=== PATIENT | male | born 1955 | race Caucasian/White ===

== ENCOUNTER 2019-05-23 12:37 | Outpatient (CLI) | payer OTHER, SELFPAY ==
[2019-05-23 13:00] LABS: Basophils Absolute Auto 0.06 K/mm3 (0.00-0.10); Basophils Percent Auto 0.8 % (0.0-1.0); Eosinophils Absolute Auto 0.33 K/mm3 (0.02-0.50); Eosinophils Percent Auto 4.4 % (1.0-6.0); Hematocrit 43.6 % (40.0-54.0); Hemoglobin 14.2 g/dL (14.0-18.0); Immature Granulocyte Absolute 0.03 K/mm3 (0.00-0.00); Immature Granulocyte Percent A 0.4 % (0.0-0.0); Lymphocytes Absolute Auto 2.35 K/mm3 (1.10-4.50); Lymphocytes Percent Auto 31.5 % (18.0-42.0); Mean Corpuscular HGB Conc 32.6 g/dL (32.0-36.0); Mean Corpuscular Hemoglobin 27.4 pg (27.0-31.0); Mean Platelet Volume 10.2 fl (8.7-11.0); Monocytes Absolute Auto 0.69 K/mm3 (0.10-0.90); Monocytes Percent Auto 9.2 % (2.0-11.0); Neutrophils Percent Auto 53.7 % (50.0-70.0); Platelet Count Result 186 K/mm3 (150-420); Red Blood Count 5.19 M/mm3 (4.70-6.10); Red Cell Distribution Width 13.5 % (11.6-14.4); White Blood Count 7.5 K/mm3 (4.8-10.8)
[2019-05-23 13:04] LABS: Add Urine Microscopic? YES; Appearance Urine Clear (Clear); Bilirubin Urine Negative (Negative); Blood Urine Negative (Negative); Color Urine Yellow (Yellow); Glucose Urine UA Negative (Negative); Ketones Urine Negative (Negative); Leukocyte Esterase Ur Negative LEU/UL (Negative); Nitrate Urine Negative (Negative); Protein Urine 1+ (Negative); Specific Grav Ur 1.025 (1.010-1.020); Urobilinogen Urine 0.2 mg/dL (0.2-1.0)
[2019-05-23 13:16] LABS: Hemoglobin A1C 7.4 % (<5.7)
[2019-05-23 13:19] LABS: Creatinine Urine 58.17 mg/dL (40-278)
[2019-05-23 13:30] LABS: Bacteria Urine None seen /hpf; RBC Urine None seen /hpf (0-2); Squamous Epithelial Cell Urine Rare /hpf (Few); WBC Urine None seen /hpf (0-3)
[2019-05-23 13:57] LABS: Microalbumin Urine Random 340.3 mg/L
[2019-05-23 14:29] LABS: Alanine Aminotransferase 32 U/L (16-63); Albumin Level 3.8 g/dL (3.4-5.0); Alkaline Phosphatase 96 U/L (46-116); Anion Gap 16.7 mmol/L (7-16); Aspartate Amino Transferase 19 U/L (15-37); Bilirubin,Total 0.4 mg/dL (0.00-1.00); Blood Urea Nitrogen 38 mg/dL (7-18); Calcium 9.3 mg/dL (8.5-10.1); Carbon Dioxide 22 mmol/L (21-32); Chloride 106 mmol/L (98-108); Cholesterol 191 mg/dL (0-200); Estimated Glomerular Filt Rate 41; Glucose 167 mg/dL (70-99); HDL Direct 47 mg/dL (40-60); LDL Cholesterol Calculated 100 mg/dL (<130); Osmolality Calculated 303 mOsm/kg (285-295); Potassium 4.7 mmol/L (3.5-5.1); Sodium 140 mmol/L (136-145); Thyroid Stimulating Hormone 3.08 uIU/mL (0.36-3.74); Total Protein 7.4 g/dL (6.4-8.2); Triglycerides 222 mg/dL (0-150)
[2019-05-23 21:22] LABS: Prostate Specific Antigen 0.7 ng/mL (< OR = 4.0)
== END 2019-05-23 12:38 | disposition home or self-care (01) ==
LOC: CHSLAB 12:42
PROVIDERS: PCP Internal Medicine; Visit Provider Internal Medicine
DX: Z00.00 Encounter for general adult medical examination without abnormal findings (principal); Z12.5 Encounter for screening for malignant neoplasm of prostate; E11.9 Type 2 diabetes mellitus without complications; I10 Essential (primary) hypertension; E78.5 Hyperlipidemia, unspecified
CPT/HCPCS: 36415; 80053; 80061; 81001; 82043; 83036; 84153; 84443; 85025; G0103

== ENCOUNTER 2022-07-11 09:36 | Outpatient (CLI) | payer MEDICARE, SELFPAY ==
--- NOTE | ~2022-07-11 | US_ITS ---
EXAMINATION: US venous doppler UE RT DATE: 07/11/2022 10:20 INDICATION: Right forearm swelling. TECHNIQUE: Grayscale ultrasound images without and with compression and Doppler ultrasound images of the right upper extremity veins were obtained. COMPARISON: None. FINDINGS: The visualized portions of the right internal jugular vein, subclavian vein, axillary vein, brachial veins, basilic vein, cephalic vein, radial vein, and ulnar vein are patent. IMPRESSION: 1. No deep venous thrombosis. Reviewed, dictated and finalized at location A.
== END 2022-07-11 09:37 | disposition home or self-care (01) ==
PROVIDERS: PCP Internal Medicine; Visit Provider Internal Medicine
DX: M79.89 Other specified soft tissue disorders (principal)
CPT/HCPCS: 93971

== ENCOUNTER 2023-07-16 10:05 | Outpatient (CLI) | payer MEDICARE, SELFPAY ==
--- NOTE | ~2023-07-16 | XR_ITS ---
XR finger 5th LT min 2V DATE: 07/16/2023 10:28 INDICATION: Swelling and redness, possible wooden foreign body fifth fingertip TECHNIQUE: 5 views COMPARISON: None FINDINGS: There is soft tissue swelling of the distal third of the fifth digit. No radiopaque soft ti ssue foreign body or subcutaneous emphysema is detected. No fracture, dislocation, periosteal reactio n or bone destruction. There is osteoarthritic change at the proximal and distal interphalangeal joints of the fifth digit. IMPRESSION: Distal soft tissue swelling; no radiopaque foreign body Osteoarthritis Reviewed, dictated and finalized at location B.
== END 2023-07-16 10:06 | disposition home or self-care (01) ==
LOC: CHSIMG 10:10
PROVIDERS: PCP Internal Medicine; Visit Provider Internal Medicine
DX: L08.89 Other specified local infections of the skin and subcutaneous tissue (principal); M79.89 Other specified soft tissue disorders; M19.042 Primary osteoarthritis, left hand
CPT/HCPCS: 73140

== ENCOUNTER 2023-08-15 10:29 | Outpatient (CLI) | payer MEDICARE, SELFPAY ==
--- NOTE | ~2023-08-15 | MR_ITS ---
EXAMINATION: MR hand LT wo con DATE: 08/15/2023 11:34 INDICATION: Nontraumatic pain and swelling in the fifth digit of the left hand with fluid collection lanced and drained one week prior TECHNIQUE: Magnetic resonance imaging (MRI) of the left hand was performed without intravenous contra st to include the metacarpals and digits. Sequences included sagittal, coronal, and axial proton-dens ity weighted fast spin echo without and with fat saturation. COMPARISON: Radiographs dated 07/16/2023 FINDINGS: Bone alignment is normal. T2 hyperintense lesions which could represent intraosseous cystic change ve rsus erosions most prominent at the radial aspect of the heads of the second and third metacarpals wi th tiny lesion at the medial head of the fourth metacarpal and additional small lesion at the radial aspect of the head of the third proximal phalanx. Bone marrow signal is otherwise normal throughout. No fracture or pathologic marrow replacing process. Polyarticular osteoarthritis which appears genera lly mild with typical distribution at the radial aspect of the carpus and at the metacarpophalangeal and interphalangeal joints. Physiologic amount fluid in the joint spaces. Visualized portions of the flexor and extensor tendons appear normal. There is however moderate amount of fluid consistent with tenosynovitis surrounding the flexor tendons to the fifth digit. The collateral ligament complex at t he metatarsophalangeal and interphalangeal joints appear normal. Intrinsic musculature of the visuali zed left hand is unremarkable. IMPRESSION: 1. Moderate amount of fluid extending along the normal appearing flexor tendons to the fifth digit co nsistent with nonspecific tenosynovitis could be either septic, a septic inflammatory process in the setting of gout or mechanical in etiology. 2. T2 hyperintense lesions at a few of the heads of the metacarpals and at the head of the third prox imal phalanx which could represent degenerative cystic change, intraosseous ganglion cysts or erosion s such as in the setting of gout. Consider correlation with plain radiographs. Reviewed, dictated and finalized at location A. IMPRESSION: 1. Moderate amount of fluid extending along the normal appearing flexor tendons to the fifth digit consistent with nonspecific tenosynovitis could be either s eptic, a septic inflammatory process in the setting of gout or mechanical in et iology. 2. T2 hyperintense lesions at a few of the heads of the metacarpals and at the head of the third proximal phalanx which could represent degenerative cystic ch izzy, intraosseous ganglion cysts or erosions such as in the setting of gout. C onsider correlation with plain radiographs.
== END 2023-08-15 10:30 | disposition home or self-care (01) ==
LOC: CHSIMG 10:31
PROVIDERS: PCP Internal Medicine; Visit Provider Internal Medicine
DX: R22.32 Localized swelling, mass and lump, left upper limb (principal)
CPT/HCPCS: 73218

== ENCOUNTER 2023-12-22 16:29 | Outpatient (CLI) | payer MEDICARE, SELFPAY ==
--- NOTE | ~2023-12-22 | XR_ITS ---
EXAM: XR shoulder RT min 2V DATE: 12/22/2023 17:29 HISTORY: RT SHOULDER PAIN,CHRONIC,LROM . COMPARISON: None available. FINDINGS: Normal mineralization. No fracture or dislocation. No lytic or blastic lesion. Moderate AC joint and severe glenohumeral joint degenerative change. No erosion or periosteal change. Soft tissu es within normal limits. IMPRESSION: Moderate AC joint and severe glenohumeral joint osteoarthritis. Reviewed, dictated and finalized at location K.
== END 2023-12-22 16:30 | disposition home or self-care (01) ==
LOC: CHSIMG 16:32
PROVIDERS: PCP Internal Medicine; Visit Provider Internal Medicine
DX: M25.511 Pain in right shoulder (principal); M19.011 Primary osteoarthritis, right shoulder
CPT/HCPCS: 73030

== ENCOUNTER 2025-03-18 22:42 | Observation (INO) | payer MEDICARE, SELFPAY ==
[2025-03-18] VITALS (8 sets, daily range): BP systolic 139–149; BP diastolic 80–86; PULSE 68–82; RESP 12–24; TEMP 36.8; O2SAT 97–98
--- NOTE | ~2025-03-18 | CT_ITS ---
EXAMINATION: CT abdomen pelvis wo con DATE: 03/19/2025 00:13 INDICATION: Abdominal pain. Abdominal swelling. TECHNIQUE: Computed tomography (CT) of the abdomen and pelvis was performed without intravenous contrast. Automated exposure control and iterative reconstruction technique were employed. The dose-length product was 1126.19 mGy-cm. COMPARISON: CT abdomen and pelvis 10/27/2005 FINDINGS: The visualized portions of the lung bases demonstrate mild atelectasis. There is peripheral septal thickening in right middle lobe and right lower lobe, consistent with mild pulmonary edema versus chronic interstitial lung disease. There is a 15 mm nodule in right lower lobe. There is a small right pleural effusion. The heart size is normal. There are coronary artery calcifications. No pericardial effusion. The liver, gallbladder, spleen, pancreas, adrenal glands, and kidneys are normal. There is no urolithiasis. There is a gastrostomy tube in expected position. There is a large volume of stool in the colon with distention of the rectum and fat stranding around the rectum, consistent with stercoral colitis. There is diverticulosis of the colon without evidence of diverticulitis. There are no pathologically enlarged lymph nodes. There is no free intraperitoneal fluid. There is a left inguinal hernia containing fat. There is mild thoracic spondylosis and moderate lumbar spondylosis. IMPRESSION: 1. Stercoral colitis. 2. 15 mm right lower lobe pulmonary nodule, which may be infection or primary bronchogenic carcinoma. Noncontrast chest CT is recommended in 1-3 months. 3. Interstitial opacities in right middle lobe and right lower lobe, consistent with mild pulmonary edema versus chronic interstitial lung disease. 4. Small right pleural effusion. Reviewed, dictated and finalized at location E. [place] EVENT ASSISTANT IMPRESSION: 1. Stercoral colitis. 2. 15 mm right lower lobe pulmonary nodule, which may be infection or primary b ronchogenic carcinoma. Noncontrast chest CT is recommended in 1-3 months. 3. Interstitial opacities in right middle lobe and right lower lobe, consistent with mild pulmonary edema versus chronic interstitial lung disease. 4. Small right pleural effusion.
--- NOTE | 2025-03-18 22:52 | ECG_ITS ---
Test Date: 2025-03-18 23:29:23 Measurements Intervals [place] Rate: 66 P: 0 IA: 0 QRS: 39 QRSD: 84 T: 139 QT: 401 QTc: 421 Interpretive Statements ATRIAL FIBRILLATION BORDERLINE ST ABNORMALITY- ANTEROLAT/INF LEADS BASELINE ARTIFACT- I, II, III, AVR, AVL, AVF, V1-V6 ABNORMAL ECG No previous ECG available for comparison Electronically Signed On 03-19-2025 09:09:12 NURSING SCHEDULER by Jalen Stack D.O.
[2025-03-18] MEDS: SODIUM CHLORIDE 0.9% IV 1,000 ML 999 ML IV CONT (23:05)
[2025-03-18] MEDS: HYDROmorphone HCL INJ (*CRX) 1 MG/ML SYR 0.5 MG IV PUSH (23:08)
[2025-03-18 23:09] LABS: Hematocrit 32.1 % (42.0-52.0); Hemoglobin 9.8 g/dL (14.0-18.0); Immature Granulocyte Percent A 2.4 % (0-0.5); Lymphocytes Absolute Auto 2.58 K/mm3 (0.9-3.2); Mean Corpuscular HGB Conc 30.5 g/dl (32-36); Mean Corpuscular Hemoglobin 27.2 pg (26-34); Mean Corpuscular Volume 89.2 fl (80-100); Nucleated Red Blood Cells Absolute Auto 0.000 K/mm3 (0.0-0.012); Nucleated Red Blood Cells Perc 0.0 % (0.0-0.2); Platelet Count Result 249 k/mm3 (150-375); Red Blood Count 3.60 M/mm3 (4.6-6.20); White Blood Count 8.8 K/mm3 (4.5-10.0)
[2025-03-18 23:20] LABS: INR 1.1; Prothrombin Time 13.9 Seconds (11.1-14.7)
[2025-03-18 23:21] LABS: Alanine Aminotransferase 30 U/L (6-50); Albumin Level 3.8 g/dL (3.5-5.1); Alkaline Phosphatase 159 U/L (38-126); Anion Gap 11 mmol/L (4-12); Aspartate Amino Transferase 32 U/L (17-59); Bilirubin,Total 0.4 mg/dL (0.2-1.3); Blood Urea Nitrogen 47 mg/dL (9-20); Calcium 9.3 mg/dL (8.4-10.2); Carbon Dioxide 22 mmol/L (22-30); Chloride 104 mmol/L (98-107); Estimated CRCL calculation 36 ml/min; Estimated Glomerular Filt Rate 29; Glucose 173 mg/dL (65-110); Lipase 95 U/L (23-300); Partial Thromboplastin Time 37.7 Seconds (22.3-36.8); Potassium 4.3 mmol/L (3.4-5.0); Sodium 137 mmol/L (137-145); Total Protein 7.5 g/dL (6.3-8.2)
--- NOTE | 2025-03-18 23:21 | PC.NURSE ---
Report to Cat RN
--- NOTE | 2025-03-18 23:25 | PC.NURSE ---
Report received from KELLI Tomlinson. Assumed care of patient at this time.
--- NOTE | 2025-03-18 23:28 | ED.ABDPAIN ---
HPI - Abdominal Pain General Chief Complaint: Abdominal Pain <Fern Romano APRN - Last Filed: 03/19/25 02:47> Stated Complaint: abd pain <Fern Romano APRN - Last Filed: 03/19/25 02:47> Time Seen by Provider: 03/18/25 22:52 <Fern Romano APRN - Last Filed: 03/19/25 02:47> History of Present Illness HPI narrative: Patient is a 70-year-old male who presents to the ER with bilateral lower abdominal pain and bruising. He [place] via EMS from a local [place], where he has resided since having a stroke several months ago. Patient is aphasic from his previous stroke and is a poor historian at time of examination. Per patient's medical record he has a history of diabetes, anemia, CVA, and constipation. <Fern Romano APRN - Last Filed: 03/19/25 02:47> Related Data Home Medications: Home Medications ?Medication ?Instructions ?Recorded ?Confirmed ?Last Taken ?Type acetaminophen 325 mg tablet 650 mg feeding tube Q4H PRN pain 02/23/25 02/23/25 Unknown History lactobacillus combination no.4 3 3,000 mmu cells PO HS 02/23/25 02/23/25 02/22/25 History billion cell capsule (Probiotic) lidocaine HCl 4 % topical liquid ea topical DAILY PRN pain 02/23/25 02/23/25 History roll-on (Theraworx Pain Relief) melatonin 3 mg tablet 3 mg PO HS PRN sleep 02/23/25 02/23/25 Unknown History polyethylene glycol 3350 17 17 g feeding tube DAILY 02/23/25 02/23/25 02/23/25 History gram/dose oral powder (Miralax) sennosides 8.6 mg tablet (senna) 8.6 mg feeding tube BID PRN 02/23/25 02/23/25 Unknown History constipation <Fern Romano APRN - Last Filed: 03/19/25 02:47> Allergies/Adverse Reactions: Allergies Allergy/AdvReac Type Severity Reaction Status Date / Time No Known Allergies Allergy Unverified 12/13/24 09:54 <Fern Romano APRN - Last Filed: 03/19/25 02:47> Review of Systems Review of Systems: All systems reviewed & are unremarkable except as noted in HPI and below <Fern Romano APRN - Last Filed: 03/19/25 02:47> PMFSH Past Medical History Medical History: Medical History CKD (chronic kidney disease) Hyperlipidemia Kidney disorder Diabetes Hypertension <Fern Romano APRN - Last Filed: 03/19/25 02:47> Family History Family History: Family History Father Hypertension Alcoholism <Fern Romano APRN - Last Filed: 03/19/25 02:47> Social History Social History: Social History Social History: Caffeine- coffee daily Smoking status: Light tobacco smoker Tobacco type: cigars Alcohol intake: never Alcohol use details: Beer Substance use: never Lack of Transportation: No Lack of Food: Never True Current Housing: I Have Housing Concerned About Future Housing: No Difficulty Paying Gas/Electric Bills: No Difficulty Paying for Meds: No Currently Unemployed: No Education: Associate Degree Difficulty w/ Childcare or Family Care: No Living arrangements: alone Occupation/Education: retired 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 HEAD: Normocephalic, atraumatic. NECK: Supple. No adenopathy, no masses. RESPIRATORY: Airway patent, respirations nonlabored. Clear to auscultation bilaterally, no rales, rhonchi, wheezing. CARDIOVASCULAR: Regular rate and rhythm without murmurs, rubs, or gallops. Peripheral pulses 2+ and equal bilaterally. ABDOMINAL: Soft, lower quadrant tenderness, + distended. Normoactive BS. MUSCULOSKELETAL: Moves all extremities. Strength/ROM intact without gross deformities. SKIN: Warm, dry, normal color. No rashes. NEURO: aphasia at baseline, L sided extremity weakness (baseline) PSYCHIATRIC: Crying out in pain <Fern Romano, TELEPHONE COLLECTOR - Last Filed: 03/19/25 02:47> Course PRESS WORKER HELPER/PA Physician Supervision This visit was performed by both a physician and an APC. I performed all aspects of the MDM as documented. <Frantz Coughlin, - Last Filed: 03/19/25 06:18> Vital Signs Vital signs: Vital Signs Temperature 98.2 F 03/18/25 22:45 Pulse Rate 82 03/18/25 22:45 Respiratory Rate 20 03/18/25 22:45 Blood Pressure 149/86 H 03/18/25 22:45 Pulse Oximetry 97 03/18/25 22:45 Oxygen Delivery Room Air 03/18/25 22:45 Temperature 98.2 F 03/18/25 22:45 Pulse Rate 62 03/19/25 06:15 Respiratory Rate 19 03/19/25 06:15 Blood Pressure 149/84 H 03/19/25 06:15 Pulse Oximetry 98 03/19/25 06:15 Oxygen Delivery Room Air 03/18/25 22:45 <Fern Romano, TELEPHONE COLLECTOR - Last Filed: 03/19/25 02:47> Vital Signs Temperature 98.2 F 03/18/25 22:45 Pulse Rate 82 03/18/25 22:45 Respiratory Rate 20 03/18/25 22:45 Blood Pressure 149/86 H 03/18/25 22:45 Pulse Oximetry 97 03/18/25 22:45 Oxygen Delivery Room Air 03/18/25 22:45 Temperature 98.2 F 03/18/25 22:45 Pulse Rate 62 03/19/25 06:15 Respiratory Rate 19 03/19/25 06:15 Blood Pressure 149/84 H 03/19/25 06:15 Pulse Oximetry 98 03/19/25 06:15 Oxygen Delivery Room Air 03/18/25 22:45 <Frantz Coughlin, - Last Filed: 03/19/25 06:18> MDM MDM Narrative Medical decision making narrative: Patient is a 70-year-old male who presents to the ER with bilateral lower abdominal pain and bruising. He presents via EMS from a local retirement, where he has resided since having a stroke several months ago. Patient is aphasic from his previous stroke and is a poor historian at time of examination. Per patient's medical record he has a history of diabetes, anemia, CVA, and constipation. Labs Ordered: CBC, CMP, CRP, lactic acid, lipase, PTT, INR Imaging Ordered: CT abdomen pelvis Medications Ordered: 2 L normal saline IV bolus, soapsuds enema, Dilaudid 0.5 mg IV Results: patient's CT scan indicates indwelling gastrostomy tube in appropriate position. Rectal fecal impaction with surrounding rectal edema suggesting stercoral colitis. No bowel obstruction. Urinary bladder wall thickening, nonspecific. Correlate with urinalysis. No hydronephrosis or nephrolithiasis. trace right pleural effusion. Bibasilar atelectasis and/or infiltrate. Diagnosis: Stercoral colitis, rectal fecal impaction Patient Education/Shared MDM: Results of lab work and imaging shared with patient and his family. RNs gave patient a soapsuds enema with no results. PRESS WORKER HELPER performed a rectal exam afterwards, which produced soft, brown stool. His hemoccult was negative. [id number] Care signed out to Dr. Coughlin pending stool results. <Fern Romano, TELEPHONE COLLECTOR - Last Filed: 03/19/25 02:47> Patient is a 70-year-old male who presents to the ER with bilateral lower abdominal pain and bruising. He presents via EMS from a local retirement, where he has resided since having a stroke several months ago. Patient is aphasic from his previous stroke and is a poor historian at time of examination. Per patient's medical record he has a history of diabetes, anemia, CVA, and constipation. Labs Ordered: CBC, CMP, CRP, lactic acid, lipase, PTT, INR Imaging Ordered: CT abdomen pelvis Medications Ordered: 2 L normal saline IV bolus, soapsuds enema, Dilaudid 0.5 mg IV Results: patient's CT scan indicates indwelling gastrostomy tube in appropriate position. Rectal fecal impaction with surrounding rectal edema suggesting stercoral colitis. No bowel obstruction. Urinary bladder wall thickening, nonspecific. Correlate with urinalysis. No hydronephrosis or nephrolithiasis. trace right pleural effusion. Bibasilar atelectasis and/or infiltrate. Diagnosis: Stercoral colitis, rectal fecal impaction Patient Education/Shared MDM: Results of lab work and imaging shared with patient and his family. RNs gave patient a soapsuds enema with no results. PRESS WORKER HELPER performed a rectal exam afterwards, which produced soft, brown stool. His hemoccult was negative. [facility] signed out to Dr. Coughlin pending stool results. Patient not having any significant stool output. Will plan for admission. I spoke with the hospitalist on-call has accepted the patient for admission. I spoke with Gastroenterology on-call who will see the patient on consultation. <Frantz Coughlin, DO - Last Filed: 03/19/25 06:18> Differential Diagnosis Differential Diagnosis: Constipation, small-bowel obstruction, incarcerated hernia <Fern Romano APRN - Last Filed: 03/19/25 02:47> Lab Data [facility] Lab Attestation statement: I personally reviewed the patient's lab results. <Fern Romano APRN - Last Filed: 03/19/25 02:47> Result diagrams: 03/18/25 23:01 03/18/25 23:01 <Fern Romano APRN - Last Filed: 03/19/25 02:47> Labs: Lab Results 03/18/25 03/18/25 03/19/25 Range/Units 00:47 23:01 01:50 WBC 8.8 (4.5-10.0) K/mm3 RBC 3.60 L (4.6-6.20) M/mm3 Hgb 9.8 L (14.0-18.0) g/dL Hct 32.1 L (42.0-52.0) % MCV 89.2 (80-100) fl MCH 27.2 (26-34) pg MCHC 30.5 L (32-36) g/dl RDW 15.4 H (11.5-14.5) % Plt Count 249 (150-375) k/mm3 MPV 9.9 (7.4-10.4) fl Immature Gran % (Auto) 2.4 H (0-0.5) % Neut % (Auto) 53.4 (45.5-73.1) % Lymph % (Auto) 29.5 (18.3-44.2) % [place] % (Auto) 11.4 H (2.6-8.5) % Eos % (Auto) 2.6 (0-4.4) % Baso % (Auto) 0.7 (0.2-1.2) % Lymph # (Auto) 2.58 (0.9-3.2) K/mm3 [place] # (Auto) 1.0 H (0.1-0.6) K/mm3 Eos # (Auto) 0.2 (0-0.3) K/mm3 Baso # (Auto) 0.1 (0.0-0.1) K/mm3 Abs Immat Gran (auto) 0.21 H (0.00-0.031) K/mm3 Absolute Neuts (auto) 4.7 (1.3-6.7) K/mm3 Absolute Nucleated RBC 0.000 (0.0-0.012) K/mm3 Nucleated RBC % 0.0 (0.0-0.2) % PT 13.9 (11.1-14.7) Seconds INR 1.1 APTT 37.7 H (22.3-36.8) Seconds Sodium 137 (137-145) mmol/L Potassium 4.3 (3.4-5.0) mmol/L Chloride 104 (98-107) mmol/L Carbon Dioxide 22 (22-30) mmol/L Anion Gap 11 (4-12) mmol/L BUN 47 H (9-20) mg/dL Creatinine 2.27 H (0.7-1.3) mg/dL Estim Creat Clear Calc 36 ml/min Estimated GFR 29 L (59 - ) Glucose 173 H (65-110) mg/dL Lactic Acid 3.7 H 1.0 (0.7-2.0) mmol/L Calcium 9.3 (8.4-10.2) mg/dL Total Bilirubin 0.4 (0.2-1.3) mg/dL AST 32 (17-59) U/L ALT 30 (6-50) U/L Alkaline Phosphatase 159 H (38-126) U/L C-Reactive Protein 2.7 H (<1.0) mg/dL Total Protein 7.5 (6.3-8.2) g/dL Albumin 3.8 (3.5-5.1) g/dL Lipase 95 (23-300) U/L <Fern Romano, TELEPHONE COLLECTOR - Last Filed: 03/19/25 02:47> Lab Results 03/18/25 03/18/25 03/19/25 Range/Units 00:47 23:01 01:50 WBC 8.8 (4.5-10.0) K/mm3 RBC 3.60 L (4.6-6.20) M/mm3 Hgb 9.8 L (14.0-18.0) g/dL Hct 32.1 L (42.0-52.0) % MCV 89.2 (80-100) fl MCH 27.2 (26-34) pg MCHC 30.5 L (32-36) g/dl RDW 15.4 H (11.5-14.5) % Plt Count 249 (150-375) k/mm3 MPV 9.9 (7.4-10.4) fl Immature Gran % (Auto) 2.4 H (0-0.5) % Neut % (Auto) 53.4 (45.5-73.1) % Lymph % (Auto) 29.5 (18.3-44.2) % [place] % (Auto) 11.4 H (2.6-8.5) % Eos % (Auto) 2.6 (0-4.4) % Baso % (Auto) 0.7 (0.2-1.2) % Lymph # (Auto) 2.58 (0.9-3.2) K/mm3 [place] # (Auto) 1.0 H (0.1-0.6) K/mm3 Eos # (Auto) 0.2 (0-0.3) K/mm3 Baso # (Auto) 0.1 (0.0-0.1) K/mm3 Abs Immat Gran (auto) 0.21 H (0.00-0.031) K/mm3 Absolute Neuts (auto) 4.7 (1.3-6.7) K/mm3 Absolute Nucleated RBC 0.000 (0.0-0.012) K/mm3 Nucleated RBC % 0.0 (0.0-0.2) % PT 13.9 (11.1-14.7) Seconds INR 1.1 APTT 37.7 H (22.3-36.8) Seconds Sodium 137 (137-145) mmol/L Potassium 4.3 (3.4-5.0) mmol/L Chloride 104 (98-107) mmol/L Carbon Dioxide 22 (22-30) mmol/L Anion Gap 11 (4-12) mmol/L BUN 47 H (9-20) mg/dL Creatinine 2.27 H (0.7-1.3) mg/dL Estim Creat Clear Calc 36 ml/min Estimated GFR 29 L (59 - ) Glucose 173 H (65-110) mg/dL Lactic Acid 3.7 H 1.0 (0.7-2.0) mmol/L Calcium 9.3 (8.4-10.2) mg/dL Total Bilirubin 0.4 (0.2-1.3) mg/dL AST 32 (17-59) U/L ALT 30 (6-50) U/L Alkaline Phosphatase 159 H (38-126) U/L C-Reactive Protein 2.7 H (<1.0) mg/dL Total Protein 7.5 (6.3-8.2) g/dL Albumin 3.8 (3.5-5.1) g/dL Lipase 95 (23-300) U/L <Frantz Coughlin DO - Last Filed: 03/19/25 06:18> Discharge Plan Discharge Clinical Impression: Fecal impaction, Stercoral colitis <Fern Romano APRN - Last Filed: 03/19/25 02:47> Patient Disposition: Still a Patient <Fern Romano APRN - Last Filed: 03/19/25 02:47> Condition: Stable <Fern Romano APRN - Last Filed: 03/19/25 02:47> Instructions: Antibiotic Form <Fern Romano APRN - Last Filed: 03/19/25 02:47> Patient Language: Spanish <Fern Romano APRN - Last Filed: 03/19/25 02:47> Prescriptions: No Action acetaminophen 325 mg tablet 650 mg feeding tube Q4H PRN (Reason: pain) Probiotic 3 billion cell capsule 3,000 mmu cells PO HS Rx Instructions: administer with a meal melatonin 3 mg tablet 3 mg PO HS PRN (Reason: sleep) polyethylene glycol 3350 [Miralax] 17 gram/dose powder 17 g feeding tube DAILY sennosides [senna] 8.6 mg tablet 8.6 mg feeding tube BID PRN (Reason: constipation) lidocaine HCl [Theraworx Pain Relief] 4 % liquid roll-on topical DAILY PRN (Reason: pain) hydrocodone-acetaminophen 5-325 mg tablet 1 tablet PO Q8H PRN (Reason: pain) Qty: 10 0RF insulin lispro [Humalog U-100 Insulin] 100 unit/mL Solution 4 - 8 unit subcut TID.ARISSI Qty: 3 0RF Protocol: Insulin Corrective High-Dose Condition: glucose < 70 mg/dl Dose/Route: Follow hypoglycemia order Condition: glucose 70-200 mg/dl Dose/Route: No additional insulin Condition: glucose 201-250 mg/dl Dose/Route: 4 units sub-Q Condition: glucose 251-300 mg/dl Dose/Route: 5 units sub-Q Condition: glucose 301-350 mg/dl Dose/Route: 6 units sub-Q Condition: glucose 351-400 mg/dl Dose/Route: 8 units sub-Q Condition: glucose > 400 mg/dl Dose/Route: Call MD Protocol Text: *No Correction Dose at Bedtime* baclofen 10 mg Tablet 5 mg feeding tube Q8HR 30 Days Qty: 45 0RF gabapentin 100 mg Capsule 200 mg feeding tube TID 30 Days Qty: 180 0RF gabapentin 100 mg Capsule 100 mg feeding tube TID PRN (Reason: Anxiety) Qty: 0 0RF pantoprazole 40 mg Tablet,Delayed Release (Dr/Ec) 40 mg PO QAM 30 Days Qty: 30 0RF simethicone 80 mg Tablet,Chewable 80 mg feeding tube QID Qty: 0 0RF albuterol sulfate 2.5 mg /3 mL (0.083 %) solution for nebulization 1.25 mg inhalation Q2H PRN (Reason: shortness of breath or wheezing) Qty: 75 0RF ondansetron HCl 4 mg tablet 4 mg PO Q4H PRN (Reason: nausea and vomiting) Qty: 20 0RF fluoxetine 20 mg tablet 20 mg feeding tube QPM 30 Days Qty: 30 0RF <Fern Romano, TELEPHONE COLLECTOR - Last Filed: 03/19/25 02:47> Follow-up/Referrals: Srinivasan Lucero MD [Primary Care Provider, Internal Medicine] <Fern Romano APRN - Last Filed: 03/19/25 02:47> Time of Disposition: 06:17 <Fern Romano APRN - Last Filed: 03/19/25 02:47> 06:17 <Frantz Coughlin DO - Last Filed: 03/19/25 06:18>
[2025-03-19] VITALS (21 sets, daily range): BP systolic 116–171; BP diastolic 67–98; PULSE 53–86; RESP 11–20; TEMP 36.6; O2SAT 93–100
[2025-03-19] MEDS: SODIUM CHLORIDE 0.9% IV 1,000 ML 999 ML IV CONT (01:04)
[2025-03-19 01:11] LABS: CRP 2.7 mg/dL (<1.0)
--- NOTE | 2025-03-19 03:19 | PC.NURSE ---
Patient has not produced any BM at this time, but a smear of BM is on brief. MANUFACTURED BUILDINGS REPAIRER and ERP notified.
--- NOTE | 2025-03-19 03:42 | PC.NURSE ---
[id number] Renée nurse at [place] calls for update. Renée given update at this time and notified that this RN will call back later when a disposition is determined.
--- NOTE | 2025-03-19 04:52 | PC.NURSE ---
Patients family given update and plan for admission info.
[2025-03-19] MEDS: SODIUM CHLORIDE 0.9% IV 1,000 ML 125 ML IV CONT (07:52)
--- NOTE | 2025-03-19 08:56 | WPCEDHO ---
ED Hand Off Checklist All vitals saved: yes IV Site documented: yes All med administrations documented: yes Triage Note Triage Note Patient brought from [place] 03/18/25 22:45 Reach by [facility] with complaints of pain/swelling and bruising to right lower abdominal -sudden onset this evening. Patient history of right side hemiplegia from from recent CVA- 02/05/2025 was just just sent from [facility] to [place] in last couple days. Patient has a G-tube that is only being flushed per EMS report. Normal BM today per staff. Bladder scan was 150ml. Pain is seen pinching that right lower abd. Patient groaning and cussing due to pain. Allergies No Known Allergies Allergy (Unverified 12/13/24 09:54) Family History (Last Reviewed 03/19/25 @ 00:44 by Fern Romano APRN) Father Hypertension Alcoholism Active Medications including assessments/comments Sodium Chloride (Normal Saline Iv) 1,000 mls @ 125 mls/hr IV CONT .Q8H JOSE Last Admin: 03/19/25 07:52 Dose: 125 mls/hr Documented By: ARIADNA Infusion/Titration Document 03/19/25 07:52 ARIADNA (Rec: 03/19/25 07:52 ELB [id number]) Intake IV Site Peripheral Access Left Hand Container Volume 1,000 Waste Amount 0 Dosing Infusion Rate 125 Cumulative Dose Not Applicable Increase/Decrease Started Elapsed Time Elapsed Time ( 0m minutes) Administered/Completed Medications Discontinued Medications Hydromorphone HCl (Hydromorphone Hcl Inj (*Crx) 1 Mg/Ml Syr) 0.5 mg IV PUSH ONCE STA Stop: 03/18/25 22:53 Last Admin: 03/18/25 23:08 Dose: 0.5 mg Documented By: TLAsad Sodium Chloride (Normal Saline Iv) 1,000 mls @ 999 mls/hr IV CONT .Q1H1M STA Stop: 03/18/25 23:52 Last Infusion: 03/19/25 00:10 Dose: Infused Documented By: Admin: 03/18/25 23:05 Dose: 999 mls/hr Documented By: TLB Sodium Chloride (Normal Saline Iv) 1,000 mls @ 999 mls/hr IV CONT .Q1H1M STA Stop: 03/19/25 01:47 Last Infusion: 03/19/25 02:03 Dose: Infused Documented By: [facility] Admin: 03/19/25 01:04 Dose: 999 mls/hr Documented By: ANIL Notes 03/19/25 04:52 Nurse Note by Magdalene Brown Patients family given update and plan for admission info. Initialized on 03/19/25 04:52 - END OF NOTE 03/19/25 03:42 Nurse Note by Magdalene Brown [phone] Renée, nurse at [facility] calls for update. Renée given update at this time and notified that this RN will call back later when a disposition is determined. Initialized on 03/19/25 03:42 - END OF NOTE 03/19/25 03:19 Nurse Note by Magdalene Brown. Patient has not produced any BM at this time, but a smear of BM is on brief. BINGO MANAGER and ERP notified. Initialized on 03/19/25 03:19 - END OF NOTE 03/18/25 23:25 Nurse Note by Magdalene Brown Report received from KELLI Tomlinson. Assumed care of patient at this time. Initialized on 03/18/25 23:25 - END OF NOTE 03/18/25 23:21 Nurse Note by Bushra Rossi Report to Cat RN Initialized on 03/18/25 23:21 - END OF NOTE Interventions/Assessments IV / Saline Lock, Insert Start: 03/18/25 22:40 Freq: Status: Active Protocol: Document 03/18/25 23:05 TLB (Rec: 03/18/25 23:06 TLB [id number]) IV Assessment Peripheral Access Left Hand IV Catheter Access Initiated Before Arrival Catheter Gauge 20 IV Care and WNL,Access Locked Maintenance IV / Saline Lock, Insert Start: 03/18/25 22:53 Freq: STAT Status: Active Protocol: Document 03/18/25 23:09 TLB (Rec: 03/18/25 23:09 TLB [id number]) IV Assessment Peripheral Access Left Hand IV Catheter Access Initiated Before Arrival Catheter Gauge 20 IV Care and Access Locked Maintenance PA: Gastrointestinal Assessment Start: 03/18/25 22:40 Freq: Status: Active Protocol: Document 03/18/25 23:09 TLB (Rec: 03/18/25 23:11 TLB [id number]) GI Assessment Gastrointestinal Pain Symptoms Description Soft,Tender Date of Last Bowel 03/18/25 Movement Last Vital Signs Temperature 98.2 F 03/18/25 22:45 Pulse Rate 86 03/19/25 08:55 Respiratory Rate 20 03/19/25 08:55 Pulse Oximetry 96 03/19/25 08:55 Blood Pressure 127/76 03/19/25 08:55 Blood Pressure Mean 93 03/19/25 08:55 Blood Pressure Position Sitting 03/18/25 23:43 Oxygen Delivery Room Air 03/18/25 22:45 Weight 107.5 kg 03/18/25 22:45 Last Result - Abnormals Only RBC 3.60 M/mm3 (4.6-6.20) L 03/18/25 23:01 Hgb 9.8 g/dL (14.0-18.0) L 03/18/25 23:01 Hct 32.1 % (42.0-52.0) L 03/18/25 23:01 MCHC 30.5 g/dl (32-36) L 03/18/25 23:01 RDW 15.4 % (11.5-14.5) H 03/18/25 23:01 Immature Gran % (Auto) 2.4 % (0-0.5) H 03/18/25 23:01 Irwin % (Auto) 11.4 % (2.6-8.5) H 03/18/25 23:01 Irwin # (Auto) 1.0 K/mm3 (0.1-0.6) H 03/18/25 23:01 Abs Immat Gran (auto) 0.21 K/mm3 (0.00-0.031) H 03/18/25 23:01 APTT 37.7 Seconds (22.3-36.8) H 03/18/25 23:01 BUN 47 mg/dL (9-20) H 03/18/25 23:01 Creatinine 2.27 mg/dL (0.7-1.3) H 03/18/25 23:01 Estimated GFR 29 (59-) L 03/18/25 23:01 Glucose 173 mg/dL (65-110) H 03/18/25 23:01 Lactic Acid 3.7 mmol/L (0.7-2.0) H 03/18/25 23:01 Alkaline Phosphatase 159 U/L (38-126) H 03/18/25 23:01 C-Reactive Protein 2.7 mg/dL (<1.0) H 03/18/25 00:47 Most Recent Suicide Severity Rating Suicide Severity Rating NO RISK INDICATED 03/18/25 22:45
--- NOTE | 2025-03-19 09:57 | ADMGEN ---
This patient, Zac Valenzuela, was admitted to [facility] Surg Room 332-01. Patient/family oriented to hospital policies and general routines including ID bracelet, bed and alarms, visiting hours, pain management, procedures, bathroom and other care routines, personal items, smoking policy, room service/diet, and visiting hours. Information on how to activate the Rapid Response Team has been discussed. Patient/Family are encouraged to report perceived risks to care and to ask questions if they do not understand what they are told or what they should do.
--- NOTE | 2025-03-19 10:07 | P.HP_ITS ---
H&P: HPI History of Present Illness Date/Time: 03/19/25 1117 Chief Complaint: Fecal impaction Narrative: Pt resting in bed upon my arrival. Pt is alert but with clear expressive aphasia. Able to answer me yes or no by shaking or nodding his head when asking him sx. Pt denies SOB, CP, N,V,D, or any other sx. Pt does continue to report lower abd pain, especially with palpation. Per nursing / NH, pt passed his swallow test on 03/12 and is able to eat a regular diet. Review of Systems Review of Systems: ROS unobtainable: Yes unobtainable due to medical condition (aphasia) [facility] Past Medical History Medical History CKD (chronic kidney disease) Hyperlipidemia Kidney disorder Diabetes Hypertension Family History Family History Father Hypertension Alcoholism Social History Social History Social History: Caffeine- coffee daily Smoking status: Light tobacco smoker Tobacco type: cigars Alcohol intake: never Alcohol use details: Beer Substance use: never Lack of Transportation: No Lack of Food: Never True Current Housing: I Have Housing Concerned About Future Housing: No Difficulty Paying Gas/Electric Bills: No Difficulty Paying for Meds: No Currently Unemployed: No Education: Associate Degree Difficulty w/ Childcare or Family Care: No Living arrangements: alone Occupation/Education: retired 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 Gender identity (if verbalized by the patient): Male Spiritual care concerns: No Meds Home Medications and Allergies Home Medications ?Medication ?Instructions ?Recorded ?Confirmed ?Type acetaminophen 325 mg tablet 650 mg feeding tube Q4H WA N pain 02/23/25 03/19/25 History lactobacillus combination no.4 3 3,000 mmu cells PO HS 02/23/25 03/19/25 History billion cell capsule (Probiotic) melatonin 3 mg tablet 3 mg PO HS PRN sleep 5 03/19/25 History polyethylene glycol 3350 17 17 g feeding tube DAILY 03/19/25 History gram/dose oral powder (Miralax) sennosides 8.6 mg tablet (senna) 8.6 mg feeding tube B ID PRN 02/23/25 03/19/25 History constipation baclofen 10 mg tablet 5 mg (1/2 x 10 mg) feeding t ube 03/15/25 03/19/25 Rx Q8HR 30 days #45 tabs fluoxetine 20 mg tablet 20 mg feeding tube QPM 30 da ys #30 03/15/25 03/19/25 Rx tabs gabapentin 100 mg capsule 100 mg feeding tube TID PRN 03/15/25 03/19/25 Rx Anxiety #0 caps gabapentin 100 mg capsule 200 mg (2 x 100 mg) feeding tube 03/15/25 03/19/25 Rx TID 30 days #180 caps hydrocodone 5 mg-acetaminophen 325 1 tablet PO Q8H PRN pain #10 tabs 03/15/25 03/19/25 Rx mg tablet insulin lispro 100 unit/mL 4 - 8 unit subcut TID.ARISS I #3 mL 03/15/25 03/19/25 Rx subcutaneous solution (Humalog U-100 Insulin) ondansetron HCl 4 mg tablet 4 mg PO Q4H PRN nausea and 03/15/25 03/19/25 Rx vomiting #20 tabs pantoprazole 40 mg tablet,delayed 40 mg PO QAM 30 days #30 tabs 03/15/25 03/19/25 Rx release simethicone 80 mg chewable tablet 80 mg feeding tube Q ID #0 tabs 03/15/25 03/19/25 Rx albuterol sulfate 2.5 mg/3 mL 2.5 mg inhalation Q2H WA N 03/19/25 03/19/25 History (0.083 %) solution for nebulization shortness of breat h or wheezing Allergies Allergy/AdvReac Type Severity Reaction Status Date / Time No Known Allergies Allergy Verified 03/19/25 10:26 Vital Signs Vital Signs - 24 hr 03/18/25 22:45 03/18/25 23:12 03/18/25 23:15 Temperature 98.2 F Pulse Rate 82 72 69 Respiratory Rate 20 17 12 Blood Pressure 149/86 H Pulse Oximetry 97 98 97 Oxygen Delivery Room Air 03/18/25 23:16 03/18/25 23:30 03/18/25 23:31 Temperature Pulse Rate 74 68 75 Respiratory Rate 24 H 18 24 H Blood Pressure 139/80 139/80 Pulse Oximetry 98 98 97 Oxygen Delivery 03/18/25 23:43 03/18/25 23:45 03/19/25 00:16 Temperature Pulse Rate 78 75 71 Respiratory Rate 18 19 Blood Pressure 139/80 Pulse Oximetry 97 98 96 Oxygen Delivery 03/19/25 01:37 03/19/25 01:45 03/19/25 02:30 Temperature Pulse Rate 73 57 L 55 L Respiratory Rate 17 13 13 Blood Pressure Pulse Oximetry 99 96 95 Oxygen Delivery 03/19/25 02:31 03/19/25 02:45 03/19/25 03:00 Temperature Pulse Rate 55 L 55 L 53 L Respiratory Rate 13 13 13 Blood Pressure 128/76 Pulse Oximetry 95 95 96 Oxygen Delivery 03/19/25 03:01 03/19/25 03:15 03/19/25 03:31 Temperature Pulse Rate 55 L 71 56 L Respiratory Rate 13 11 L 13 Blood Pressure 130/77 117/78 Pulse Oximetry 95 96 96 Oxygen Delivery 03/19/25 04:53 03/19/25 05:01 03/19/25 05:31 Temperature Pulse Rate 70 54 L 53 L Respiratory Rate 15 12 13 Blood Pressure 121/81 150/77 H 139/77 Pulse Oximetry 93 96 97 Oxygen Delivery 03/19/25 06:01 03/19/25 06:15 03/19/25 07:31 Temperature Pulse Rate 55 L 62 61 Respiratory Rate 14 19 15 Blood Pressure 149/84 H 149/84 H 154/88 H Pulse Oximetry 100 98 100 Oxygen Delivery 03/19/25 08:31 03/19/25 08:55 Temperature Pulse Rate 71 86 Respiratory Rate 19 20 Blood Pressure 171/98 H 127/76 Pulse Oximetry 96 Oxygen Delivery Exam Const: General: comfortable and no acute distress HENMT: Face/Nose/Sinus: Normal nares present Mouth: Yes moist mucous membranes Eyes: General: appearance normal, both eyes and all related structures Sclera: sclerae normal Pupils: Equal, round and reactive pupils present EOM: EOMs intact bilaterally Neck: Neck: supple Carotids: no bruits Resp: Effort & Inspection: normal respiratory effort Auscultation: clear to auscultation bilaterally Cardio: Rate: regular rate Rhythm: regular rhythm GI: Inspection: non-distended Other: G-tube present in RUQ, surrounding skin WDL TTP bilateral lower quadrants, no guarding : General: Yes bladder normal to palpation Skin: General skin exam: normal color and no rashes or lesions noted Neuro: Sensory Exam: normal sensation Other: R hemiplegia & hemiparesis, residual from recent CVA. Flat Lock Operator glove to R hand. Expressive aphasia Extrem: General: normal to inspection Psych: Mental Status: mental status grossly normal Affect: normal affect Results Labs Labs: Short CBC 03/18/25 Range/Units 23:01 WBC 8.8 (4.5-10.0) K/mm3 Hgb 9.8 L (14.0-18.0) g/dL Hct 32.1 L (42.0-52.0) % Plt Count 249 (150-375) k/mm3 BMP 03/18/25 23:01 Sodium 137 Potassium 4.3 Chloride 104 Carbon Dioxide 22 BUN 47 H Creatinine 2.27 H Glucose 173 H Calcium 9.3 Liver Function 03/18/25 Range/Units 23:01 Total Bilirubin 0.4 (0.2-1.3) mg/dL AST 32 (17-59) U/L ALT 30 (6-50) U/L Alkaline Phosphatase 159 H (38-126) U/L Albumin 3.8 (3.5-5.1) g/dL Quality VTE Prophylaxis VTE prophylaxis: mechanical ordered and pharmacologic ordered Assessment and Plan Assessment and plan (1) Fecal impaction: Code(s): K56.41 - Fecal impaction Status: Acute Assessment and Plan: Lower abd pain with distension. Soap suds enema in ED unsuccessful. Occult stool negative. GI consulted from the ED, will consult inpt. -May be due to recent start of narcotics, on extensive bowel home regimen, regimen continued today (2) Stage 4 chronic kidney disease: Code(s): N18.4 - Chronic kidney disease, stage 4 (severe) Status: Chronic Assessment and Plan: Appears to be at baseline creatinine, 2-2.4 & GFR, 27-33 -Avoid nephrotic meds (gabapentin is a home med) - Hx of CKD 4, pt was inpt at the end of last month and was seen by nephrology (presumed etiology though to be secondary to hypertension, diabetes, vascular disease, and age-related change +/- previous high dose NSAID use), follows with [facility] ([facility]) for management of his CKD - Dialysis: N/A - Trend renal function - Trend electrolytes, correct as needed (3) Stercoral colitis: Code(s): K52.89 - Other specified noninfective gastroenteritis and colitis Status: Acute Assessment and Plan: GI consulted (4) Type 2 diabetes mellitus with hyperglycemia: Code(s): E11.65 - Type 2 diabetes mellitus with hyperglycemia Status: Chronic Assessment and Plan: - hypoglycemia protocol - POC blood glucose ACHS - home medication: - correct regimen ordered - low/high dose TIDWM - A1C ordered, pending (5) CVA (cerebral vascular accident): Code(s): I63.9 - Cerebral infarction, unspecified Status: Acute Assessment and Plan: Recent ([facility] on 01/16/2025 --> [facility] 02/08/2025 --> [facility] 02/24/2025), new R hemiplegia & hemiparesis with expressive aphasia. -Has been at [facility] since dx --Passed swallow test on 03/12, able to eat / drink regular consistency, PEG tube placed initially for failed speech eval at initial hospital. -Continue home pain regimen Plan UA negative for infection, pending GI recs Patient does have a G-tube, according to nursing and NH ([place]) pt takes p.o. diet & some meds but the G-tube is for specific meds and supplementation if needed Time Spent with Patient Time with patient: 45 - 74 minutes Hospitalist MIPS Advance Care Plan I have confirmed that the patient's Advanced Care Plan is present, code status is documented, or surrogate decision maker is listed in patient medical record.: Yes The patient's Advanced Care plan is not present because:: Patient doesn't want to name surrogate or provider advance care plan
--- NOTE | 2025-03-19 14:15 | P.CONGI_ITS ---
Assessment and Plan Assessment and plan (1) Fecal impaction: Code(s): K56.41 - Fecal impaction Status: Acute Assessment and Plan: stool regimen, will give one dose of lactulose and also linzess reassess tomorrow pain is gone now (2) Stage 4 chronic kidney disease: Code(s): N18.4 - Chronic kidney disease, stage 4 (severe) Status: Chronic Assessment and Plan: stable (3) Constipation: Code(s): K59.00 - Constipation, unspecified Status: Acute Assessment and Plan: will need stool softener with fiber in diet (4) Expressive aphasia: Code(s): R47.01 - Aphasia Status: Acute Assessment and Plan: new baseline (5) CVA (cerebral vascular accident): Code(s): I63.9 - Cerebral infarction, unspecified Status: Acute (6) Right hemiparesis: Code(s): G81.91 - Hemiplegia, unspecified affecting right dominant side Status: Acute (7) Type 2 diabetes mellitus with hyperglycemia: Code(s): E11.65 - Type 2 diabetes mellitus with hyperglycemia Status: Chronic (8) Lower abdominal pain: Code(s): R10.30 - Lower abdominal pain, unspecified Status: Acute GI Consult Note Consult date/time: 03/19/25 14:15 Reason for consult: fecal impaction HPI: Zac Valenzuela is a 70 year old male with history of DM, CKD stage IV, recent CVA with expression aphasia who has been staying in local rehab. He can not give much history because of aphasia but family members at bedside. He was brought here after complaining of more lower abdominal pain, CT scan showed fecal impaction, 15 mm right lower lobe pulmonary nodule, Interstitial opacities in right middle lobe and right lower lobe, consistent with mild pulmonary edema versus chronic interstitial lung disease. He is comfortable now, mo more pain. Family says that he used to have normal BM before stroke and just recently his diet was advanced to regular after he passed swallow study (he was having liquid/pureed diet for weeks) and they wonder if that could have affected his BM. They think he had a colonoscopy but years ago. Review of Systems 2 Constitutional: Constitutional: Denies chills ENT: Reports Normal hearing present Cardiovascular: Cardiovascular: Denies chest pain Respiratory: Respiratory: Denies dyspnea on exertion Gastrointestinal: Gastrointestinal: Reports constipation Genitourinary: Genitourinary: Reports urinary incontinence Musculoskeletal: Musculoskeletal: Denies neck pain Integumentary/Breasts: Skin/Breast: Denies rash Neurologic: Reports Abnormal speech present [facility] Past Medical History Medical History (Updated 03/19/25 @ 14:20 by Indra Rodríguez MD) Lower abdominal pain Expressive aphasia Constipation CKD (chronic kidney disease) Hyperlipidemia Kidney disorder Diabetes Hypertension Family History Family History Father Hypertension Alcoholism Social History Social History Social History: Caffeine- coffee daily Smoking status: Never smoker Tobacco type: cigars Alcohol intake: unknown Alcohol use details: Beer Substance use: never Lack of Transportation: No Lack of Food: Never True Current Housing: I Have Housing Concerned About Future Housing: No Difficulty Paying Gas/Electric Bills: No Difficulty Paying for Meds: No Currently Unemployed: No Education: Don't Know Difficulty w/ Childcare or Family Care: No Living arrangements: alone Occupation/Education: retired 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 Gender identity (if verbalized by the patient): Male Spiritual care concerns: No Meds Home Medications and Allergies Home Medications ?Medication ?Instructions ?Recorded ?Confirmed ?Type acetaminophen 325 mg tablet 650 mg feeding tube Q4H NC N pain 02/23/25 03/19/25 History lactobacillus combination no.4 3 3,000 mmu cells PO HS 02/23/25 03/19/25 History billion cell capsule (Probiotic) melatonin 3 mg tablet 3 mg PO HS PRN sleep 5 03/19/25 History polyethylene glycol 3350 17 17 g feeding tube DAILY 03/19/25 History gram/dose oral powder (Miralax) sennosides 8.6 mg tablet (senna) 8.6 mg feeding tube B ID PRN 02/23/25 03/19/25 History constipation baclofen 10 mg tablet 5 mg (1/2 x 10 mg) feeding t ube 03/15/25 03/19/25 Rx Q8HR 30 days #45 tabs fluoxetine 20 mg tablet 20 mg feeding tube QPM 30 da ys #30 03/15/25 03/19/25 Rx tabs gabapentin 100 mg capsule 100 mg feeding tube TID PRN 03/15/25 03/19/25 Rx Anxiety #0 caps gabapentin 100 mg capsule 200 mg (2 x 100 mg) feeding tube 03/15/25 03/19/25 Rx TID 30 days #180 caps hydrocodone 5 mg-acetaminophen 325 1 tablet PO Q8H PRN pain #10 tabs 03/15/25 03/19/25 Rx mg tablet insulin lispro 100 unit/mL 4 - 8 unit subcut TID.ARISS I #3 mL 03/15/25 03/19/25 Rx subcutaneous solution (Humalog U-100 Insulin) ondansetron HCl 4 mg tablet 4 mg PO Q4H PRN nausea and 03/15/25 03/19/25 Rx vomiting #20 tabs pantoprazole 40 mg tablet,delayed 40 mg PO QAM 30 days #30 tabs 03/15/25 03/19/25 Rx release simethicone 80 mg chewable tablet 80 mg feeding tube Q ID #0 tabs 03/15/25 03/19/25 Rx albuterol sulfate 2.5 mg/3 mL 2.5 mg inhalation Q2H NC N 03/19/25 03/19/25 History (0.083 %) solution for nebulization shortness of breat h or wheezing Allergies Allergy/AdvReac Type Severity Reaction Status Date / Time No Known Allergies Allergy Verified 03/19/25 10:26 Vital Signs Vital Signs - 24 hr 03/18/25 22:45 03/18/25 23:12 03/18/25 23:15 Temperature 98.2 F Pulse Rate 82 72 69 Respiratory Rate 20 17 12 Blood Pressure 149/86 H Pulse Oximetry 97 98 97 Oxygen Delivery Room Air 03/18/25 23:16 03/18/25 23:30 03/18/25 23:31 Temperature Pulse Rate 74 68 75 Respiratory Rate 24 H 18 24 H Blood Pressure 139/80 139/80 Pulse Oximetry 98 98 97 Oxygen Delivery 03/18/25 23:43 03/18/25 23:45 03/19/25 00:16 Temperature Pulse Rate 78 75 71 Respiratory Rate 18 19 Blood Pressure 139/80 Pulse Oximetry 97 98 96 Oxygen Delivery 03/19/25 01:37 03/19/25 01:45 03/19/25 02:30 Temperature Pulse Rate 73 57 L 55 L Respiratory Rate 17 13 13 Blood Pressure Pulse Oximetry 99 96 95 Oxygen Delivery 03/19/25 02:31 03/19/25 02:45 03/19/25 03:00 Temperature Pulse Rate 55 L 55 L 53 L Respiratory Rate 13 13 13 Blood Pressure 128/76 Pulse Oximetry 95 95 96 Oxygen Delivery 03/19/25 03:01 03/19/25 03:15 03/19/25 03:31 Temperature Pulse Rate 55 L 71 56 L Respiratory Rate 13 11 L 13 Blood Pressure 130/77 117/78 Pulse Oximetry 95 96 96 Oxygen Delivery 03/19/25 04:53 03/19/25 05:01 03/19/25 05:31 Temperature Pulse Rate 70 54 L 53 L Respiratory Rate 15 12 13 Blood Pressure 121/81 150/77 H 139/77 Pulse Oximetry 93 96 97 Oxygen Delivery 03/19/25 06:01 03/19/25 06:15 03/19/25 07:31 Temperature Pulse Rate 55 L 62 61 Respiratory Rate 14 19 15 Blood Pressure 149/84 H 149/84 H 154/88 H Pulse Oximetry 100 98 100 Oxygen Delivery 03/19/25 08:31 03/19/25 08:55 03/19/25 10:15 Temperature 97.8 F Pulse Rate 71 86 57 L Respiratory Rate 19 20 14 Blood Pressure 171/98 H 127/76 155/69 H Pulse Oximetry 96 100 Oxygen Delivery Exam 2 Const: General: comfortable and no acute distress HENMT: Face/Nose/Sinus: Normal nares present Eyes: General: appearance normal, both eyes and all related structures Neck: Neck: supple Resp: Auscultation: clear to auscultation bilaterally Cardio: Rate: regular rate Rhythm: regular rhythm GI: Inspection: non-distended GI Palp: Yes Soft to palpation and No Tenderness to palpation present (GI) Auscultation: normal bowel sounds Urinary Catheter: Urinary Catheter: patent and draining Skin: General skin exam: normal color Neuro: Other: aphasia, Rt hemiparesis Extrem: General: normal to inspection Psych: Mental Status: mental status grossly normal Results Labs 03/18/25 23:01 03/18/25 23:01 Labs: Short CBC 03/18/25 Range/Units 23:01 WBC 8.8 (4.5-10.0) K/mm3 Hgb 9.8 L (14.0-18.0) g/dL Hct 32.1 L (42.0-52.0) % Plt Count 249 (150-375) k/mm3 BMP 03/18/25 23:01 Sodium 137 Potassium 4.3 Chloride 104 Carbon Dioxide 22 BUN 47 H Creatinine 2.27 H Glucose 173 H Calcium 9.3 Liver Function 03/18/25 Range/Units 23:01 Total Bilirubin 0.4 (0.2-1.3) mg/dL AST 32 (17-59) U/L ALT 30 (6-50) U/L Alkaline Phosphatase 159 H (38-126) U/L Albumin 3.8 (3.5-5.1) g/dL
[2025-03-19] MEDS: BACLOFEN 5 MG TABLET BY MOUTH ×2 (14:42→21:05)
[2025-03-19] MEDS: SIMETHICONE 80 MG TAB.CHEW BY MOUTH ×3 (14:42→21:04)
[2025-03-19] MEDS: PANTOPRAZOLE 40 MG TABLET PO (14:42)
[2025-03-19] MEDS: HYDROcodone/acetaminophen (*CRX) 5-325 MG TABLET 1 TAB PO (14:43)
[2025-03-19] MEDS: LACTULOSE 20 GM/30 ML UDC PO (14:43)
[2025-03-19] MEDS: ACIDOPHILUS/BULGARICUS CHEWABLE TABLET 1 TABLET PO (21:05)
[2025-03-20] MEDS: BACLOFEN 5 MG TABLET BY MOUTH ×2 (05:32→13:42)
[2025-03-20] MEDS: LINACLOTIDE 72 MCG CAPSULE PO (05:32)
[2025-03-20 06:00] VITALS: BP 130/64; PULSE 61; RESP 17; TEMP 36.2; O2SAT 99
[2025-03-20 06:27] LABS: Hematocrit 29.8 % (42.0-52.0); Hemoglobin 9.0 g/dL (14.0-18.0); Immature Granulocyte Percent A 1.4 % (0-0.5); Lymphocytes Absolute Auto 2.03 K/mm3 (0.9-3.2); Mean Corpuscular HGB Conc 30.2 g/dl (32-36); Mean Corpuscular Hemoglobin 26.8 pg (26-34); Mean Corpuscular Volume 88.7 fl (80-100); Nucleated Red Blood Cells Absolute Auto 0.000 K/mm3 (0.0-0.012); Nucleated Red Blood Cells Perc 0.0 % (0.0-0.2); Platelet Count Result 243 k/mm3 (150-375); Red Blood Count 3.36 M/mm3 (4.6-6.20); White Blood Count 6.5 K/mm3 (4.5-10.0)
[2025-03-20] MEDS: HYDROcodone/acetaminophen (*CRX) 5-325 MG TABLET 1 TAB PO (06:33)
[2025-03-20 06:56] LABS: Hemoglobin A1C 8.3 % (<5.7)
[2025-03-20 07:01] LABS: Alanine Aminotransferase 23 U/L (6-50); Albumin Level 3.3 g/dL (3.5-5.1); Alkaline Phosphatase 124 U/L (38-126); Anion Gap 5 mmol/L (4-12); Aspartate Amino Transferase 27 U/L (17-59); Bilirubin,Total 0.3 mg/dL (0.2-1.3); Blood Urea Nitrogen 29 mg/dL (9-20); Calcium 8.8 mg/dL (8.4-10.2); Carbon Dioxide 21 mmol/L (22-30); Chloride 105 mmol/L (98-107); Estimated CRCL calculation 45 ml/min; Estimated Glomerular Filt Rate 38; Glucose 167 mg/dL (65-110); Potassium 4.0 mmol/L (3.4-5.0); Sodium 131 mmol/L (137-145); Total Protein 6.6 g/dL (6.3-8.2)
[2025-03-20] MEDS: PANTOPRAZOLE 40 MG TABLET PO (09:10)
[2025-03-20] MEDS: SIMETHICONE 80 MG TAB.CHEW BY MOUTH ×3 (09:11→16:42)
[2025-03-20] MEDS: INSULIN ASPART (*BKC) 100 UNITS/ML SUB-Q (09:11)
--- NOTE | 2025-03-20 13:21 | PM.DS ---
DS: Admitting Diagnosis Discharge Date 03/20/2025 Admitting Diagnosis Fecal impaction DS: Discharge Diagnosis Discharge Diagnosis (1) Fecal impaction: Code(s): K56.41 - Fecal impaction Status: Acute (2) Stage 4 chronic kidney disease: Code(s): N18.4 - Chronic kidney disease, stage 4 (severe) Status: Chronic (3) Stercoral colitis: Code(s): K52.89 - Other specified noninfective gastroenteritis and colitis Status: Acute (4) Type 2 diabetes mellitus with hyperglycemia: Code(s): E11.65 - Type 2 diabetes mellitus with hyperglycemia Status: Chronic (5) CVA (cerebral vascular accident): Code(s): I63.9 - Cerebral infarction, unspecified Status: Acute DS: Summary Hospital Course Reason for hospitalization: Fecal impaction Hospital Course: The patient is a 70-year-old male with a complex medical history including stage 4 chronic kidney disease, type 2 diabetes mellitus, hypertension, hyperlipidemia, and a 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 He was admitted from a rehabilitation facility due to lower abdominal pain and was found to have a fecal impaction on imaging. On arrival, he was alert but limited in communication due to expressive aphasia, able to respond to questions with head nods. He denied other systemic symptoms. Examination revealed lower abdominal tenderness without guarding or peritoneal signs, and a G-tube was present for medication and nutritional supplementation. Initial management included continuation of his home bowel regimen (polyethylene glycol, senna), and a soap suds enema was attempted without success. GI was consulted and recommended escalation of therapy with lactulose and linaclotide (Linzess), as well as dietary fiber supplementation. The patient?s pain resolved following these interventions. Laboratory studies were notable for stable CKD (creatinine 2.27, BUN 47), mild anemia (Hgb 9.8), and hyperglycemia (glucose 173), with no evidence of infection or acute metabolic derangement. Imaging also revealed a 15 mm right lower lobe pulmonary nodule and mild interstitial opacities, but no acute pulmonary process. Throughout the admission, the patient remained hemodynamically stable, afebrile, and comfortable, with no recurrence of abdominal pain. His chronic conditions, including diabetes and CKD, were managed per protocol, and his home medications were continued with adjustments as needed. The patient?s neurological deficits remained at his new baseline following his recent stroke. He tolerated a regular diet after passing a swallow evaluation, and his G-tube was used as needed for medications. The hospital course was uncomplicated, with resolution of the acute fecal impaction and stabilization of his chronic comorbidities. Discussed the case with Gastroenterology who agrees with discharge stability at this time given the patient has had passage of bowel movements at this time without any abdominal pain/discomfort. Vitals and blood work remained stable. Plan for discharge to [facility] at this time. Time Spent with Patient Time attestation: Total time spent providing and/or coordinating discharge services: 34 Exam Const: General: comfortable and no acute distress HENMT: Face/Nose/Sinus: Normal nares present Mouth: Yes moist mucous membranes Eyes: General: appearance normal, both eyes and all related structures Sclera: sclerae normal Pupils: Equal, round and reactive pupils present EOM: EOMs intact bilaterally Neck: Neck: supple Carotids: no bruits Resp: Effort & Inspection: normal respiratory effort Auscultation: clear to auscultation bilaterally Cardio: Rate: regular rate Rhythm: regular rhythm GI: Inspection: non-distended Other: G-tube present in RUQ, surrounding skin WDL No tenderness to palpation, no guarding : General: Yes bladder normal to palpation Skin: General skin exam: normal color and no rashes or lesions noted Neuro: Cranial nerves: Yes Equal, round and reactive pupils present Sensory Exam: normal sensation Other: R hemiplegia & hemiparesis, residual from recent CVA. 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 Expressive aphasia Extrem: General: normal to inspection Psych: Mental Status: mental status grossly normal Affect: normal affect DS: Data Data Completed and Pending Labs on day of discharge: Labs from last 24 hours 03/20/25 03/20/25 03/20/25 11:38 07:46 06:12 WBC 6.5 RBC 3.36 L Hgb 9.0 L Hct 29.8 L MCV 88.7 MCH 26.8 MCHC 30.2 L RDW 15.4 H Plt Count 243 MPV 9.5 Immature Gran % (Auto) 1.4 H Neut % (Auto) 52.5 Lymph % (Auto) 31.0 [place] % (Auto) 10.4 H Eos % (Auto) 4.1 Baso % (Auto) 0.6 Lymph # (Auto) 2.03 [place] # (Auto) 0.7 H Eos # (Auto) 0.3 Baso # (Auto) 0.0 Abs Immat Gran (auto) 0.09 H Absolute Neuts (auto) 3.4 Absolute Nucleated RBC 0.000 Nucleated RBC % 0.0 Sodium 131 L Potassium 4.0 Chloride 105 Carbon Dioxide 21 L Anion Gap 5 BUN 29 H D Creatinine 1.79 H Estim Creat Clear Calc 45 Estimated GFR 38 L Glucose 167 H POC Capillary Glucose 150 H 212 H Hemoglobin A1c 8.3 H Calcium 8.8 Total Bilirubin 0.3 AST 27 ALT 23 Alkaline Phosphatase 124 Total Protein 6.6 Albumin 3.3 L 03/19/25 03/19/25 19:54 16:37 WBC RBC Hgb Hct MCV MCH MCHC RDW Plt Count MPV Immature Gran % (Auto) Neut % (Auto) Lymph % (Auto) [place] % (Auto) Eos % (Auto) Baso % (Auto) Lymph # (Auto) [place] # (Auto) Eos # (Auto) Baso # (Auto) Abs Immat Gran (auto) Absolute Neuts (auto) Absolute Nucleated RBC Nucleated RBC % Sodium Potassium Chloride Carbon Dioxide Anion Gap BUN Creatinine Estim Creat Clear Calc Estimated GFR Glucose POC Capillary Glucose 193 H 167 H Hemoglobin A1c Calcium Total Bilirubin AST ALT Alkaline Phosphatase Total Protein Albumin Discharge Plan Discharge Attending physician on discharge: Sadaf Valle Consulting providers: Indra Rodríguez; Madiha Negrete; Real Serra Discharging Clinician: Real Serra Anticipated Discharge Date/Time: 03/20/25 13:19 Patient Disposition: [place] Longterm/Asst Living Activity: as tolerated Diet: high fiber and tube feeding Discharge Instructions: Discharge disposition: [facility] Take medications as prescribed Monitor blood pressures Take caution while standing, rising, or moving Change positions slowly taking a break between each position change If you standing feel dizzy sit back down and take a break Encouraged to continue with yearly vaccinations Return to the emergency department if you develop sudden shortness of breath, chest pain, nausea, vomiting, upset stomach or intractable diarrhea Return to the emergency department if you develop fever greater than 101.5 Follow-up with the primary care physician within 1-2 weeks. It is suggested to obtain a chest CT in 1-3 months for a 15mm right lower lobe pulmonary nodule, which may be infection or primary bronchogenic carcinoma. Have your primary care physician set this up. Thank you for choosing [facility] for your healthcare needs Patient Instructions: Antibiotic Form Patient Language: Telugu Stand Alone Forms: General Discharge Information Follow-up/Referrals: Srinivasan Lucero MD [Primary Care Provider, Internal Medicine] Discharge Medications: Continued albuterol sulfate 2.5 mg /3 mL (0.083 %) solution for nebulization 2.5 mg inhalation Q2H PRN (Reason: shortness of breath or wheezing) acetaminophen 325 mg tablet 650 mg feeding tube Q4H PRN (Reason: pain) Probiotic 3 billion cell capsule 3,000 mmu cells PO HS Rx Instructions: administer with a meal melatonin 3 mg tablet 3 mg PO HS PRN (Reason: sleep) polyethylene glycol 3350 [Miralax] 17 gram/dose powder 17 g feeding tube DAILY sennosides [senna] 8.6 mg tablet 8.6 mg feeding tube BID PRN (Reason: constipation) hydrocodone-acetaminophen 5-325 mg tablet 1 tablet PO Q8H PRN (Reason: pain) Qty: 10 0RF insulin lispro [Humalog U-100 Insulin] 100 unit/mL Solution 4 - 8 unit subcut TID.ARISSI Qty: 3 0RF Protocol: Insulin Corrective High-Dose Condition: glucose < 70 mg/dl Dose/Route: Follow hypoglycemia order Condition: glucose 70-200 mg/dl Dose/Route: No additional insulin Condition: glucose 201-250 mg/dl Dose/Route: 4 units sub-Q Condition: glucose 251-300 mg/dl Dose/Route: 5 units sub-Q Condition: glucose 301-350 mg/dl Dose/Route: 6 units sub-Q Condition: glucose 351-400 mg/dl Dose/Route: 8 units sub-Q Condition: glucose > 400 mg/dl Dose/Route: Call Protocol Text: *No Correction Dose at Bedtime* baclofen 10 mg Tablet 5 mg feeding tube Q8HR 30 Days Qty: 45 0RF gabapentin 100 mg Capsule 200 mg feeding tube TID 30 Days Qty: 180 0RF gabapentin 100 mg Capsule 100 mg feeding tube TID PRN (Reason: Anxiety) Qty: 0 0RF pantoprazole 40 mg Tablet,Delayed Release (Dr/Ec) 40 mg PO QAM 30 Days Qty: 30 0RF simethicone 80 mg Tablet,Chewable 80 mg feeding tube QID Qty: 0 0RF ondansetron HCl 4 mg tablet 4 mg PO Q4H PRN (Reason: nausea and vomiting) Qty: 20 0RF fluoxetine 20 mg tablet 20 mg feeding tube QPM 30 Days Qty: 30 0RF Date of admission: 03/19/25 06:17 Primary Care Provider: Srinivasan Lucero Admitting Provider: Desiree Salcedo Attending physician on admission: Desiree Salcedo Condition: Stable Quality VTE Prophylaxis VTE prophylaxis: mechanical ordered and pharmacologic ordered
[2025-03-20 14:00] VITALS: BP 117/65; PULSE 67; RESP 16; TEMP 36.7; O2SAT 100
--- NOTE | 2025-03-20 15:49 | WPDGIPROGNO ---
Progress Note: A&P Assessment and Plan (1) Fecal impaction: Code(s): K56.41 - Fecal impaction Status: Acute Assessment and Plan: had BM today continue with bowel regimen, fiber and prevent constipation if possible no objections to discharge (2) Constipation: Code(s): K59.00 - Constipation, unspecified Status: Acute (3) Lower abdominal pain: Code(s): R10.30 - Lower abdominal pain, unspecified Status: Acute Assessment and Plan: resolved (4) CVA (cerebral vascular accident): Code(s): I63.9 - Cerebral infarction, unspecified Status: Acute (5) Expressive aphasia: Code(s): R47.01 - Aphasia Status: Acute Subjective Date/time seen: 03/20/25 15:49 Interval history: no pain, tolerating diet and had BM earlier today he is being discharged Review of Systems Review of Systems: All systems reviewed & are unremarkable except as noted in HPI and below Exam Const: General: comfortable and no acute distress HENMT: Face/Nose/Sinus: Normal nares present Eyes: General: appearance normal, both eyes and all related structures Neck: Neck: supple Resp: Auscultation: clear to auscultation bilaterally Cardio: Rate: regular rate Rhythm: regular rhythm GI: Inspection: non-distended GI Palp: Yes Soft to palpation and No Tenderness to palpation present (GI) Auscultation: normal bowel sounds Urinary Catheter: Urinary Catheter: patent and draining Skin: General skin exam: normal color Neuro: Other: aphasia, Rt hemiparesis Extrem: General: normal to inspection Psych: Mental Status: mental status grossly normal Objective Data Vital Signs Vital Signs: Vital Signs - 24 hr 03/19/25 19:51 03/19/25 20:00 03/20/25 06:00 Temperature 97.8 F 97.1 F L Pulse Rate 61 61 Respiratory Rate 17 17 Blood Pressure 116/67 130/64 Pulse Oximetry 99 99 Oxygen Delivery Room Air 03/20/25 14:00 Temperature 98.1 F Pulse Rate 67 Respiratory Rate 16 Blood Pressure 117/65 Pulse Oximetry 100 Oxygen Delivery Intake/Output Intake/Output: Intake & Output 03/17/25 03/18/25 03/19/25 03/20/25 23:59 23:59 23:59 23:59 Intake Total 2462 1730 Output Total 600 850 Balance 1862 880 Meds/Results Medications: Active Medications Generic Name Dose Route Start Last Admin Trade Name Freq PRN Reason Stop Dose Admin Acetaminophen 650 mg 03/19/25 13:41 Acetaminophen 325 Mg Tablet BY MOUTH Q4H PRN Pain 1-3 Hydrocodone Bitart/Acetaminophen 1 tab 03/19/25 12:44 03/20/25 06:33 Hydrocodone/Acetaminophen (*Crx) 5-325 Mg Tablet PO 1 tab Q8H PRN Administration Pain 4-6 Albuterol 2.5 mg 03/19/25 12:44 Albuterol Sulfate Neb 2.5 Mg/3 Ml Inh INHALATION Q2H PRN Shortness Of Breath Or Wheezing Baclofen 5 mg 03/19/25 14:00 03/20/25 13:42 Baclofen 5 Mg Tablet BY MOUTH 5 mg Q8HR JOSE Administration Dextrose 12.5 gm 03/19/25 10:22 Dextrose 50% 25 Gm/50 Ml Syringe IV PUSH PRN PRN Hypoglycemia Protocol Fluoxetine HCl 20 mg 03/19/25 18:00 03/19/25 17:08 Fluoxetine Hcl 20 Mg Capsule BY MOUTH 20 mg QPM JOSE Administration Glucagon 1 mg 03/19/25 10:22 Glucagon For Inj 1 Mg Vial IM PRN PRN Hypoglycemia Protocol Glucose 15 gm 03/19/25 10:22 Glucose Oral Gel 15 Gm Of Glucse In 37.5 Gm Tube PO PRN PRN Hypoglycemia Protocol Heparin Sodium (Porcine) 5,000 units 03/19/25 21:00 03/20/25 09:10 Heparin Sodium 5,000 Units/Ml Vial SUB-Q 5,000 units Q12HR JOSE Administration Dextrose 1,000 mls @ 100 mls/hr 03/19/25 10:22 Dextrose 5% 1,000 Ml IVPB PRN PRN Hypoglycemia Protocol Insulin Aspart 2 - 5 units 03/19/25 12:00 03/20/25 12:23 Insulin Aspart (*Bkc) 100 Units/Ml SUB-Q Not Given TIDWM JOSE Protocol Lactobacillus Acidophilus 1 tablet 03/19/25 21:00 03/19/25 21:05 Acidophilus/Bulgaricus Chewable Tablet PO 04/18/25 20:59 1 tablet HS JOSE Administration Linaclotide 72 mcg 03/20/25 06:30 03/20/25 05:32 Linaclotide 72 Mcg Capsule PO 72 mcg DAILY@0630 JOSE Administration Melatonin 3 mg 12/07/25 12:44 Melatonin 3 Mg Tablet PO HS PRN Sleep Ondansetron HCl 4 mg 03/19/25 10:14 Ondansetron Inj 4 Mg/2 Ml Vial IV PUSH Q6H PRN Nausea And Vomiting Ondansetron HCl 4 mg 03/19/25 12:44 Ondansetron Hcl Odt 4 Mg Tablet PO Q4H PRN Nausea And Vomiting Pantoprazole Sodium 40 mg 03/19/25 13:15 03/20/25 09:10 Pantoprazole 40 Mg Tablet PO 40 mg QAM JOSE Administration Polyethylene Glycol 17 gm 03/19/25 14:00 03/20/25 09:10 Polyethylene Glycol 3350 17 Gm Powd.Pack BY MOUTH 17 gm DAILY JOSE Administration Senna 8.6 mg 03/19/25 13:41 Sennosides 8.6 Mg Tablet BY MOUTH BID PRN Constipation Simethicone 80 mg 03/19/25 14:00 03/20/25 12:23 Simethicone 80 Mg Tab.Chew BY MOUTH 80 mg QID JOSE Administration Radiology Results: ITS Impressions Abdomen/Pelvis CT 03/19/25 08:58 IMPRESSION: 1. Stercoral colitis. 2. 15 mm right lower lobe pulmonary nodule, which may be infection or primary bronchogenic carcinoma. Noncontrast chest CT is recommended in 1-3 months. 3. Interstitial opacities in right middle lobe and right lower lobe, consistent with mild pulmonary edema versus chronic interstitial lung disease. 4. Small right pleural effusion. Labs Labs: Laboratory Results - last 24 hr 03/19/25 03/19/25 03/20/25 16:37 19:54 06:12 WBC 6.5 RBC 3.36 L Hgb 9.0 L Hct 29.8 L MCV 88.7 MCH 26.8 MCHC 30.2 L RDW 15.4 H Plt Count 243 MPV 9.5 Immature Gran % (Auto) 1.4 H Neut % (Auto) 52.5 Lymph % (Auto) 31.0 [place] % (Auto) 10.4 H Eos % (Auto) 4.1 Baso % (Auto) 0.6 Lymph # (Auto) 2.03 [place] # (Auto) 0.7 H Eos # (Auto) 0.3 Baso # (Auto) 0.0 Abs Immat Gran (auto) 0.09 H Absolute Neuts (auto) 3.4 Absolute Nucleated RBC 0.000 Nucleated RBC % 0.0 Sodium 131 L Potassium 4.0 Chloride 105 Carbon Dioxide 21 L Anion Gap 5 BUN 29 H D Creatinine 1.79 H Estim Creat Clear Calc 45 Estimated GFR 38 L Glucose 167 H POC Capillary Glucose 167 H 193 H Hemoglobin A1c 8.3 H Calcium 8.8 Total Bilirubin 0.3 AST 27 ALT 23 Alkaline Phosphatase 124 Total Protein 6.6 Albumin 3.3 L 03/20/25 03/20/25 07:46 11:38 WBC RBC Hgb Hct MCV MCH MCHC RDW Plt Count MPV Immature Gran % (Auto) Neut % (Auto) Lymph % (Auto) [place] % (Auto) Eos % (Auto) Baso % (Auto) Lymph # (Auto) [place] # (Auto) Eos # (Auto) Baso # (Auto) Abs Immat Gran (auto) Absolute Neuts (auto) Absolute Nucleated RBC Nucleated RBC % Sodium Potassium Chloride Carbon Dioxide Anion Gap BUN Creatinine Estim Creat Clear Calc Estimated GFR Glucose POC Capillary Glucose 212 H 150 H Hemoglobin A1c Calcium Total Bilirubin AST ALT Alkaline Phosphatase Total Protein Albumin
== END 2025-03-20 18:55 ==
LOC: ANHED 03-19 06:18 → ANH3MEDSUR 03-19 08:19
PROVIDERS: Registered Nurse; Admitting Provider General Practice; Emergency Provider Student in an Organized Health Care Education/Training Program; PCP Internal Medicine; Visit Provider Family Medicine
DX: K56.41 Fecal impaction (principal); K52.89 Other specified noninfective gastroenteritis and colitis; I63.9 Cerebral infarction, unspecified; R47.01 Aphasia; G81.91 Hemiplegia, unspecified affecting right dominant side; E11.65 Type 2 diabetes mellitus with hyperglycemia; R91.1 Solitary pulmonary nodule; N18.4 Chronic kidney disease, stage 4 (severe); E11.22 Type 2 diabetes mellitus with diabetic chronic kidney disease; I12.9 Hypertensive chronic kidney disease with stage 1 through stage 4 chronic kidney disease, or unspecified chronic kidney disease; E78.5 Hyperlipidemia, unspecified
CPT/HCPCS: 36415; 74176; 80053; 82948; 83036; 83605; 83690; 85025; 85610; 85730; 86140; 93005; 96361; 96374; 99285; A9270; G0378; J1171; J1644; J1815; J7030

== ENCOUNTER 2025-03-25 10:52 | Emergency (ER) | payer MEDICARE, SELFPAY ==
--- NOTE | ~2025-03-25 | CT_ITS ---
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 TECHNIQUE: CT scan of the chest, abdomen and pelvis was performed without contrast One or more of the following dose reduction techniques were used: automated exposure control, adjustment of the mA and/or kV according to patient size, use of iterative reconstruction technique. Unless otherwise stated, incidental findings do not require dedicated follow up imaging FINDINGS: CT chest: No significant coronary calcification is present ([id number]) LUNGS: No tracheomalacia. No bronchiectasis. Minimal emphysematous changes. Mild pulmonary fibrotic changes. Small basilar infiltrates. Small simple appearing right pleural effusion. Within the right lower lobe there is a nodular density measuring 1.2 x 1.3 cm. Punctate calcified splenic granulomas. HEART AND PERICARDIUM: Within normal limits. AORTA: Normal caliber aorta. MEDIASTINUM: Unremarkable. THYROID: The thyroid is unremarkable. CT abdomen: LIVER: Unremarkable, liver contours intact, no lesions. SPLEEN: Unremarkable, no splenomegaly. KIDNEYS: Right Kidney: Unremarkable. No calculi. No hydronephrosis. Left Kidney: Unremarkable. No calculi. No hydronephrosis ADRENAL GLANDS: Unremarkable. PANCREAS: GALLBLADDER/BILIARY: Unremarkable. No biliary dilatation. STOMACH AND ESOPHAGUS: Gastrostomy tube terminates in the stomach. BOWEL/MESENTERY: The rectum is dilated with moderate fecal content, the rectum measures 9 cm with pericolonic stranding within. The remaining large bowel demonstrates moderate fecal content with no gross colitis or diverticulitis. Appendix normal. Mesentery normal. No thickened or dilated loops of small bowel. RETROPERITONEUM: Unremarkable AORTA/VASCULATURE: Normal caliber aorta. FREE FLUID OR FREE AIR: None. CT pelvis: SOLID ORGANS/REPRODUCTIVE: Unremarkable. BLADDER: Circumferential thickening of the bladder wall noted. LYMPHADENOPATHY: No lymphadenopathy. OSSEOUS STRUCTURES: No sclerotic or lytic lesions. Moderate degenerative changes of the lumbar spine. OVERLYING SOFT TISSUES: Small fat-containing left inguinal hernia. IMPRESSION: 1. Probable bilateral bronchopneumonia superimposed on chronic lung disease. Right lung nodule concerning for neoplasm. PET CT is recommended 2. Fecal impaction with probable proctitis. 3. Incidental findings above Reviewed, dictated and finalized at location P. RATUS LINEMAN IMPRESSION: 1. Probable bilateral bronchopneumonia superimposed on chronic lung disease. Ri ght lung nodule concerning for neoplasm. PET CT is recommended 2. Fecal impaction with probable proctitis. 3. Incidental findings above
--- NOTE | ~2025-03-25 | XR_ITS ---
Examination: XR ankle RT min 3V, XR shoulder RT min 2V, XR hip RT 2V w AP pelvis, XR wrist RT min 3V, XR knee RT 3V, XR elbow RT min 3V Clinical History: pain status post fall Comparison: None Technique: 3 views right shoulder, 3 views right elbow, 3 views right wrist 2 views right hip with AP pelvis 3 views right knee, 4 views right ankle Findings/impression: Right shoulder: 1. No fracture or dislocation. 2. Moderate degenerative changes glenohumeral joint. Right elbow: 1. Avulsion fracture along medial humeral epicondyle versus osteophyte. 2. Otherwise no fracture or dislocation. Right wrist: 1. No acute fracture or dislocation right wrist. 2. Moderate degenerative changes radiocarpal joint, with probable chronic fracture along medial distal radius. Right hip with pelvis: 1. No fracture or dislocation right hip. 2. No pelvic fracture identified. Right knee: 1. Joint effusion. 2. No acute fracture or dislocation. 3. Moderate lateral compartment narrowing, with small marginal osteophytes. Right ankle: 1. No fracture or dislocation. 2. Moderate hindfoot degenerative changes. Reviewed, dictated and finalized at location R. C T TECH
--- NOTE | ~2025-03-25 | CT_ITS ---
CT HEAD NON-CONTRAST CT C-SPINE CT FACE Clinical History: head injury Comparison: None Technique: Unenhanced axial images skull base to vertex. Coronal, sagittal reformats. Axial images thoracic inlet to skull base. Sagittal and coronal reformats. CT images acquired with automatic exposure control for dose reduction DLP: 757. 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 Chronic white matter microvascular ischemic changes. Sulci, ventricles: Unremarkable. No intracerebral hemorrhage. No evidence acute territorial infarct. No mass effect, midline shift, intra-/extra-axial fluid collection. Bony calvarium intact. Visualized paranasal sinuses: Clear. Mastoid air cells: Clear. C-spine: No acute fracture. Grade 1 anterolisthesis C4 on 5, C5 on 6. Vertebral bodies normal height and alignment. No significant degenerative changes. Disc spaces maintained. Prevertebral soft tissues within normal limits. Visualized lung apices: Clear. Visualized thyroid: Unremarkable. No enlarged cervical nodes. CT face: No facial fractures. Left maxillary molar fracture, and periapical dental lucency/infections. IMPRESSION: HEAD: 1. No acute intracranial findings. C-SPINE: 1. No acute fracture. CT FACE: 1. No facial fracture. 2. Left maxillary molar fracture, and periapical dental lucency/infections. Reviewed, dictated and finalized at location R. [employer] IMPRESSION: HEAD: 1. No acute intracranial findings. C-SPINE: 1. No acute fracture. CT FACE: 1. No facial fracture. 2. Left maxillary molar fracture, and periapical dental lucency/infections.
[2025-03-25 10:55] VITALS: BP 151/76; PULSE 75; RESP 27; TEMP 36.8; O2SAT 100
--- OUTSIDE RECORDS SUMMARY | 2025-03-25 11:24 | XMS_ITS | Clinical Summary ---
Author Organization [facility] Address [address] [place] [phone] Phone Care Team Providers Care Filter Tip Inspector Name Role Phone Srinivasan Lucero MD Primary Care Provider [phone] Allergies No known active allergies Medications lisinopril-hydro chlorothiazide (ZESTORETIC) 10-12.5 mg tablet Take 1 Tab by mouth daily. Active Social History Tobacco Use Types Packs/Day Years Used Date Smoking Tobacco: Never Assessed Sex and Gender Information Value Date Recorded Sex Assigned at Not on file Legal Sex Male 2:41 AM CDT Gender Identity Not on file Sexual Orientation Not on file Last Filed Vital Signs Vital Sign Reading Time Taken Comments Blood Pressure 143/88 10/13/2013 2:44 AM CDT Pulse 81 10/13/2013 2:44 AM CDT Temperature 36.9 C (98.4 F) 10/13/2013 2:44 AM CDT Respiratory Rate 15 10/13/2013 2:44 AM CDT Oxygen Saturation 100% 10/13/2013 2:44 AM CDT Inhaled Oxygen Concentration - - Weight 113.4 kg (250 lb) 10/13/2013 2:44 AM CDT Height 193 cm (6' 4) 10/13/2013 2:44 AM CDT Body Mass Index 30.43 10/13/2013 2:44 AM CDT Plan of Treatment Health Maintenance Due Date Last Done Comments DTAP/TDAP/TD VACCINES (1 - Tdap) 1974 COLORECTAL SCREENING 01/05/2000 Colorectal Cancer Screening 01/05/2000 FIT-DNA Q 3 years 01/05/2000 FIT/FOBT Q 1 year 01/05/2000 Flex Sig/CT Colonography Q 5 years 01/05/2000 PNEUMOCOCCAL VACCINE 50+ YEARS (1 of 1 - PCV) 01/05/20 05 ZOSTER VACCINE (1 of 2) 2005 INFLUENZA VACCINE (#1) 2024 RSV VACCINE (60+ or ) (1 - 1-dose 75+ series) 2030 Insurance [facility] Care Teams Filter Tip Inspector Relationship Specialty Start Date End Date Srinivasan Lucero MD [address] [place] [address] PCP - General 04/03/15
--- OUTSIDE RECORDS SUMMARY | 2025-03-25 11:24 | XMS_ITS | Encounter Summary ---
Author Organization [facility] Address [address] [place] [address] Care Team Providers Care Cooler Servicer Name Role Phone Srinivasan Lucero MD Primary Care Provider [phone] Reason for Visit * Reason Onset Date Comments Lab Results 10/30/2022 Encounter Details Date Type Department Care Team (Late st Contact Info) Description 10/30/2022 Results Notification [facility] [address] [place] [address] Maverick Back MD [address] [place] [address] Lab Results Social History Tobacco Use Types Packs/Day Years Used Date Smoking Tobacco: Never Assessed Sex and Gender Information Value Date Recorded Sex Assigned at Male 05/13/2024 9:03 AM FOUNDATION ENGINEER Legal Sex Male 11:19 PM FOUNDATION ENGINEER Gender Identity Not on file Sexual Orientation Not on file documented as of this encounter Progress Notes * Maverick Back MD - 10/30/2022 5:26 PM CDT Recommendations: Serum creatinine fluctuating within the baseline of 2.3-2.5 and has improved from the recent 2.6 wewill continue to monitor As a 10/20/2022: Glucose 116; BUN 44; serum creatinine 2.44; estimated GFR 28; sodium 139; potassium 4.6; bicarbonate 23; calcium 9 point documented in this encounter Plan of Treatment Not on file documented as of this encounter Visit Diagnoses Not on filedocumented in this encounter Additional Health Concerns Infection Onset Date Last Indicated Resolved Time Respiratory Rule Out 01/24/2025 01/25/2025 025 3:42 PM CDT documented as of this encounter Care Teams Cooler Servicer Relationship Specialty Start Date End Date Srinivasan Lucero MD [address] [place] [address] PCP - General INTERNAL MEDICINE 06/11/22 documented as of this encounter
--- OUTSIDE RECORDS SUMMARY | 2025-03-25 11:24 | XMS_ITS | Encounter Summary ---
Author Organization [facility] Address [address] [place] [address] Care Team Providers Care Farm Machine Operator Name Role Phone Srinivasan Lucero MD Primary Care Provider [phone] Encounter Details Date Type Department Care Team (Late st Contact Info) Description 10/15/2022 Abstract [facility] [address] [place] [id number] Maverick Back MD [facility] [place] [address] Social History Tobacco Use Types Packs/Day Years Used Date Smoking Tobacco: Never Assessed Sex and Gender Information Value Date Recorded Sex Assigned at Male 05/13/2024 9:03 AM SHIP MANAGER Legal Sex Male 11:19 PM SHIP MANAGER Gender Identity Not on file Sexual Orientation Not on file COVID-19 Exposure Response Date Recorded In the last 10 days, have yo u been in contact with someone who was confirmed or suspected to have Coronavirus/COVID-19? No / Unsure 09/22/2022 2:45 PM CDT documented as of this encounter Plan of Treatment Not on file documented as of this encounter Visit Diagnoses Not on filedocumented in this encounter Additional Health Concerns Infection Onset Date Last Indicated Resolved Time Respiratory Rule Out 01/24/2025 01/25/2025 025 3:42 PM CDT documented as of this encounter Care Teams Farm Machine Operator Relationship Specialty Start Date End Date Srinivasan Lucero MD [address] [place] [address] PCP - General INTERNAL MEDICINE 06/11/22 documented as of this encounter
--- OUTSIDE RECORDS SUMMARY | 2025-03-25 11:24 | XMS_ITS | Clinical Summary ---
Author Organization [facility] Address [address] [place] [address] Care Team Providers Care Resource Engineer Name Role Phone Srinivasan Lucero MD Primary Care Provider [phone] Allergies No known active allergies Medications Coenzyme Q10 (CO Q 10) 10 MG Cap Take 1 tablet by mouth daily. Active Apple Jimbo Vn-Grn Tea-Bit Or-Cr (APPLE CIDER VINEGAR PLUS) Tab Take 1 tablet by mouth 2 (two) times daily. Active aspirin 81 MG chewable tablet 1 tablet (81 mg total) by Per G Tube route daily. 90 tablet 5 Active atorvastatin (LIPITOR) 80 MG tablet 1 tablet (80 mg total) by Per G Tube route nightly at bedtime. 90 tablet 5 Active carvedilol (COREG) 6.25 MG tablet 1 tablet (6.25 mg total) by Per G Tube route 2 (two) times daily. 60 tablet 5 Active hydrALAZINE (APRESOLINE) 50 MG tablet 1 tablet (50 mg total) by Per G Tube route every 12 (twelve) hours. 90 tablet 5 Active amLODIPine (KATERZIA) 1 mg/mL Suspension oral suspension 5 mLs (5 mg total) by Tube route daily. 150 mL 5 Active Sennosides (SENNA) 8.8 MG/5ML 5 mLs (8.8 mg total) by Tube route nightly at bedtime. 105 mL 5 Active FLUoxetine (PROZAC) 20 MG/5ML solution 5 mLs (20 mg total) by Per G Tube route daily. 150 mL 5 Active insulin glargine (LANTUS) 100 UNIT/ML injection (VIAL) Inject 15 Units into the skin nightly at bedtime. 4.2 mL 5 Active insulin lispro (HUMALOG/ADMELO G) 100 UNIT/ML injection (VIAL) Inject 0-15 Units into the skin every 6 (six) hours. From sliding scale insulin subcut med order set - For TDI greater than or equal to 90 units Blood Glucose: (Less than 70: Initiate Hypoglycemia Standing Orders) (70 - 149, administer 0 units) (150 - 199, administer 4 units) (200 - 249, administer 8 units) (250 - 299, administer 10 units) (300 - 349, administer 12 units) (Greater than 349, administer 15 units and Call Physician) 10 mL 5 Active sevelamer carbonate (RENVELA) 0.8 g packetIndicatio ns:Chronic Kidney Disease Stage 4 1 packet (800 mg total) by Per G Tube route 3 (three) times daily with meals. Indications: Chronic Kidney Disease Stage 4 90 packet 5 Active TF dialysis formula-1.8 Kcal/mL (NEPRO) Liquid 120-356 mL/hr by Per G Tube route 4 (four) times daily. 1000 mL 5 5 Active famotidine (PEPCID) 20 MG tablet 1 tablet (20 mg total) by Per G Tube route daily. 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 Acute stroke due to occlusion of left carotid ar kimberli 01/16/2025 Acute renal failure, unspecified acute renal huong lure type 09/15/2022 Stage 3b chronic kidney disease 09/15/2022 Microalbuminuria 09/15/2022 Hypertension, essential 09/15/2022 Diabetes mellitus without complication 3 Vitamin D deficiency, unspecified 09/15/2022 Encounters Date Type Department Care Team Description 01/16/2025 11:59 PM CDT Anesthesia Event [facility] [place] [employer] Member [address] [place] [address] Fidel-AffWong gusman, HAIR BOILER 01/16/2025 6:52 PM CDT Anesthesia Event [facility] [place] [employer] Member [address] [place] [address] Jose Michel MD Hymel, CatherineYENNY 01/16/2025 6:30 PM CDT - 02/08/2025 1:54 PM CDT Hospital Encounter [facility] [address] [place] [address] Armand Nichols MD Mok, Huram, MD Basit, Abdul, MD Bharat, Anchit, MD Oduche, Amir S, MD Tarar, MD Danny Cárdenas Madhusudhan, MD Yaseen, Maryam, MD Discharge Disposition: Swing Bed 01/16/2025 5:02 PM CDT - 01/16/2025 6:10 PM CDT Emergency [facility] [address] [place] [address] Uvaldo Smart MD Stroke Alert Discharge Disposition: Transfer to Acute Care Hospital 01/16/2025 Travel from Last 3 Months Social History Tobacco Use Types Packs/Day Years Used Date Smoking Tobacco: Never Smokeless Tobacco: Never Tobacco Cessation:Counseling Given: Not Answered Humiliation, Afraid, Rape, a nd Kick questionnaire Answer Date Recorded Within the last year, have y ou been afraid of your partner or ex-partner? Patient unable to answer 01/23/2025 Within the last year, have y ou been humiliated or emotionally abused in other ways by your partner or ex-partner? Patient unable to answer 01/23/2025 Within the last year, have y ou been kicked, hit, slapped, or otherwise physically hurt by your partner or ex-partner? Patient unable to answer 01/23/2025 Within the last year, have y ou been raped or forced to have any kind of sexual activity by your partner or ex-partner? Patient unable to answer 01/23/2025 Social Connection and Isolation Panel Answer Date Recorded In a typical week, how many times do you talk on the phone with family, friends, or neighbors? Patient unable to answer 01/23/2025 How often do you get togethe r with friends or relatives? Patient unable to answer 01/23/2025 How often do you attend chur or rastafari services? Patient unable to answer 01/23/2025 Do you belong to any clubs o r organizations such as bahai groups, unions, fraternal or athletic groups, or school groups? Patient unable to answer 01/23/2025 How often do you attend meet ings of the clubs or organizations you belong to? Patient unable to answer 01/23/2025 Are you , , di vorced, , never , or living with a partner? Patient unable to answer 01/23/2025 AUDIT-C Answer Date Recorded Q1: How often do you have a drink containing alcohol? Patient unable to answer 01/23/2025 Q2: How many drinks containi ng alcohol do you have on a typical day when you are drinking? Patient unable to answer Q3: How often do you have si x or more drinks on one occasion? Patient unable to answer 01/23/2025 Overall Financial Resource Strain (CARDIA) Answe r Date Recorded How hard is it for you to pa y for the very basics like food, housing, medical care, and heating? Patient unable to answer 01/23/2025 [facility] - Occupational Stress Questionnaire Answer Date Recorded Do you feel stress - tense, restless, nervous, or anxious, or unable to sleep at night because your mind is troubled all the time - these days? Patient unable to answer 01/23/2025 Exercise Vital Sign Answer Date Recorde d On average, how many days pe r week do you engage in moderate to strenuous exercise (like a brisk walk)? Patient unable to answer 01/23/2025 On average, how many minutes do you engage in exercise at this level? Patient unable to answer 01/23/2025 Hunger Vital Sign Answer Date Recorded Within the past 12 months, y ou worried that your food would run out before you got the money to buy more. Patient unable to answer 01/23/2025 Within the past 12 months, t he food you bought just didn't last and you didn't have money to get more. Patient unable to answer 01/23/2025 PRAPARE - Transportation Answer Date Re corded In the past 12 months, has l ack of transportation kept you from medical appointments or from getting medications? Patient unable to answer 01/23/2025 In the past 12 months, has l ack of transportation kept you from meetings, work, or from getting things needed for daily living? Patient unable to answer 01/23/2025 Housing Stability Vital Sign Answer Darren e Recorded In the last 12 months, was t here a time when you were not able to pay the mortgage or rent on time? Patient unable to answer 01/23/2025 In the past 12 months, how m any times have you moved where you were living? 0 01/23/2025 At any time in the past 12 m ont, were you homeless or living in a penitentiary (including now)? Patient unable to answer 01/23/2025 [id number] Health Literacy Answer Date Recor ded How often do you need to hav e someone help you when you read instructions, pamphlets, or other written material from your doctor or pharmacy? Patient declines to respond 01/23/2025 [employer] Answer Date Recorded In the past 12 months has th e electric, gas, oil, or water company threatened to shut off services in your home? 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 Gender Identity Not on file Sexual Orientation Not on file Last Filed Vital Signs Vital Sign Reading Time Taken Comments Blood Pressure 150/83 02/08/2025 8:01 AM CDT Pulse 79 02/08/2025 8:01 AM CDT Temperature 36.5 C (97.7 F) 02/08/2025 8:01 AM CDT Respiratory Rate 18 02/08/2025 8:01 AM CDT Oxygen Saturation 95% 02/08/2025 8:01 AM CDT Inhaled Oxygen Concentration - - Weight 95.6 kg (210 lb 12.2 oz) 02/03/2025 2:55 AM CDT Height 193 cm (6' 3.98) 01/21/2025 4:00 AM CDT Body Mass Index 25.67 01/21/2025 4:00 AM CDT Plan of Treatment Health Maintenance Due Date Last Done Comments Colorectal Cancer Screening Colonoscopy (10 Years) 1955 Kidney Health Evaluation 1955 Diabetes: Retinopathy Eye Exam 1973 Hepatitis C 1973 Pneumococcal Vaccine: 50+ Years (1 of 2 - PCV) 1974 Zoster Vaccines (1 of 2) 2005 RSV Immunization or 60+ Years (1 - Risk 60-74 years 1-dose series) 2015 Annual Medicare Wellness Visit 01/05/2020 DTaP, Tdap and Td Vaccines ( 2 - Td or Tdap) 11/05/2023 11/04/2013 COVID-19 Vaccine (4 - 2024-2 6 season) 2024 05/03/2021, 07/10/2020, 06/19/2020 Influenza Adult (#1) 2025 Hemoglobin A1C 07/17/2025 01/16/2025 Lipid Panel 01/16/2026 01/16/2025 Hepatitis A Vaccines Aged Out No long er eligible based on patient's age to complete this topic Meningococcal B Vaccine Aged Out No l onger eligible based on patient's age to complete this topic Meningococcal Vaccine Aged Out No kavon fredy eligible based on patient's age to complete this topic RSV Immunizations Under 20 Months Aged Out No longer eligible b ased on patient's age to complete this topic Procedures Procedure Name Priority Date/Time Associated Diagnosis Comments POCT GLUCOSE - DOCKED DEVICE Routine 02/08/2025 11:20 AM CDT TROPONIN, QUANT STAT 02/08/2025 7:57 AM CDT POCT GLUCOSE - DOCKED DEVICE Routine 02/08/2025 6:31 AM CDT CBC, AUTO, NO DIFF Routine 02/08/2025 3: 57 AM CDT RENAL FUNCTION PANEL Routine 02/08/2025 3:57 AM CDT MAGNESIUM Routine 02/08/2025 3:57 AM CDT POCT GLUCOSE - DOCKED DEVICE Routine 02/07/2025 11:50 PM CDT POCT GLUCOSE - DOCKED DEVICE Routine 02/07/2025 4:06 PM CDT XR CHEST PORTABLE STAT 02/07/2025 2:2 7 PM CDT ECG 12-LEAD STAT 02/07/2025 2:18 PM CDT POCT GLUCOSE - DOCKED DEVICE Routine 02/07/2025 10:53 AM CDT POCT GLUCOSE - DOCKED DEVICE Routine 02/07/2025 6:01 AM CDT HC CBC W/O DIFF Routine 02/07/2025 4:13 AM CDT HC RENAL PANEL Routine 02/07/2025 4:13 AM CDT HC MAGNESIUM Routine 02/07/2025 4:13 AM CDT POCT GLUCOSE - DOCKED DEVICE Routine 02/06/2025 11:47 PM CDT POCT GLUCOSE - DOCKED DEVICE Routine 02/06/2025 3:28 PM CDT POCT GLUCOSE - DOCKED DEVICE Routine 02/06/2025 12:17 PM CDT HC RENAL PANEL Routine 02/06/2025 4:11 AM CDT HEMOGLOBIN AND HEMATOCRIT Routine 02/06/2025 4:11 AM CDT HC MAGNESIUM Routine 02/06/2025 4:11 AM CDT POCT GLUCOSE - DOCKED DEVICE Routine 02/06/2025 1:03 AM CDT POCT GLUCOSE - DOCKED DEVICE Routine 02/05/2025 4:56 PM CDT HC RENAL PANEL STAT 02/05/2025 1:11 PM CDT HC CBC AUTO W/AUTO DIFF STAT 02/05/2025 1:11 PM CDT HC MAGNESIUM Routine 02/05/2025 1:11 PM CDT POCT GLUCOSE - DOCKED DEVICE Routine 02/05/2025 12:08 PM CDT XR CHEST PORTABLE STAT 02/05/2025 8:1 7 AM CDT POCT GLUCOSE - DOCKED DEVICE Routine 02/05/2025 6:35 AM CDT POCT GLUCOSE - DOCKED DEVICE Routine 02/05/2025 1:09 AM CDT POCT GLUCOSE - DOCKED DEVICE Routine 02/04/2025 10:58 PM CDT POCT GLUCOSE - DOCKED DEVICE Routine 02/04/2025 8:06 PM CDT POCT GLUCOSE - DOCKED DEVICE Routine 02/04/2025 6:22 PM CDT POCT GLUCOSE - DOCKED DEVICE Routine 02/04/2025 5:33 PM CDT POCT GLUCOSE - DOCKED DEVICE Routine 02/04/2025 11:50 AM CDT HEMOGLOBIN AND HEMATOCRIT Routine 02/04/2025 4:32 AM CDT HC MAGNESIUM Routine 02/04/2025 4:32 AM CDT HC RENAL PANEL Routine 02/04/2025 4:32 AM CDT POCT GLUCOSE - DOCKED DEVICE Routine 02/03/2025 11:45 PM CDT POCT GLUCOSE - DOCKED DEVICE Routine 02/03/2025 4:50 PM CDT POCT GLUCOSE - DOCKED DEVICE Routine 02/03/2025 11:41 AM CDT POCT GLUCOSE - DOCKED DEVICE Routine 02/03/2025 6:07 AM CDT HC CBC W/O DIFF Routine 02/03/2025 4:34 AM CDT HC MAGNESIUM Routine 02/03/2025 4:34 AM CDT HC RENAL PANEL Routine 02/03/2025 4:34 AM CDT POCT GLUCOSE - DOCKED DEVICE Routine 02/02/2025 11:15 PM CDT POCT GLUCOSE - DOCKED DEVICE Routine 02/02/2025 4:06 PM CDT MAGNESIUM TIMED 02/02/2025 3:48 PM CDT RENAL FUNCTION PANEL TIMED 02/02/2025 3:48 PM CDT POCT GLUCOSE - DOCKED DEVICE Routine 02/02/2025 10:35 AM CDT POCT GLUCOSE - DOCKED DEVICE Routine 02/02/2025 6:12 AM CDT CBC, AUTO, NO DIFF Routine 02/02/2025 4: 33 AM CDT MAGNESIUM Routine 02/02/2025 4:33 AM CDT RENAL FUNCTION PANEL Routine 02/02/2025 4:33 AM CDT POCT GLUCOSE - DOCKED DEVICE Routine 02/02/2025 12:08 AM CDT POCT GLUCOSE - DOCKED DEVICE Routine 02/01/2025 4:25 PM CDT SODIUM, SERUM TIMED 02/01/2025 12:02 PM CDT POCT GLUCOSE - DOCKED DEVICE Routine 02/01/2025 10:43 AM CDT POCT GLUCOSE - DOCKED DEVICE Routine 02/01/2025 5:37 AM CDT MAGNESIUM Routine 02/01/2025 3:37 AM CDT RENAL FUNCTION PANEL Routine 02/01/2025 3:37 AM CDT POCT GLUCOSE - DOCKED DEVICE Routine 02/01/2025 12:06 AM CDT POCT GLUCOSE - DOCKED DEVICE Routine 01/31/2025 11:40 PM CDT SODIUM, SERUM TIMED 01/31/2025 10:48 PM CDT POCT GLUCOSE - DOCKED DEVICE Routine 01/31/2025 9:13 PM CDT POCT GLUCOSE - DOCKED DEVICE Routine 01/31/2025 5:14 PM CDT SODIUM, SERUM TIMED 01/31/2025 11:44 AM CDT POCT GLUCOSE - DOCKED DEVICE Routine 01/31/2025 11:25 AM CDT POCT GLUCOSE - DOCKED DEVICE Routine 01/31/2025 5:06 AM CDT MAGNESIUM Routine 01/31/2025 3:59 AM CDT RENAL FUNCTION PANEL Routine 01/31/2025 3:59 AM CDT POCT GLUCOSE - DOCKED DEVICE Routine 01/31/2025 12:05 AM CDT POCT GLUCOSE - DOCKED DEVICE Routine 01/30/2025 9:58 PM CDT HC SODIUM TIMED 01/30/2025 7:49 PM CDT POCT GLUCOSE - DOCKED DEVICE Routine 01/30/2025 5:20 PM CDT POCT GLUCOSE - DOCKED DEVICE Routine 01/30/2025 12:15 PM CDT HC SODIUM TIMED 01/30/2025 11:47 AM CDT POCT GLUCOSE - DOCKED DEVICE Routine 01/30/2025 5:51 AM CDT HC MAGNESIUM Routine 01/30/2025 3:39 AM CDT HC RENAL PANEL Routine 01/30/2025 3:39 AM CDT POCT GLUCOSE - DOCKED DEVICE Routine 01/30/2025 12:48 AM CDT POCT GLUCOSE - DOCKED DEVICE Routine 01/29/2025 8:09 PM CDT HC SODIUM TIMED 01/29/2025 7:37 PM CDT POCT GLUCOSE - DOCKED DEVICE Routine 01/29/2025 5:05 PM CDT HC SODIUM TIMED 01/29/2025 11:52 AM CDT POCT GLUCOSE - DOCKED DEVICE Routine 01/29/2025 11:09 AM CDT POCT GLUCOSE - DOCKED DEVICE Routine 01/29/2025 6:08 AM CDT HC MAGNESIUM Routine 01/29/2025 3:36 AM CDT HC RENAL PANEL Routine 01/29/2025 3:36 AM CDT POCT GLUCOSE - DOCKED DEVICE Routine 01/29/2025 12:19 AM CDT POCT GLUCOSE - DOCKED DEVICE Routine 01/28/2025 10:17 PM CDT HC SODIUM TIMED 01/28/2025 8:03 PM CDT POCT GLUCOSE - DOCKED DEVICE Routine 01/28/2025 5:06 PM CDT HC SODIUM TIMED 01/28/2025 11:45 AM CDT POCT GLUCOSE - DOCKED DEVICE Routine 01/28/2025 11:31 AM CDT POCT GLUCOSE - DOCKED DEVICE Routine 01/28/2025 5:51 AM CDT HC MAGNESIUM Routine 01/28/2025 3:46 AM CDT HC RENAL PANEL Routine 01/28/2025 3:46 AM CDT POCT GLUCOSE - DOCKED DEVICE Routine 01/27/2025 10:31 PM CDT HC SODIUM TIMED 01/27/2025 8:20 PM CDT POCT GLUCOSE - DOCKED DEVICE Routine 01/27/2025 4:30 PM CDT HC SODIUM TIMED 01/27/2025 12:07 PM CDT POCT GLUCOSE - DOCKED DEVICE Routine 01/27/2025 11:38 AM CDT POCT GLUCOSE - DOCKED DEVICE Routine 01/27/2025 6:07 AM CDT HC MAGNESIUM Routine 01/27/2025 3:25 AM CDT HC RENAL PANEL Routine 01/27/2025 3:25 AM CDT POCT GLUCOSE - DOCKED DEVICE Routine 01/27/2025 1:28 AM CDT HC SODIUM TIMED 01/26/2025 7:26 PM CDT HC BLOOD GAS PH PO2 &/OR PCO2 STAT 01/26/2025 4:48 PM CDT POCT GLUCOSE - DOCKED DEVICE Routine 01/26/2025 4:39 PM CDT IR PERC CLOVIS CATH PLCMNT Today 01/26/2025 2:47 PM CDT HC SODIUM TIMED 01/26/2025 12:34 PM CDT HC INFECT AGENT DETECT OPTICAL Nurse Collected Priority 01/26/2025 12:00 PM CDT HC INFECT AGENT DETECT OPTICAL Nurse Collected Priority 01/26/2025 12:00 PM CDT HC CREATININE OTH SOURCE Nurse Collected Priority 01/26/2025 12:00 PM CDT HC SODIUM URINE Nurse Collected Priority 01/26/2025 12:00 PM CDT HC URINALYSIS AUTO W/MICRO Nurse Collected Priority 01/26/2025 12:00 PM CDT HC CULTURE URINE W/COLONY CT Nurse Collected Priority 01/26/2025 11:54 AM CDT POCT GLUCOSE - DOCKED DEVICE Routine 01/26/2025 11:44 AM CDT POCT GLUCOSE - DOCKED DEVICE Routine 01/26/2025 6:37 AM CDT HC VANCOMYCIN Routine 01/26/2025 3:50 AM CDT HC PROTHROMBIN TIME (PT) Routine 01/26/2025 3:50 AM CDT HC CBC AUTO W/AUTO DIFF Routine 01/26/2025 3:50 AM CDT HC MAGNESIUM Routine 01/26/2025 3:50 AM CDT HC RENAL PANEL Routine 01/26/2025 3:50 AM CDT POCT GLUCOSE - DOCKED DEVICE Routine 01/26/2025 12:58 AM CDT C AURIS,PCR,AXILLA/GROIN ,NARES Routine 01/25/2025 10:30 PM CDT HC SODIUM TIMED 01/25/2025 8:58 PM CDT POCT GLUCOSE - DOCKED DEVICE Routine 01/25/2025 4:20 PM CDT HC SODIUM TIMED 01/25/2025 3:57 PM CDT RESPIRATORY PCR PANEL 2 Nurse Collected Priority 01/25/2025 2:30 PM CDT POCT GLUCOSE - DOCKED DEVICE Routine 01/25/2025 11:19 AM CDT POCT GLUCOSE - DOCKED DEVICE Routine 01/25/2025 9:01 AM CDT POCT GLUCOSE - DOCKED DEVICE Routine 01/25/2025 4:51 AM CDT HC CBC AUTO W/AUTO DIFF Routine 01/25/2025 3:49 AM CDT HC MAGNESIUM Routine 01/25/2025 3:49 AM CDT HC RENAL PANEL Routine 01/25/2025 3:49 AM CDT POCT GLUCOSE - DOCKED DEVICE Routine 01/25/2025 12:35 AM CDT XR ABD UPRIGHT STAT 01/24/2025 9:55 PM CDT XR ABD UPRIGHT STAT 01/24/2025 8:28 PM CDT HC SODIUM TIMED 01/24/2025 7:27 PM CDT POCT GLUCOSE - DOCKED DEVICE Routine 01/24/2025 6:29 PM CDT HC BLOOD CULTURE TIMED 01/24/2025 4:24 PM CDT HC BLOOD CULTURE TIMED 01/24/2025 4:24 PM CDT US RETROPERITONEAL COMP Today 01/24/2025 1:19 PM CDT POCT GLUCOSE - DOCKED DEVICE Routine 01/24/2025 12:31 PM CDT HC SODIUM TIMED 01/24/2025 11:23 AM CDT POCT GLUCOSE - DOCKED DEVICE Routine 01/24/2025 6:41 AM CDT EEG SLEEP DEPRIVED Routine 01/24/2025 4: 51 AM CDT HC VANCOMYCIN TIMED 01/24/2025 4:25 AM CDT HC CBC AUTO W/AUTO DIFF Routine 01/24/2025 4:25 AM CDT HC MAGNESIUM Routine 01/24/2025 4:25 AM CDT HC RENAL PANEL Routine 01/24/2025 4:25 AM CDT POCT GLUCOSE - DOCKED DEVICE Routine 01/24/2025 12:32 AM CDT HC SODIUM TIMED 01/23/2025 7:31 PM CDT POCT GLUCOSE - DOCKED DEVICE Routine 01/23/2025 3:[address] HEAD WO CON Today 01/23/2025 12:04 PM CDT POCT GLUCOSE - DOCKED DEVICE Routine 01/23/2025 11:37 AM CDT HC VANCOMYCIN TIMED 01/23/2025 11:30 AM CDT HC SODIUM TIMED 01/23/2025 11:30 AM CDT HC BASIC METABOLIC PANEL TIMED 01/23/2025 9:28 AM CDT POCT GLUCOSE - DOCKED DEVICE Routine 01/23/2025 5:44 AM CDT HC CBC AUTO W/AUTO DIFF Routine 01/23/2025 3:20 AM CDT HC MAGNESIUM Routine 01/23/2025 3:20 AM CDT HC RENAL PANEL Routine 01/23/2025 3:20 AM CDT POCT GLUCOSE - DOCKED DEVICE Routine 01/22/2025 11:53 PM CDT HC SODIUM TIMED 01/22/2025 9:45 PM CDT POCT GLUCOSE - DOCKED DEVICE Routine 01/22/2025 4:36 PM CDT HC CULTURE URINE W/COLONY CT Nurse Collected Priority 01/22/2025 2:34 PM CDT HC URINALYSIS AUTO W/MICRO Nurse Collected Priority 01/22/2025 2:34 PM CDT XR CHEST PORTABLE STAT 01/22/2025 2:[address] HEAD WO CON STAT 01/22/2025 1:47 PM CDT HC BLOOD CULTURE Routine 01/22/2025 1:28 PM CDT HC TROPONIN QN STAT 01/22/2025 1:28 PM CDT PROCALCITONIN (PCT) STAT 01/22/2025 1 :28 PM CDT LACTIC ACID W REFLEX (SEPSIS) STAT 01/22/2025 1:28 PM CDT HC SODIUM TIMED 01/22/2025 12:08 PM CDT POCT GLUCOSE - DOCKED DEVICE Routine 01/22/2025 11:55 AM CDT POCT GLUCOSE - DOCKED DEVICE Routine 01/22/2025 8:36 AM CDT POCT GLUCOSE - DOCKED DEVICE Routine 01/22/2025 4:32 AM CDT HC MAGNESIUM Routine 01/22/2025 4:25 AM CDT HC RENAL PANEL Routine 01/22/2025 4:25 AM CDT POCT GLUCOSE - DOCKED DEVICE Routine 01/21/2025 11:25 PM CDT HC SODIUM TIMED 01/21/2025 6:08 PM CDT POCT GLUCOSE - DOCKED DEVICE Routine 01/21/2025 5:57 PM CDT POCT GLUCOSE - DOCKED DEVICE Routine 01/21/2025 12:50 PM CDT HC SODIUM TIMED 01/21/2025 12:00 PM CDT POCT GLUCOSE - DOCKED DEVICE Routine 01/21/2025 9:24 AM CDT POCT GLUCOSE - DOCKED DEVICE Routine 01/21/2025 4:48 AM CDT HC CBC AUTO W/AUTO DIFF Routine 01/21/2025 3:27 AM CDT HC MAGNESIUM Routine 01/21/2025 3:27 AM CDT HC RENAL PANEL Routine 01/21/2025 3:27 AM CDT HC SODIUM TIMED 01/21/2025 12:00 AM CDT POCT GLUCOSE - DOCKED DEVICE Routine 01/20/2025 10:42 PM CDT HC SODIUM TIMED 01/20/2025 8:13 PM CDT POCT GLUCOSE - DOCKED DEVICE Routine 01/20/2025 4:23 PM CDT HC SODIUM TIMED 01/20/2025 4:23 PM CDT HC SODIUM TIMED 01/20/2025 2:12 PM CDT HC SODIUM TIMED 01/20/2025 11:25 AM CDT POCT GLUCOSE - DOCKED DEVICE Routine 01/20/2025 10:46 AM CDT HC SODIUM TIMED 01/20/2025 7:47 AM CDT POCT GLUCOSE - DOCKED DEVICE Routine 01/20/2025 5:20 AM CDT HC CBC AUTO W/AUTO DIFF Routine 01/20/2025 3:24 AM CDT HC MAGNESIUM Routine 01/20/2025 3:24 AM CDT HC RENAL PANEL Routine 01/20/2025 3:24 AM CDT HC SODIUM TIMED 01/20/2025 12:07 AM CDT POCT GLUCOSE - DOCKED DEVICE Routine 01/19/2025 10:55 PM CDT HC SODIUM TIMED 01/19/2025 8:14 PM CDT HC SODIUM TIMED 01/19/2025 3:34 PM CDT POCT GLUCOSE - DOCKED DEVICE Routine 01/19/2025 3:32 PM CDT POCT GLUCOSE - DOCKED DEVICE Routine 01/19/2025 11:53 AM CDT HC SODIUM TIMED 01/19/2025 11:53 AM CDT POCT GLUCOSE - DOCKED DEVICE Routine 01/19/2025 11:20 AM CDT HC SODIUM Routine 01/19/2025 7:30 AM CDT POCT GLUCOSE - DOCKED DEVICE Routine 01/19/2025 5:45 AM CDT HC CBC W/O DIFF Routine 01/19/2025 3:27 AM CDT HC MAGNESIUM Routine 01/19/2025 3:27 AM CDT HC RENAL PANEL Routine 01/19/2025 3:27 AM CDT HC SODIUM TIMED 01/19/2025 12:00 AM CDT POCT GLUCOSE - DOCKED DEVICE Routine 01/18/2025 11:57 PM CDT HC SODIUM TIMED 01/18/2025 8:02 PM CDT XR ABD UPRIGHT STAT 01/18/2025 4:50 PM CDT HC SODIUM STAT 01/18/2025 4:00 PM CDT POCT GLUCOSE - DOCKED DEVICE Routine 01/18/2025 3:57 PM CDT HC SODIUM Routine 01/18/2025 1:15 PM CDT POCT GLUCOSE - DOCKED DEVICE Routine 01/18/2025 10:38 AM CDT POCT GLUCOSE - DOCKED DEVICE Routine 01/18/2025 7:01 AM CDT HC CBC W/O DIFF Routine 01/18/2025 3:55 AM CDT HC MAGNESIUM Routine 01/18/2025 3:55 AM CDT HC RENAL PANEL Routine 01/18/2025 3:55 AM CDT POCT GLUCOSE - DOCKED DEVICE Routine 01/18/2025 12:06 AM CDT MRI BRAIN WO STROKE FAST PROTOCOL VIOLA 01/17/2025 11:43 PM CDT POCT GLUCOSE - DOCKED DEVICE Routine 01/17/2025 5:11 PM CDT XR CHEST PORTABLE STAT 01/17/2025 4:2 0 PM CDT ECG 12-LEAD Routine 01/17/2025 1:24 PM CDT POCT GLUCOSE - DOCKED DEVICE Routine 01/17/2025 11:05 AM CDT USV ART DUPLEX LOW RT VIOLA 01/17/2025 10:48 AM CDT USE ECHOCARDIOGRAM W CON Routine 01/17/2025 10:43 AM CDT POCT GLUCOSE - DOCKED DEVICE Routine 01/17/2025 5:13 AM CDT HC CBC W/O DIFF Routine 01/17/2025 3:50 AM CDT HC MAGNESIUM Routine 01/17/2025 3:50 AM CDT HC RENAL PANEL Routine 01/17/2025 3:50 AM CDT XR CHEST PORTABLE STAT 01/17/2025 3:3 5 AM CDT POCT GLUCOSE - DOCKED DEVICE Routine 01/17/2025 2:50 AM CDT XR CHEST PORTABLE VIOLA 01/17/2025 1:3 9 AM CDT GASTRIC PH Nurse Collected Priority 01/17/2025 1:06 AM CDT POCT GLUCOSE - DOCKED DEVICE Routine 01/16/2025 11:04 PM CDT HC MRSA AMP Nurse Collected Priority 01/16/2025 10:34 PM CDT HC GLYCOSYLATED HGB Routine 01/16/2025 10:34 PM CDT HC LIPID PANEL Routine 01/16/2025 10:34 PM CDT HC PROTHROMBIN TIME (PT) Routine 01/16/2025 10:34 PM CDT HC CBC AUTO W/AUTO DIFF Routine 01/16/2025 10:34 PM CDT HC CALCIUM IONIZED Routine 01/16/2025 10:34 PM CDT HC LIVER (HEPATIC) PANEL Routine 01/16/2025 10:34 PM CDT HC THYROID STIMULATING HORM Routine 01/16/2025 10:34 PM CDT HC PHOSPHORUS Routine 01/16/2025 10:34 PM CDT HC LACTATE/LACTIC ACID Routine 10:34 PM CDT HC MAGNESIUM Routine 01/16/2025 10:34 PM CDT HC TROPONIN QN Routine 01/16/2025 10:34 PM CDT HC BASIC METABOLIC PANEL Routine 01/16/2025 10:34 PM CDT POCT GLUCOSE - DOCKED DEVICE Routine 01/16/2025 9:34 PM CDT ECG 12-LEAD Routine 01/16/2025 9:17 PM CDT ECG 12-LEAD Routine 01/16/2025 9:15 PM CDT XA NV DIAG CEREBRAL DARIEN Today 01/16/2025 8:46 PM CDT ART LINE PLACEMENT Routine 01/16/2025 7: 02 PM CDT XR CHEST PORTABLE STAT 01/16/2025 5:5 1 PM CDT HC TROPONIN QN STAT 01/16/2025 5:07 PM CDT HC COMPREHENSIVE METABOL PANEL STAT 01/16/2025 5:07 PM CDT HC PROTHROMBIN TIME (PT) STAT 01/16/2025 5:07 PM CDT HC CBC AUTO W/AUTO DIFF STAT 01/16/2025 5:07 PM CDT CRITICAL CARE Routine 01/16/2025 4:58 PM CDT ECG 12-LEAD Routine 01/16/2025 4:57 PM CDT CTA HEAD+NECK STAT 01/16/2025 4:[address] HEAD WO CON STAT 01/16/2025 4:54 PM CDT from Last 3 Months Results * (ABNORMAL) POCT glucose (02/08/2025 11:20 AM CDT) Only the most recent of103 resultswithin the time period is included. GLUCOSE POC 235(H) 70 - 109 02/08/2025 11:41 AM CDT [facility] 02/08/2025 11:2 0 AM CDT us Lillian Goel MD POCT ORDERABLES - DEVICE Final Result Performing Organization Address [facility]/ZIP Co de Phone Number [facility] [address] [place] [address], [place] [phone] * TROPONIN, QUANT (02/08/2025 7:57 AM CDT) Only the most recent of4 resultswithin the time period is included. [facility] TROPONIN I HIGH SENSITIVITY 10 0 - 78 ng/L 02/08/2025 8:29 AM CDT [facility] 02/08/2025 7:57 AM CDT us Lillian Goel MD LABORATORY Final Result Performing Organization Address [facility] de Phone Number [facility] [address] [place] [address], [place] [phone] * (ABNORMAL) RENAL FUNCTION PANEL (02/08/2025 3:57 AM CDT) Only the most recent of24 resultswithin the time period is included. Pathologist [facility] SODIUM S/P/B 147(H) 136 - 145 MMOL/L 02/08/2025 5:22 AM CDT [facility] POTASSIUM S/P/B 4.3 3.5 - 5.1 MMOL/L 02/08/2025 5:22 AM CDT [facility] CHLORIDE S/P/B 117(H) 97 - 115 MMOL/L 02/08/2025 5:22 AM CDT [facility] CO2 23.3 21.0 - 32.0 MMOL/L 02/08/2025 5:22 AM CDT [facility] GLUCOSE 138(H) 74 - 106 MG/DL 02/08/2025 5:22 AM CDT [facility] BUN 69(H) 7 - 18 MG/DL 02/08/2025 5:22 AM CDT [facility] CREATININE S/P/B 2.75(H) 0.70 - 1.30 MG/DL 02/08/2025 5:22 AM CDT [facility] CALCIUM S/P/B 9.6 8.5 - 10.1 MG/DL 02/08/2025 5:22 AM CDT [facility] ALBUMIN S/P/B 2.1(L) 3.4 - 5.0 G/DL 02/08/2025 5:22 AM CDT [facility] PHOSPHORUS 4.0 2.5 - 4.9 MG/DL 02/08/2025 5:22 AM CDT [facility] ANION GAP 6.7 2.0 - 10.0 MMOL/L 02/08/2025 5:22 AM CDT [facility] OSMOLALITY (CALC) 326 MOSM/KG 025 5:22 AM T [facility] Comment:REFERENCE RANGE NOT ESTABLISHED GFR ESTIMATE 24(L) >90 ML/MIN/1. 73 M2 02/08/2025 5:22 AM CDT [facility] GFR NOTES GFR REFERENCE S: 02/08/2025 5:22 AM T [facility] Comment: THE ESTIMATED GFR IS CALCULATED USING THE 2020 CKD-EPI EQUATION. THE FOLLOWING CATEGORIES FOR GRADING RENAL FUNCTION ARE RECOMMENDED BY THE INTERNATIONAL SOCIETY OF NEPHROLOGY (KDIGO 2012 CLINICAL PRACTICE GUIDELINE). G1,NORMAL OR HIGH: >89 ml/min/1.73 m2 G2,MILDLY DECREASED: 60-89 ml/min/1.73 m2 G3A,MILDLY TO MODERATELY DECREASED: 45-59 ml/min/1.73 m2 G3B,MODERATELY TO SEVERELY DECREASED: 30-44 ml/min/1.73 m2 G4,SEVERELY DECREASED: 15-29 ml/min/1.73 m2 G5,KIDNEY FAILURE: <15 ml/min/1.73 m2 02/08/2025 3:57 AM CDT Jennifer Delgado MD LABORATORY Final Result [facility] [address] [place] [address], [id number] * (ABNORMAL) CBC, AUTO, NO DIFF (02/08/2025 3:57 AM CDT) Only the most recent of7 resultswithin the time period is included. WBC 11.60(H) 4.00 - 10.80 x10'3/uL 02/08/2025 4:26 AM CDT [facility] RBC 3.56(L) 4.50 - 6.10 x10'6/uL 02/08/2025 4:26 AM CDT [facility] HGB 9.7(L) 13.0 - 18.0 G/DL 02/08/2025 4:26 AM CDT [facility] HCT 30.7(L) 37.0 - 52.0 % 02/08/2025 4:26 AM CDT [facility] MCV 86.2 78.0 - 100.0 FL 02/08/2025 4:26 AM CDT [facility] MCH 27.2 27.0 - 31.0 PG 02/08/2025 4:26 AM CDT [facility] MCHC 31.6(L) 33.0 - 36.0 G/DL 02/08/2025 4:26 AM CDT [facility] RDW 13.7 11.5 - 14.5 % 02/08/2025 4:26 AM CDT [facility] PLT 313 150 - 350 x10'3/uL 02/08/2025 4:26 AM CDT [facility] MPV 12.1(H) 7.4 - 10.4 FL 02/08/2025 4:26 AM CDT [facility] 02/08/2025 3:57 AM CDT Jennifer Delgado MD LABORATORY Final Result Performing Organization Address City/[facility]/ZIP Co de Phone Number [facility] [address] [place] [address], [place] [phone] * (ABNORMAL) MAGNESIUM (02/08/2025 3:57 AM CDT) Only the most recent of25 resultswithin the time period is included. MAGNESIUM 2.8(H) 1.6 - 2.6 MG/DL 02/08/2025 5:22 AM CDT [facility] 02/08/2025 3:57 AM CDT us Shahbaz Ferreira MD LABORATORY Final Result Performing Organization Address [facility] Co de Phone Number [facility] [address] [place] [address], [place] [phone] * XR CHEST PORTABLE (02/07/2025 2:27 PM CDT) Only the most recent of7 resultswithin the time period is included. Anatomical Region Laterality Modality Chest Radiographic Kaylen ging 02/07/2025 2:46 PM CDT Impressions 02/07/2025 2:47 PM CDT IMPRESSION: Persistent right basilar atelectasis or consolidation Ordered By: LILLIAN GOEL Interpreted By: Bonifacio Rich MD, 02/07/2025 2:46 PM Narrative 02/07/2025 2:47 PM CDT [facility] [address] [place], [place] [address] SINGLE VIEW OF THE CHEST Clinical history: Chest pain Comparison: February 05, 2025 A single view of the chest demonstrates the cardiac silhouette to be normal in size and appears stable. The pulmonary vessels are normally distributed. Mild right basilar atelectasis or consolidation is unchanged in the interval. Left lung is clear Procedure Note Bonifacio Rich MD - 02/07/[address] [address] SINGLE VIEW OF THE CHEST Clinical history: Chest pain Comparison: February 05, 2025 A single view of the chest demonstrates the cardiac silhouette to benormal in size and appears stable. The pulmonary vessels are normallydistributed. Mild right basilar atelectasis or consolidation is unchangedin the interval. Left lung is clear IMPRESSION: Persistent right basilar atelectasis or consolidation Ordered By: LILLIAN GOEL Interpreted By: Bonifacio Rich MD, 02/07/2025 2:46 PM Lillian Goel MD GENERAL IMAGING Final Result * ECG 12 lead (02/07/2025 2:18 PM CDT) Only the most recent of5 resultswithin the time period is included. 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1955 Requested By: LILLIAN GOEL Order Number: [id number] Reading MD: Lesia Joy Measurements Intervals [place] Rate: 78 P: 59 DC: 185 QRS: 26 QRSD: 82 T: 73 QT: 393 QTc: 448 Interpretive Statements SINUS RHYTHM NONSPECIFIC T-WAVE ABNORMALITY Procedure Note Lesia Joy MD - 02/07/[address] [address] Test Date: 2025-02-07 Pat Name: ZAC VALENZUELA Department: 1 Room: 806AA 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 HGB 9.7(L) 13.0 - 18.0 G/DL 02/06/2025 4:34 AM CDT [facility] HCT 31.6(L) 37.0 - 52.0 % 02/06/2025 4:34 AM CDT [facility] 02/06/2025 4:11 AM CDT Jennifer Delgado MD LABORATORY Final Result Performing Organization Address City/[facility]/ZIP Co de Phone Number [facility] [address] [place] [address], [phone] * (ABNORMAL) CBC W/DIFF AUTOMATED (02/05/2025 1:11 PM CDT) Only the most recent of9 resultswithin the time period is included. WBC 13.00(H) 4.00 - 10.80 x10'3/uL 02/05/2025 1:27 PM CDT [facility] RBC 3.83(L) 4.50 - 6.10 x10'6/uL 02/05/2025 1:27 PM CDT [facility] HGB 10.5(L) 13.0 - 18.0 G/DL 02/05/2025 1:27 PM CDT [facility] HCT 32.9(L) 37.0 - 52.0 % 02/05/2025 1:27 PM CDT [facility] MCV 85.9 78.0 - 100.0 FL 02/05/2025 1:27 PM CDT [facility] MCH 27.4 27.0 - 31.0 PG 02/05/2025 1:27 PM CDT [facility] MCHC 31.9(L) 33.0 - 36.0 G/DL 02/05/2025 1:27 PM CDT [facility] RDW 13.7 11.5 - 14.5 % 02/05/2025 1:27 PM CDT [facility] PLT 307 150 - 350 x10'3/uL 02/05/2025 1:27 PM CDT [facility] MPV 12.7(H) 7.4 - 10.4 FL 02/05/2025 1:27 PM CDT [facility] DIFFERENTIAL TYPE AUTOMATED DIFFERENTIAL 02/05/2025 1:27 PM CDT [facility] SEG NEUTROPHILS 71.2 % 1:27 PM CDT [facility] LYMPHOCYTES 14.1 % 02/05/2025 1:27 PM CDT [facility] MONOCYTES 10.5 % 02/05/2025 1:27 PM CDT [facility] EOSINOPHILS 2.0 % 02/05/2025 1:27 PM CDT [facility] BASOPHILS 0.5 % 02/05/2025 1:27 PM CDT [facility] IMMATURE GRANS % 1.7 % 02/06/20 1:27 PM CDT [facility] ABS. NEUTROPHILS 9.27(H) 1.60 - 8.30 x10'3/uL 02/05/2025 1:27 PM CDT [facility] ABS. LYMPHOCYTES 1.83 0.80 - 4.70 x10'3/uL 02/05/2025 1:27 PM CDT [facility] ABS. MONOCYTES 1.36 0.00 - 1.50 x10'3/uL 02/05/2025 1:27 PM CDT [facility] ABS. EOSINOPHILS 0.26 0.00 - 0.40 x10'3/uL 02/05/2025 1:27 PM CDT [facility] ABS. BASOPHILS 0.06 0.00 - 0.20 x10'3/uL 02/05/2025 1:27 PM CDT [facility] ABS. IMMATURE GRANULOCYTES 0.22(H) 0.00 - 0.03 x10'3/uL 02/05/2025 1:27 PM CDT [facility] ABS. NUCLEATED RBC'S 0.00 0.00 - 0.01 x10'3/uL 02/05/2025 1:27 PM CDT [facility] NRBC % 0.0 % 02/05/2025 1:27 PM CDT [facility] 02/05/2025 1:11 PM CDT Jennifer Delgado MD LABORATORY Final Result [facility] [address] [place] [address], [phone] * SODIUM, SERUM (02/01/2025 12:02 PM CDT) Only the most recent of38 resultswithin the time period is included. SODIUM S/P/B 141 136 - 145 MMOL/L 02/01/2025 12:36 PM CDT [facility] 02/01/2025 12:0 2 PM CDT Shahbaz Ferreira MD LABORATORY Final Result [facility] [address] [place] [address], [place] [phone] * (ABNORMAL) ARTERIAL BLOOD GAS (01/26/2025 4:48 PM CDT) PH ARTERIAL 7.46(H) 7.35 - 7.45 01/26/2025 4:55 PM CDT [facility] PCO2 31.0(L) 35.0 - 45.0 MMHG 01/26/2025 4:55 PM CDT [facility] PO2 77.0(L) 83.0 - 108.0 MMHG 01/26/2025 4:55 PM CDT [facility] TOTAL CO2 ARTERIAL 23.0 19.0 - 24.0 MMOL/L 01/26/2025 4:55 PM CDT [facility] BASE DEFICIT 0.9 0.0 - 3.0 MMOL/L 01/26/2025 4:55 PM CDT [facility] O2 Saturation 96 % 01/26/2025 4:55 PM CDT [facility] BICARB ARTERIAL 22.0 21.0 - 28.0 MMOL/L 01/26/2025 4:55 PM CDT [facility] KERRIE TEST NEGATIVE 01/26/2025 4:48 PM CDT [facility] OXYGEN STATUS 3L 01/26/2025 4:48 PM CDT [facility] DRAW SITE ARTERIAL RT RADIAL 01/26/2025 4:48 PM CDT [facility] 01/26/2025 4:48 PM CDT Chencho Magallon MD LABORATORY Final Result [facility] [address] [place] [address], [id number] * IR PERC CLOVIS CATH PLCMNT (01/26/2025 2:47 PM CDT) Anatomical Region Laterality Modality Abdomen Interventional R adiology 01/26/2025 2:37 PM CDT Impressions 01/26/2025 4:56 PM CDT Impression: Successful fluoroscopically guided percutaneous gastrostomy tube placement. Tube may be flushed intermittently with saline and/or placed to intermittent gravity drainage. If there are no apparent complications, use of the gastrostomy tube may begin the morning following the procedure. Ordered By: CHENCHO MAGALLON Interpreted By: Guicho Allred MD, 01/26/2025 2:37 PM Narrative 01/26/2025 4:56 PM [address]T [address] [address] Procedure: Fluoroscopically guided percutaneous gastrostomy Pre op diagnosis/indication: Stroke, dysphagia Post Op Diagnosis: same Radiologist: Chalino Anesthesia: Local - 1% buffered Lidocaine Conscious sedation: Administered and monitored by a qualified interventional radiology nurse under supervision of the interventional radiologist. There was continuous monitoring of vital signs including pulse oximetry, end-tidal CO2, and EKG. Total intraservice or [id number] sedation time: 9 minutes.. Technique : The patient was given barium via nasogastric tube on the day prior to the procedure to opacify the colon. Preliminary ultrasound was performed and the left liver margin was marked. Permanent ultrasound image was recorded. The epigastric region was prepped and draped in sterile fashion. Timeout was performed. The patient was given 1 mg of glucagon IV. Following this the stomach was insufflated with air via the indwelling NG tube. Under fluoroscopy suitable site was marked over the stomach clear of the liver and colon. Following the administration local anesthetic, 3 gastric anchor retention sutures were placed under fluoroscopic guidance, anchoring the anterior gastric wall to the anterior abdominal wall. At the time of placement of each suture, intragastric location was confirmed with aspiration of air and injection of contrast. Between the anchor sutures additional local anesthetic was administered. A 19 gauge needle was then advanced under fluoroscopic guidance into the stomach. Intragastric location was confirmed by aspiration of air followed by injection of contrast. An Amplatz wire was then advanced into the stomach. The tract was dilated and peel-away sheath placed through which a 18 Swazi balloon-tip gastrostomy tube was placed without difficulty. The balloon was inflated with 18 cc of very dilute contrast and the tube was secured in place. Intragastric location was confirmed with contrast injection. Permanent fluoroscopic images were recorded. Sterile dressing was applied. Fluoroscopy: 0.7 min; 10.5 mGy (Ka.r) Complications: none Estimated Blood Loss: <20 ml Specimens removed: none Procedure Note Guicho Allred MD - 01/26/2025 [place] [address] Procedure: Fluoroscopically guided percutaneous gastrostomy Pre op diagnosis/indication: Stroke, dysphagia Post Op Diagnosis: same Radiologist: Chalino Anesthesia: Local - 1% buffered Lidocaine Conscious sedation: Administered and monitored by a qualifiedinterventional radiology nurse under supervision of the interventionalradiologist. There was continuous monitoring of vital signs includingpulse oximetry, end-tidal CO2, and EKG. Total intraservice or [id number] time: 9 minutes.. Technique : The patient was given barium via nasogastric tube on the day prior to theprocedure to opacify the colon. Preliminary ultrasound was performed and the left liver margin was marked.Permanent ultrasound image was recorded. The epigastric region was prepped and draped in sterile fashion. Timeout was performed. The patient was given 1 mg of glucagon IV. Following this the stomach wasinsufflated with air via the indwelling NG tube. Under fluoroscopysuitable site was marked over the stomach clear of the liver and colon.Following the administration local anesthetic, 3 gastric anchor retentionsutures were placed under fluoroscopic guidance, anchoring the anteriorgastric wall to the anterior abdominal wall. At the time of placement ofeach suture, intragastric location was confirmed with aspiration of airand injection of contrast. Between the anchor sutures additional localanesthetic was administered. A 19 gauge needle was then advanced underfluoroscopic guidance into the stomach. Intragastric location wasconfirmed by aspiration of air followed by injection of contrast. AnAmplatz wire was then advanced into the stomach. The tract was dilated andpeel-away sheath placed through which a 18 Swazi balloon-tip gastrostomytube was placed without difficulty. The balloon was inflated with 18 cc ofvery dilute contrast and the tube was secured in place. Intragastriclocation was confirmed with contrast injection. Permanent fluoroscopicimages were recorded. Sterile dressing was applied. Fluoroscopy: 0.7 min; 10.5 mGy (Ka.r) Complications: none Estimated Blood Loss: <20 ml Specimens removed: none Impression: Successful fluoroscopically guided percutaneous gastrostomytube placement. Tube may be flushed intermittently with saline and/orplaced to intermittent gravity drainage. If there are no apparentcomplications, use of the gastrostomy tube may begin the morning followingthe procedure. Ordered By: CHENCHO MAGALLON Interpreted By: Guicho Allred MD, 01/26/2025 2:37 PM Chencho Magallon MD INTERVENTIONAL RADIOL OGY Final Result * STREP PNEUMO AG URINE (01/26/2025 12:00 PM CDT) S. PNEUMONIAE URINARY AG NEGATIVE NEGATIVE 01/26/2025 1:23 PM CDT [facility] Comment: PRESUMPTIVE NEGATIVE FOR PNEUMOCOCCAL PNEUMONIA, SUGGESTING NO CURRENT OR RECENT PNEUMOCOCCAL INFECTION. INFECTION DUE TO STREPTOCOCCUS PNEUMONIA CANNOT BE RULED OUT SINCE THE ANTIGEN PRESENT IN THE SAMPLE MAY BELOW THE DETECTION LIMIT OF THE TEST. SPECIMEN TYPE URINE CLEAN CATCH 01/26/2025 11:54 AM CDT [facility] URINE SPECIMEN OBTAINED BY CLEAN CATCH PROCEDURE / Unknown 01/26/2025 12:[address] us [address]e [address] NP MICROBIOLOGY - GENERAL ORDER RICH Final Result [facility] [address] [place] [address], [id number] * SODIUM URINE RANDOM (01/26/2025 12:00 PM CDT) NA RANDOM (U) 57 MMOL/L 01/26/2025 12:32 PM CDT [facility] Comment:REFERENCE RANGE NOT ESTABLISHED URINE SPECIMEN / Unknown 01/26/2025 12:00 PM CDT us Parker Limon MD URINE ORDERABLES Final Result Performing Organization Address [facility]/ZIP Co de Phone Number [facility] [address] [place] [address], [id number] * CREATININE URINE RANDOM (01/26/2025 12:00 PM CDT) CREATININE (U) 66.8 MG/DL 01/26/2025 12:32 PM CDT [facility] Comment:REFERENCE RANGE NOT ESTABLISHED URINE SPECIMEN / Unknown 01/26/2025 12:00 PM CDT us Parker Limon MD URINE ORDERABLES Final Result Performing Organization Address [facility] Co de Phone Number [facility] [address] [place] [address], [place] [phone] * LEGIONELLA AG URINE (01/26/2025 12:00 PM CDT) LEGIONELLA ANTIGEN (URINE) NEGATIVE NEGATIVE 01/26/2025 1:23 PM CDT [facility] Comment: PRESUMPTIVE NEGATIVE FOR L. PNEUMOPHILA SEROGROUP 1 ANTIGEN IN URINE, SUGGESTING NO RECENT OR CURRENT INFECTION. INFECTION DUE TO LEGIONELLA CANNOT BE RULED OUT SINCE OTHER SEROGROUPS AND SPECIES MAY CAUSE DISEASE, ANTIGEN MAY NOT BE PRESENT IN URINE IN EARLY INFECTION, AND THE LEVEL OF ANTIIGNE PRESENT IN THE URINE MAY BE BELOW THE DETECTION LIMIT OF THE TEST. URINE SPECIMEN / Unknown 01/26/2025 12:[address] us [address]e [address] NP MICROBIOLOGY - GENERAL ORDER RICH Final Result [facility] [address] [place] [address], [place] [phone] * (ABNORMAL) URINALYSIS (01/26/2025 12:00 PM CDT) Only the most recent of2 resultswithin the time period is included. COLOR (U) LIGHT YELLOW 01/26/2025 12:16 PM CDT [facility] TRANSPARENCY CLEAR 01/26/2025 12:16 PM CDT [facility] SPECIFIC GRAVITY (U) 1.015 1.002 - 1.035 01/26/2025 12:16 PM CDT [facility] U PH 5.5 5 - 8 01/26/2025 12:16 PM CDT [facility] PROTEIN RANDOM (U) 30(A) NEGATIVE 01/26/2025 12:16 PM CDT [facility] GLUCOSE (U) NEGATIVE NEGATIVE MG/DL 01/26/2025 12:16 PM CDT [facility] KETONES MG/DL (U) NEGATIVE NEGATIVE 01/26/2025 12:16 PM CDT [facility] BILIRUBIN (U) NEGATIVE NEGATIVE 01/26/2025 12:16 PM CDT [facility] BLOOD (U) 1+(A) NEGATIVE 01/26/2025 12:16 PM CDT [facility] NITRITES NEGATIVE NEGATIVE 01/26/2025 12:16 PM CDT [facility] UROBILINOGEN NORMAL 0 - 1 EU/DL 01/26/2025 12:16 PM CDT [facility] LEUKOCYTES (U) NEGATIVE NEGATIVE 01/26/2025 12:16 PM CDT [facility] RBC/HPF 1 0 - 3 /HPF 01/26/2025 12:16 PM CDT [facility] WBC/HPF 1 0 - 6 /HPF 01/26/2025 12:16 PM CDT [facility] BACTERIA (U) NONE /HPF 01/26/2025 12:16 PM CDT [facility] SQUAMOUS EPITHELIALS <1 01/26/2025 12:16 PM CDT [facility] AMORPHOUS SEDIMENT PRESENT 01/26/2025 12:16 PM CDT [facility] URINE SPECIMEN OBTAINED BY CLEAN CATCH PROCEDURE / Unknown 01/26/2025 12:00 PM CDT us Parker Limon MD URINE ORDERABLES Final Result Performing Organization Address [facility] de Phone Number [facility] [address] [place] [address], [phone] * CULTURE, URINE (01/26/2025 11:54 AM CDT) Only the most recent of2 resultswithin the time period is included. SPEC DESCRIPTION URINE CLEAN CATCH 01/26/2025 11:54 AM CDT [facility] SPECIAL REQUESTS NO SPECIAL REQUEST 01/26/2025 11:54 AM CDT [facility] CULTURE RESULT NO GROWTH (< OR = 1,000 CFU/ML) 01/28/2025 8:30 AM CDT [facility] URINE SPECIMEN OBTAINED BY CLEAN CATCH PROCEDURE / Unknown 01/26/2025 11:54 AM CDT 01/26/2025 12:06 PM CDT us Parker Limon MD MICROBIOLOGY - GENERAL ORDERABL ES Final Result Performing Organization Address [facility] Co de Phone Number [facility] [address] [place] [address], [id number] * (ABNORMAL) PROTIME/INR, VENOUS (01/26/2025 3:50 AM CDT) Only the most recent of3 resultswithin the time period is included. Pathologist [facility] PROTIME 15.7(H) 9.4 - 12.5 SEC 01/26/2025 4:23 AM CDT [facility] INR 1.3(H) 0.8 - 1.1 01/26/2025 4:23 AM CDT [facility] 01/26/2025 3:50 AM CDT Chencho Magallon MD LABORATORY Final Result Performing Organization Address City/[facility] Co de Phone Number [facility] [address] [place] [address], [phone] * Vancomycin Random Level (01/26/2025 3:50 AM CDT) Only the most recent of3 resultswithin the time period is included. Pathologist [facility] VANCOMYCIN RANDOM 13.3 MCG/ML 01/26/2025 4:33 AM CDT [facility] Comment:REFERENCE RANGE NOT ESTABLISHED 01/26/2025 3:50 AM CDT Chencho Magallon MD LABORATORY Final Result Performing Organization Address [facility] Co de Phone Number [facility] [address] [place] [address], [phone] * C AURIS,PCR,AXILLA/GROIN,NARES (01/25/2025 10:30 PM CDT) Pathologist [facility] ERYN AURIS (SUSAN/GROIN) Not Detected Not Detected 01/30/2025 3:55 AM CDT [employer] FRANCY DING Comment: A Not Detected result indicates that Eryn auris DNA was not present in the surveillance sample above the limit of detection of the assay. This assay is intended for screening of Eryn auris colonization from external human body sites and should not be used for patient monitoring, therapy decisions, or as a test of cure. This test was developed and its analytical performance characteristics have been determined by [employer] [place], [place]. It has not been cleared or approved by the U.S. Food and Drug Administration. This assay has been validated pursuant to the CLIA regulations and is used for clinical purposes. Test Performed by [facility], [facility], [address] [place], [place] Jaden Alves M.D., Ph.D., Director of Laboratories , CLIA [id number] 01/25/2025 10:3 0 PM CDT Chencho Magallon MD LABORATORY Final Result [employer] [facility] [address] [place], [place] , * BIOFIRE PCR UPPER RESPIRATORY PROFILE (RESPIRATORY PCR PANEL 2) (01/25/2025 2:30 PM CDT) ADENOVIRUS PCR (RESP) NOT DETECTED NOT DETECTED 01/25/2025 3:42 PM CDT [facility] CORONAVIRUS 229E PCR (RESP) NOT DETECTED NOT DETECTED 01/25/2025 3:42 PM CDT [facility] CORONAVIRUS HKU1 PCR (RESP) NOT DETECTED NOT DETECTED 01/25/2025 3:42 PM CDT [facility] CORONAVIRUS NL63 PCR (RESP) NOT DETECTED NOT DETECTED 01/25/2025 3:42 PM CDT [facility] CORONAVIRUS OC43 PCR (RESP) NOT DETECTED NOT DETECTED 01/25/2025 3:42 PM CDT [facility] METAPNEUMOVIRUS PCR (RESP) NOT DETECTED NOT DETECTED 01/25/2025 3:42 PM CDT [facility] RHINOVIRUS/ENTEROV IRUS PCR (RESP) NOT DETECTED NOT DETECTED 01/25/2025 3:42 PM CDT [facility] INFLUENZA A PCR (RESP) NOT DETECTED NOT DETECTED 01/25/2025 3:42 PM CDT [facility] INFLUENZA B PCR (RESP) NOT DETECTED NOT DETECTED 01/25/2025 3:42 PM CDT [facility] PARAINFLUENZA 1 PCR (RESP) NOT DETECTED NOT DETECTED 01/25/2025 3:42 PM CDT [facility] PARAINFLUENZA 2 PCR (RESP) NOT DETECTED NOT DETECTED 01/25/2025 3:42 PM CDT [facility] PARAINFLUENZA 3 PCR (RESP) NOT DETECTED NOT DETECTED 01/25/2025 3:42 PM CDT [facility] PARAINFLUENZA 4 PCR (RESP) NOT DETECTED NOT DETECTED 01/25/2025 3:42 PM CDT [facility] RSV PCR (RESP) NOT DETECTED NOT DETECTED 01/25/2025 3:42 PM CDT [facility] B PARAPERTUSIS PCR (RESP) NOT DETECTED NOT DETECTED 01/25/2025 3:42 PM CDT [facility] BORDETELLA PERTUSSIS PCR (RESP) NOT DETECTED NOT DETECTED 01/25/2025 3:42 PM CDT [facility] CHLAMYDOPHILA PNEUMONIAE PCR (RESP) NOT DETECTED NOT DETECTED 01/25/2025 3:42 PM CDT [facility] MYCOPLASMA PNEUMONIAE PCR (RESP) NOT DETECTED NOT DETECTED 01/25/2025 3:42 PM CDT [facility] CORONAVIRUS SARS COV 2 PCR (RESP) NOT DETECTED NOT DETECTED 01/25/2025 3:42 PM CDT [facility] NASOPHARYNGEAL SWAB / Unknown 01/25/2025 2:[address] NP MICROBIOLOGY - GENERAL ORDER RICH Final Result [facility] [address] [place] [address], [id number] * XR ABD UPRIGHT (01/24/2025 9:55 PM CDT) Only the most recent of3 resultswithin the time period is included. Anatomical Region Laterality Modality Abdomen Radiographic Kaylen ging 01/24/2025 10:2 2 PM CDT Impressions 01/24/2025 10:23 PM CDT IMPRESSION: ===== 1. Endogastric tube now in good position Referred By: UVALDO SMART Interpreted By: Andrés Perez MD, 01/24/2025 10:22 PM Narrative 01/24/2025 10:23 PM CDT [place] [address] Examination: Abdomen 1 view Exam Date/Time: 01/24/2025 9:48 PM Reason For Exam: ng inserted additional 8cm as per recommendations - placement verification Comparison: Chest radiograph 01/25/20202015 hours Technique: Single AP view of the abdomen was obtained. Findings: Right IJ line distal tip in the SVC. Endogastric tube tip and side-port in good position. No large effusion. Heart size stable. ===== Procedure Note Andrés Perez MD - 01/24/[address] [address] Examination: Abdomen 1 view Exam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 3.2 cm LVOT LVOT 2.25 cm Ratios IVS LA Biplane LAVol I BP 25.4 ml/m2 LV Biplane Major [place] Indigo 12.7 % Major [place] Indigo 19.5 % LV Left Ventricle Mass by M-mode LV Mass 193 g Right Ventricle Right Ventricle 4.4 cm Right Ventricle 3.6 cm Major [place] 7.3 cm MMODE TA Tricuspid Annul 2.44 cm <Electronic Signature> 01/18/2025 07:39 PM Sima Mayes M.D. us Jolene Zapien MD ECHO Final Result * PH GASTRIC FLUID (01/17/2025 1:06 AM CDT) GASTRIC PH 1.5 01/17/2025 1:19 AM CDT [facility] GASTRIC FLUID SPECIMEN / Unknown 01/17/2025 1:06 AM CDT us Jolene Zapien MD BODY FLUIDS AND STOOLS ORDERABLE S Final Result [facility] [address] [place] [address], [id number] * STAPH SCREENING BY PCR (01/16/2025 10:34 PM CDT) SPECIMEN SOURCE RESPIRATORY, NOSE 01/16/2025 10:44 PM CDT [facility] MRSA BY PCR NASAL METHICILLIN RESISTANT STAPH AUREUS NOT DETECTED METHICILLIN RESISTANT STAPH AUREUS NOT DETECTED 01/17/2025 11:35 AM CDT [facility] NASAL STRUCTURE / Unknown 01/16/2025 10:34 PM CDT us Jolene Zapien MD MICROBIOLOGY - GENERAL ORDERABLE S Final Result [facility] [address] [place] [address], [id number] * (ABNORMAL) HEMOGLOBIN, GLYCOSYLATED (01/16/2025 10:34 PM CDT) HGB A1C 7.8(H) <5.7 % 01/16/2025 11:41 PM CDT [facility] ESTIMATED AVG GLUCOSE 177(H) 74 - 114 MG/DL 01/16/2025 11:41 PM CDT [facility] 01/16/2025 10:3 4 PM CDT us Jolene Zapien MD LABORATORY Final Result Performing Organization Address [facility] Co de Phone Number [facility] [address] [place] [address], [id number] * (ABNORMAL) LIPID PANEL (01/16/2025 10:34 PM CDT) CHOLESTEROL 133 MG/DL 01/16/2025 11:33 PM CDT [facility] Comment:DESIRABLE: <200 TRIGLYCERIDES 343 MG/DL 01/16/2025 11:33 PM CDT [facility] Comment:200-499 HIGH HDL 34(L) >39 MG/DL 01/16/2025 11:33 PM CDT [facility] LDL (CALCULATED) 30 MG/DL 01/17/20 11:33 PM CDT [facility] Comment: <100 OPTIMAL CALCULATED USING THE FRIEDEWALD EQUATION VLDL CALCULATION 69 MG/DL 01/17/20 11:33 PM CDT [facility] Comment:REFERENCE RANGE NOT ESTABLISHED CHOL/HDL RATIO 3.9 01/16/2025 11:33 PM CDT [facility] Comment:REFERENCE RANGE NOT ESTABLISHED LDL/HDL 0.9 01/16/2025 11:33 PM CDT [facility] Comment:REFERENCE RANGE NOT ESTABLISHED NON HDL CHOLESTEROL 99 MG/DL 01/16/2025 11:33 PM CDT [facility] Comment:REFERENCE RANGE NOT ESTABLISHED 01/16/2025 10:3 4 PM CDT us Jolene Zapien MD LABORATORY Final Result Performing Organization Address [facility]/ZIP Co de Phone Number [facility] [address] [place] [address], [id number] * LACTIC ACID - SINGLE (01/16/2025 10:34 PM CDT) LACTIC ACID VENOUS 1.4 0.4 - 2.0 MMOL/L 01/16/2025 11:11 PM CDT [facility] 01/16/2025 10:3 4 PM CDT us Jolene Zapien MD LABORATORY Final Result Performing Organization Address [facility] Co de Phone Number [facility] [address] [place] [address], [phone] * (ABNORMAL) HEPATIC FUNCTION PANEL (01/16/2025 10:34 PM CDT) BILIRUBIN TOTAL S/P/B 0.3 0.2 - 1.0 MG/DL 01/16/2025 11:33 PM CDT [facility] BILIRUBIN DIRECT S/P/B <0.1 0.0 - 0.2 MG/DL 01/16/2025 11:33 PM CDT [facility] ALKALINE PHOSPHATASE S/P/B 104 45 - 115 U/L 01/16/2025 11:33 PM CDT [facility] AST 22 15 - 37 U/L 01/16/2025 11:33 PM CDT [facility] ALT 40 16 - 61 U/L 01/16/2025 11:33 PM CDT [facility] TOTAL PROTEIN S/P/B 6.6 6.4 - 8.2 G/DL 01/16/2025 11:33 PM CDT [facility] ALBUMIN S/P/B 3.1(L) 3.4 - 5.0 G/DL 01/16/2025 11:33 PM CDT [facility] 01/16/2025 10:3 4 PM CDT us Jolene Zapien MD LABORATORY Final Result Performing Organization Address [facility] de Phone Number [facility] [address] [place] [address], [place] [phone] * (ABNORMAL) THYROID STIM HORMONE, TSH (01/16/2025 10:34 PM CDT) TSH 3.950(H) 0.358 - 3.740 uIU/ML 01/16/2025 11:33 PM CDT [facility] Comment: ASSAY PERFORMED BY CHEMILUMINESCENCE METHODOLOGY USING SIEMENS DIMENSION VISTA REAGENT. PATIENT RESULTS DETERMINED BY ASSAYS USING DIFFERENT MANUFACTURERS FOR METHODS MAY NOT BE COMPARABLE. 01/16/2025 10:3 4 PM CDT us Jolene Zapien MD LABORATORY Final Result Performing Organization Address [facility] de Phone Number [facility] [address] [place] [address], [place] [phone] * PHOSPHORUS, INORGANIC PHOSPHATE (01/16/2025 10:34 PM CDT) PHOSPHORUS 3.8 2.5 - 4.9 MG/DL 01/16/2025 11:33 PM CDT [facility] 01/16/2025 10:3 4 PM CDT us Jolene Zapien MD LABORATORY Final Result Performing Organization Address [facility] Co de Phone Number [facility] [address] [place] [address], [place] [phone] * (ABNORMAL) CALCIUM, IONIZED (01/16/2025 10:34 PM CDT) CALCIUM IONIZED 1.12(L) 1.15 - 1.33 MMOL/L 01/16/2025 10:53 PM CDT [facility] 01/16/2025 10:3 4 PM CDT us Jolene Zapien MD LABORATORY Final Result [facility] [address] [place] [address], [phone] * XA NV DIAG CEREBRAL DARIEN (01/16/2025 8:46 PM CDT) Anatomical Region Laterality Modality NA [place] Tribunal Member 01/21/2025 10:4 5 AM CDT Narrative 01/21/2025 10:55 AM CDT [facility] [address] [place], [place] [address] Date of procedure: 01/16/2025 6:51 PM PROCEDURE: Diagnostic cerebral angiogram Angio-Seal arteriotomy closure cable tower operator: Armand Nichols M.D. INDICATION: Mr. Valenzuela has suffered acute ischemic stroke, with evidence for left MCA and left internal carotid artery occlusion. He presents for possible thrombectomy. Vessels injected: Right internal carotid artery, right common carotid artery (with views that delineate and interpret intracranial vessels), left external carotid artery, right common femoral artery Sedation: General anesthesia Competitions: None immediate Procedural detail: The risks, benefits, and rationale for this procedure were explained in-depth to the patient's daughter, Carey Spence, by phone. The risks of damage to the femoral artery and bleeding in the brain were specifically mentioned. Telephone informed consent was obtained. Mr. Valenzuela was brought to the biplane angiography suite and general anesthesia was induced. After this a timeout was performed. The patient was then prepped and draped in usual sterile fashion. An 8 Swazi sheath was easily placed using an 18-gauge Cook needle. Through this sheath, a BMX guiding catheter was coaxially introduced with the Select catheter accompanying it. Using a J-wire, it was delivered to the left common carotid artery. The select catheter was advanced into the left external carotid artery and an angiogram was performed. The select catheter was removed and an angiogram with intracranial views was performed (series 3). Multiple attempts were made to try and cross the noted area of occlusion of the internal carotid artery. This included using a 0.035 inch Glidewire, a stiff 0.035 inch Glidewire, and a Synchro support 0.014 inch microwire. This lesion could not be crossed. The guide catheter was withdrawn back to the aorta, then the select catheter was advanced through it. The select catheter was used to deliver the BMX to the right brachiocephalic artery, then the Select catheter was advanced into the right internal carotid artery. A cerebral angiogram was performed. The system was then pulled back to the aorta, and more attempts were made to try and cross the noted area of occlusion. Again these were all unsuccessful. All catheters and wires were then removed from the sheath. An angiographic run was obtained through the sheath. The sheath was then exchanged for an 8 Swazi Angio-Seal device. This was deployed successfully. Hemostasis appeared to be immediate. The patient was taken to the intensive care unit in hemodynamically stable condition, still intubated FINDINGS: There was good opacification of the arterial, capillary, and venous phases on all angiographic runs. The first angiogram is a left external carotid artery angiogram. This demonstrates a normal branching pattern of the left external carotid artery. There is an anastomosis between a branch of the maxillary artery and the left ophthalmic artery, and there is opacification of the left carotid terminus and some of the proximal left middle cerebral artery. There is no suggestion of dural arteriovenous fistula. Series 3 is a left common carotid artery angiogram with intracranial views. There is complete occlusion of the left internal carotid artery just past its origin. Again noted is filling of some of the left middle cerebral artery via collateral from the left external carotid artery. The right internal carotid artery cerebral angiogram demonstrates that the petrous, cavernous, and supraclinoid internal carotid artery segments are normal in course and caliber. The internal carotid artery bifurcates into the middle cerebral and anterior cerebral arteries. The M1, M2, A1, A2 segments are all normal in course and caliber. There is brisk filling of the left anterior cerebral artery seen from this injection, but the left A1 segment and left middle cerebral artery do not opacify from this injection. No aneurysm, AVM, or early venous shunting is identified from this injection. The major dural sinuses seen from this injection are normal in appearance. The right common femoral artery angiogram demonstrates a puncture site above the femoral artery bifurcation. There is no filling defect or evidence for dissection. IMPRESSION This angiogram demonstrates complete occlusion of the left internal carotid artery just past its origin. There is collateral supply to the left middle cerebral artery territory via the left external carotid artery. The left anterior cerebral artery fills via the anterior communicating artery. Multiple attempts were made to try and cross the carotid occlusion, this was unsuccessful. Ordered By: ARMAND NICHOLS Interpreted By: Armand Nichols MD, 01/21/2025 10:45 AM Procedure Note Armand Nichols MD - 01/21/[address] [address] Date of procedure: 01/16/2025 6:51 PM PROCEDURE: Diagnostic cerebral angiogram Angio-Seal arteriotomy closure cable tower operator: Armand Nichols M.D. INDICATION: Mr. Valenzuela has suffered acute ischemic stroke, with evidencefor left MCA and left internal carotid artery occlusion. He presents forpossible thrombectomy. Vessels injected: Right internal carotid artery, right common carotidartery (with views that delineate and interpret intracranial vessels),left external carotid artery, right common femoral artery Sedation: General anesthesia Competitions: None immediate Procedural detail: The risks, benefits, and rationale for this procedure were explainedin-depth to the patient's daughter, Carey Spence, by phone. The risks ofdamage to the femoral artery and bleeding in the brain were specificallymentioned. Telephone informed consent was obtained. Mr. Valenzuela was brought to the biplane angiography suite and generalanesthesia was induced. After this a timeout was performed. The patientwas then prepped and draped in usual sterile fashion. An 8 Swazi sheathwas easily placed using an 18-gauge Cook needle. Through this sheath, aBMX guiding catheter was coaxially introduced with the Select catheteraccompanying it. Using a J-wire, it was delivered to the left commoncarotid artery. The select catheter was advanced into the left externalcarotid artery and an angiogram was performed. The select catheter wasremoved and an angiogram with intracranial views was performed (series 3).Multiple attempts were made to try and cross the noted area of occlusionof the internal carotid artery. This included using a 0.035 inchGlidewire, a stiff 0.035 inch Glidewire, and a Synchro support 0.014 inchmicrowire. This lesion could not be crossed. The guide catheter waswithdrawn back to the aorta, then the select catheter was advanced throughit. The select catheter was used to deliver the BMX to the rightbrachiocephalic artery, then the Select catheter was advanced into theright internal carotid artery. A cerebral angiogram was performed. Thesystem was then pulled back to the aorta, and more attempts were made totry and cross the noted area of occlusion. Again these were allunsuccessful. All catheters and wires were then removed from the sheath. An angiographicrun was obtained through the sheath. The sheath was then exchanged for an8 Swazi Angio- Seal device. This was deployed successfully. Hemostasisappeared to be immediate. The patient was taken to the intensive care unit in hemodynamicallystable condition, still intubated FINDINGS: There was good opacification of the arterial, capillary, and venous phaseson all angiographic runs. The first angiogram is a left external carotid artery angiogram. Thisdemonstrates a normal branching pattern of the left external carotidartery. There is an anastomosis between a branch of the maxillary arteryand the left ophthalmic artery, and there is opacification of the leftcarotid terminus and some of the proximal left middle cerebral artery.There is no suggestion of dural arteriovenous fistula. Series 3 is a left common carotid artery angiogram with intracranialviews. There is complete occlusion of the left internal carotid arteryjust past its origin. Again noted is filling of some of the left middlecerebral artery via collateral from the left external carotid artery. The right internal carotid artery cerebral angiogram demonstrates that thepetrous, cavernous, and supraclinoid internal carotid artery segments arenormal in course and caliber. The internal carotid artery bifurcates intothe middle cerebral and anterior cerebral arteries. The M1, M2, A1, O2dagtwjpx are all normal in course and caliber. There is brisk filling ofthe left anterior cerebral artery seen from this injection, but the leftA1 segment and left middle cerebral artery do not opacify from thisinjection. No aneurysm, AVM, or early venous shunting is identified fromthis injection. The major dural sinuses seen from this injection arenormal in appearance. The right common femoral artery angiogram demonstrates a puncture siteabove the femoral artery bifurcation. There is no filling defect orevidence for dissection. IMPRESSION This angiogram demonstrates complete occlusion of the left internalcarotid artery just past its origin. There is collateral supply to theleft middle cerebral artery territory via the left external carotidartery. The left anterior cerebral artery fills via the anteriorcommunicating artery. Multiple attempts were made to try and cross the carotid occlusion, thiswas unsuccessful. Ordered By: ARMAND NICHOLS Interpreted By: Armand Nichols MD, 01/21/2025 10:45 AM us Armand Nichols MD WOOL SPOTTER Final Resul t * Art Line (01/16/2025 7:02 PM CDT) Wong Petersen CRNA - 01/16/2025 7:02 PM CDT Wong Noland CRNA 01/16/2025 7:25 PM Art Line Date/Time: 01/16/2025 7:02 PM Performed by: Wong Noland CRNA Authorized by: Jose Michel MD Patient Location: [place] Placed Outside of This Facility?: No Size: 16 Orientation: Left Location: Radial Site Prep: Chlorhexadine Local Anesthetic: None Insertion Attempts: 1 Ultrasound-guided Placement: No Secure Method: Taped Patient Tolerance: Tolerated well us Jose Michel MD DC ANESTHESIA Final Result * (ABNORMAL) COMPREHENSIVE METABOLIC PANEL (01/16/2025 5:07 PM CDT) SODIUM S/P/B 129(L) 136 - 145 MMOL/L 01/16/2025 5:34 PM CDT [facility] POTASSIUM S/P/B 4.5 3.5 - 5.1 MMOL/L 01/16/2025 5:34 PM CDT [facility] CHLORIDE S/P/B 96(L) 98 - 107 MMOL/L 01/16/2025 5:34 PM CDT [facility] CO2 24.9 21.0 - 32.0 MMOL/L 01/16/2025 5:34 PM CDT [facility] GLUCOSE 190(H) 70 - 99 MG/DL 01/16/2025 5:34 PM CDT [facility] Comment: FASTING GLUCOSE 100 TO 125 MG/DL IS CONSISTENT WITH IMPAIRED FASTING GLUCOSE. FASTING GLUCOSE >125 MG/DL IS CONSISTENT WITH DIABETES. RANDOM GLUCOSE >200 MG/DL WITH HYPERGLYCEMIC SYMPTOMS IS CONSISTENT WITH DIABETES. PER ADA GUIDELINES BUN 51(H) 6 - 24 MG/DL 01/16/2025 5:34 PM CDT [facility] CREATININE S/P/B 2.45(H) 0.70 - 1.30 MG/DL 01/16/2025 5:34 PM CDT [facility] CALCIUM S/P/B 9.3 8.4 - 10.5 MG/DL 01/16/2025 5:34 PM CDT [facility] BILIRUBIN TOTAL S/P/B 0.3 0.2 - 1.0 MG/DL 01/16/2025 5:34 PM CDT [facility] Comment: THIS ASSAY IS NOT RECOMMENDED FOR PATIENTS UNDERGOING TREATMENT WITH ELTROMBOPAG DUE TO THE POTENTIAL FOR FALSELY ELEVATED RESULTS. ALKALINE PHOSPHATASE S/P/B 115 45 - 115 U/L 01/16/2025 5:34 PM CDT [facility] AST 24 15 - 37 U/L 01/16/2025 5:34 PM CDT [facility] ALT 39 16 - 63 U/L 01/16/2025 5:34 PM CDT [facility] TOTAL PROTEIN S/P/B 6.8 6.4 - 8.2 G/DL 01/16/2025 5:34 PM CDT [facility] ALBUMIN S/P/B 3.4 3.4 - 5.0 G/DL 01/16/2025 5:34 PM CDT [facility] ANION GAP 8.1 5.0 - 15.0 MMOL/L 01/16/2025 5:34 PM CDT [facility] OSMOLALITY (CALC) 287 MOSM/KG 025 5:34 PM CDT [facility] Comment:REFERENCE RANGE NOT ESTABLISHED GFR ESTIMATE 28(L) >89 ML/MIN/1. 73 M2 01/16/2025 5:34 PM CDT [facility] GFR NOTES GFR REFERENCE S: 01/16/2025 5:34 PM CDT [facility] Comment: THE ESTIMATED GFR IS CALCULATED USING THE 2020 CKD-EPI EQUATION. THE FOLLOWING CATEGORIES FOR GRADING RENAL FUNCTION ARE RECOMMENDED BY THE INTERNATIONAL SOCIETY OF NEPHROLOGY (KDIGO 2012 CLINICAL PRACTICE GUIDELINE). G1,NORMAL OR HIGH: >89 ml/min/1.73 m2 G2,MILDLY DECREASED: 60-89 ml/min/1.73 m2 G3A,MILDLY TO MODERATELY DECREASED: 45-59 ml/min/1.73 m2 G3B,MODERATELY TO SEVERELY DECREASED: 30-44 ml/min/1.73 m2 G4,SEVERELY DECREASED: 15-29 ml/min/1.73 m2 G5,KIDNEY FAILURE: <15 ml/min/1.73 m2 01/16/2025 5:07 PM CDT us Uvaldo Smart MD LABORATORY Final Result [facility] [address] [place], [place] [address] [phone] * Critical Care (01/16/2025 4:58 PM CDT) Narrative Uvaldo Smart MD - 01/16/2025 4:58 PM CDT Uvaldo Smart MD 01/17/2025 7:50 AM Critical Care Performed by: Uvaldo Smart MD Authorized by: Uvaldo Smart MD Critical care provider statement: Critical care time (minutes): 60 Critical care start time: 01/16/2025 4:30 PM Critical care end time: 01/16/2025 5:30 PM Critical care was necessary to treat or prevent imminent or life-threatening deterioration of the following conditions: TIRE TRIMMER HAND failure or compromise Critical care was time spent personally by me on the following activities: Examination of patient, re-evaluation of patient's condition, pulse oximetry, review of old charts, ordering and review of radiographic studies, ordering and review of laboratory studies, ordering and performing treatments and interventions, discussions with consultants, discussions with primary provider, development of treatment plan with patient or surrogate and obtaining history from patient or surrogate Uvaldo Smart MD PROCEDURE/MINOR SURGICAL ORDERAB LES Final Result * CTA HEAD+NECK (01/16/2025 4:54 PM CDT) Anatomical Region Laterality Modality Head, Neck Computed Tomogra phy 01/16/2025 5:29 PM CDT Impressions 01/16/2025 5:46 PM CDT IMPRESSION: 1. No acute intracranial findings. 2. 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 Diffusely diminished caliber of the left MCA territory vessels. Recommend vascular consultation. 3. Likely flow-limiting 50-75% stenosis at the proximal right ICA. Referred By: Interpreted By: Glenna Martínez DO, 01/16/2025 5:29 PM Narrative 01/16/2025 5:[address] [place] [address] CTA HEAD+NECK, CT HEAD WO CON: 01/16/2025 4:54 PM HISTORY: weakness COMPARISON: None are available at this time. TECHNIQUE: Axial non-contrast images from the skull base to the vertex were obtained. During the bolus administration of intravenous contrast, CTA images from the aortic arch to the vertex were obtained. Delayed axial post-contrast images were acquired through the brain. Images were reformatted in coronal and sagittal planes. 3D images were reformatted. Any estimated stenosis is based on NASCET criteria. A dose lowering technique was utilized for this procedure which may include but is not limited to dose reduction techniques, automated exposure control, and/or the use of iterative reconstruction in accordance with ALARA principle. FINDINGS: HEAD CT: Brain: There is no evidence of intracranial hemorrhage, mass effect, or midline shift. There are patchy areas of hypodensity within the white matter which are nonspecific. No definite acute cortical infarct is apparent. There is atherosclerotic calcification of the cavernous internal carotid arteries and distal vertebral arteries. Ventricles: The ventricles and sulci are mild to moderately enlarged consistent with moderate global parenchymal volume loss. Skull: The osseous structures are unremarkable in appearance. Other: Dependent mucus within the left frontal sinus CTA head: Vasculature: The intracranial arteries show normal anatomy without evidence of major branch occlusion. 25-50% calcific stenosis of the cavernous ICAs. There is diffusely diminished caliber of the left MCA territory There is no suspicion of vascular malformation or saccular aneurysm. Variant Anatomy: No variant anatomy is noted. CTA neck: Aorta: Bovine arch branching pattern. The great vessel origins are patent without flow-limiting stenosis. Vertebral Arteries: The origins of the vertebral arteries are patent. No flow-limiting stenosis, occlusion or dissection. 25% calcific stenosis of the distal left vertebral artery Right Carotid: No flow-limiting stenosis, occlusion or dissection of the common carotid or internal carotid arteries. There is moderate plaque of the proximal ICA. Right Internal Carotid Artery: 50-75% stenosis by NASCET. Left Carotid: Complete occlusion starting 0.8 cm from the carotid bulbs with distal reconstitution starting within the distal cavernous ICA. There is severe plaque of the proximal ICA. Left Internal Carotid Artery: 100% stenosis by NASCET. Variant Anatomy: The left vertebral artery is dominant representing normal variation. Cervical spine: There are multilevel degenerative changes with severe multilevel osseous foraminal narrowing. Other: The paraspinous soft tissues and visualized lung apices are unremarkable. Extravascular anatomy: No mass or significant adenopathy is seen. Sinuses: The visualized paranasal sinuses are well aerated. Procedure Note Glenna Martínez, DO - 01/16/2025 [facility] [address] [place] [address] CTA HEAD+NECK, CT HEAD WO CON: 01/16/2025 4:54 PM HISTORY: weakness COMPARISON: None are available at this time. TECHNIQUE: Axial non-contrast images from the skull base to the vertexwere obtained. During the bolus administration of intravenous contrast,CTA images from the aortic arch to the vertex were obtained. Delayedaxial post-contrast images were acquired through the brain. Images werereformatted in coronal and sagittal planes. 3D images were reformatted.Any estimated stenosis is based on NASCET criteria. A dose lowering technique was utilized for this procedure which mayinclude but is not limited to dose reduction techniques, automatedexposure control, and/or the use of iterative reconstruction in accordancewith ALARA principle. FINDINGS: HEAD CT: Brain: There is no evidence of intracranial hemorrhage, mass effect, ormidline shift. There are patchy areas of hypodensity within the whitematter which are nonspecific. No definite acute cortical infarct isapparent. There is atherosclerotic calcification of the cavernousinternal carotid arteries and distal vertebral arteries. Ventricles: The ventricles and sulci are mild to moderately enlargedconsistent with moderate global parenchymal volume loss. Skull: The osseous structures are unremarkable in appearance. Other: Dependent mucus within the left frontal sinus CTA head: Vasculature: The intracranial arteries show normal anatomy withoutevidence of major branch occlusion. 25-50% calcific stenosis of thecavernous ICAs. There is diffusely diminished caliber of the left MCAterritory There is no suspicion of vascular malformation or saccularaneurysm. Variant Anatomy: No variant anatomy is noted. CTA neck: Aorta: Bovine arch branching pattern. The great vessel origins are patentwithout flow-limiting stenosis. Vertebral Arteries: The origins of the vertebral arteries are patent. Noflow- limiting stenosis, occlusion or dissection. 25% calcific stenosis of the distal left vertebral artery Right Carotid: No flow-limiting stenosis, occlusion or dissection of thecommon carotid or internal carotid arteries. There is moderate plaque ofthe proximal ICA. Right Internal Carotid Artery: 50-75% stenosis byNASCET. Left Carotid: Complete occlusion starting 0.8 cm from the carotid bulbswith distal reconstitution starting within the distal cavernous ICA.There is severe plaque of the proximal ICA. Left Internal Carotid Artery:100% stenosis by NASCET. Variant Anatomy: The left vertebral artery is dominant representing normalvariation. Cervical spine: There are multilevel degenerative changes with severemultilevel osseous foraminal narrowing. Other: The paraspinous soft tissues and visualized lung apices areunremarkable. Extravascular anatomy: No mass or significant adenopathy is seen. Sinuses: The visualized paranasal sinuses are well aerated. IMPRESSION: 1. No acute intracranial findings. 2. 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 Recommendvascular consultation. 3. Likely flow-limiting 50-75% stenosis at the proximal right ICA. Referred By: Interpreted By: Glenna Martínez DO, 01/16/2025 5:29 PM Uvaldo Smart MD CT Final Result from Last 3 Months Insurance MEDICARE MEDICARE [employer] Advance Directives * Full Code (Latest Code Status on File) Date Activated Date Inactivated Comments 01/16/2025 8:33 PM 02/08/2025 4:07 PM * Full Code Date Activated Date Inactivated Comments 01/16/2025 8:10 PM 01/16/2025 8:33 PM Care Teams Resource Engineer Relationship Specialty Start Date End Date Srinivasan Lucero MD [address] [place] [address] PCP - General INTERNAL MEDICINE 06/11/22
--- OUTSIDE RECORDS SUMMARY | 2025-03-25 11:24 | XMS_ITS | Continuity of Care Document ---
Author Organization [place] [facility] [place] Address [address] [place] [address] Care Team Providers Care Electric Pile Driver Operator Name Role Phone P [facility] FAX OTHER MENG CHEN Primary Care Provider [phone] Assessment Encounter Date Assessment Date Assessment LastModified by Organization Details LastModified Time 03/17/2025 03/17/2025 Will need to clarify with Dr. Lori Clay (neurology) in [place], [place] if pt is supposed to be on baby ASA & Atorvastatin -- unclear why/when these were stopped. Consider d/c Lactobacillus & PRN Gabapentin. Not available 03/17/2025 18:48:31 Plan of Treatment Reminders Order Date Submit Date Provider Last Modified By Organization Details Last Modified Time Details Appointments None record ed. Lab None record ed. Referral None record ed. Procedures None record ed. Surgeries None record ed. Imaging None record ed. Medication Orders None record ed. Patient TargetsNo targets recorded. Patient Instructions Encounter Date Encounter Id Patient Instructions Last Modified By Organization Details Last Modified Time 03/17/2025 [id number] I spent 60 minutes providing care to the patient today. More than 50% of that time was spent in discussing the expected course of the disease, discussing prognosis, coordinating care and counseling of the patient/family. Not available 03/17/2025 19:05:01 Reason for Referral None Reported. Results Created Date Observation Date Name Description Value Unit Range Abnormal Flag Note LastModifiedBy Organization Detail LastModifiedTime 03/19/20 25 03/18/2025 XR, abdom en No observ ation record ed. [facility] [address], [place], [address], 03/20/2025 10:26:15 03/19/20 25 03/18/2025 XR, abdom en No observ ation record ed. [facility] [address], [place], [address], 03/20/2025 10:26:31 Result Notes None recorded. Procedures Surgical History Date Name Laterality Status Provider Name and Address Organization Details Recorded Time 02/06/20 endoscopic placement of gastrostomy tube completed Makenzie Lamar, KRISTI [address] [place], [address], [facility] 03/17/2025 18:12:51 Imaging Results None recorded. Procedure Notes None recorded. Medical Equipment None Reported. Allergies No known drug allergies Medications Name Sig Start Date Stop Date Status Note LastModified by Organization Details LastModified Time acetamino phen 325 mg tablet Take 2 tablets every 4 hours by oral route as needed. active Not Available Not Available No t Available lidocaine 4 % topical patch Apply 1 patch every day by topical route as needed. 03/22 completed Not Available Not Available Not Available albuterol sulfate 2.5 mg/3 mL (0.083 %) solution for nebulizat ion Inhale 3 mL every 2 hours by nebuliza tion route as needed. active Not Available Not Available No t Available hydrocodo ne 5 mg-acetam inophen 325 mg tablet Take 1 tablet every 8 hours by oral route as needed. 2024 active Not Available Not Available Not Avai lable senna 8.6 mg tablet Take 1 tablet twice a day by oral route. active Not Available Not Available No t Available ondansetr on HCl 4 mg tablet Take 1 tablet every 4 hours by oral route as needed. active Not Available Not Available No t Available melatonin 3 mg tablet Take 1 tablet every day by oral route as needed. active Not Available Not Available No t Available Humalog U-100 Insulin 100 unit/mL subcutane ous solution Inject 0-12 units by subcutan eous route three times a day as needed per sliding scale. active Not Available Not Available No t Available pantopraz ole 40 mg tablet,de layed release Take 1 tablet every day by oral route. active Not Available Not Available No t Available fluoxetin e 20 mg tablet Take 1 tablet every day by oral route. active Not Available Not Available No t Available gabapenti n 100 mg capsule Take 2 capsules 3 times a day by oral route. active Not Available Not Available No t Available polyethyl isabel glycol 3350 17 gram/dose oral powder Take 17 g every day by oral route. active Not Available Not Available No t Available simethico ne 80 mg chewable tablet Take 1 tablet 4 times a day by oral route. active Not Available Not Available No t Available Lactobaci llus acidophil us 1 billion cell tablet Take 1 tablet every day by oral route. active Not Available Not Available No t Available baclofen 5 mg tablet Take 1 tablet every 8 hours by oral route. active Not Available Not Available No t Available Theraworx Pain Relief 4 % topical liquid roll-on Apply 1 mL every day by topical route as needed. 03/17 completed 1 applicat ion Not Available Not Available Not Available Vitals Date Recorded Heart rate Body temperature Respiratory rate Oxygen saturation Body weight Body mass index (BMI) Body height Systolic And Diastolic Provider Name and Address Organization Details Last Updated DateTime 80 /min 97.6 [degF] 18 /min 94 % 78009.0 8 g 27.6 kg/m2 187.96 cm 122/74 mm[Hg] [place] [address] [place], [address], [facility] 16:21:15 Social History Question Answer Notes LastModified by Organizat ion Details LastModified Time Tobacco Smoking Status Unknown If Ever Smoked possible [place] [address] [place], [address], [facility] 03/17/2025 17:54:49 Do You Have An Advance Directive? No [email or web address] Information not available 03/17/2025 What Is Your Relationship Status? Domestic Partner elvin Information not available 03/17/2025 Sex: Unknown Functional Status None recorded. Mental Status None recorded. Family History Relationship Description Onset Age of this Age Resolved Age Notes LastModified by Organization Details LastModified Time Father Hypertensive disorder [email or web address] Not available 2024 09:32:11 Medical History Condition Response Diabetes Y Chronic Kidney Disease (CKD) Y Stroke (CVA) Y Hyperlipidemia Y Hypertension Y Past Encounters Encounter ID Performer Location Encounter Start Date Encounter Closed Date Diagnosis/Indication Diagnosis SNOMED-CT Code Diagnosis ICD10 Code Diagnosis IMO Codes Diagnosis Note [id number] [address] [place] [address] [place] [address] 03/17/2025 09:44:15 03/25/2025 06:04:25 Hypertensive heart AND chronic kidney disease stage 3 2231037163 9100 I13.10 N18.30 [id number] Pt was taking Carvedilol , Chlorthali done, Felodipine , Hydralazin e, and Losartan as OP. All of these medication s were discontinu ed while inpatient. Stable off medication s.Continue to trend blood pressures, monitor lytes and renal function, and add meds as clinically indicated. Insulin tr eated type 2 diabetes mellitus 438952967 E11.9 Z79.4 022599 HgA1c 7.8% on 01/16/25. Pt was on Humulin 70/30 (30 u BID) prior to hospitaliz ation. This was changed to Lantus & SSI while inpatient. Continue Lantus & SSI. Goal is to adjust Lantus so can stop SSI.Monito r blood sugars and encourage LCS diet. Mixed hyperlipidemia 267 255897 E78.2 77325 SEE ABOVE... Hemiparesi s as late effect of cerebrovascular accident 943829833 I69.351 55100701 SEE ABOVE... Ischemic stroke 42459814 2 I63.9 077961 CTA head and neck on 01/16 showed chronic appearing occlusive left ICA and diffusely diminished caliber of Left MCA territory vessels. He was outside the window for TPA. During attempted thrombecto my, found to have complete occluded Left ICA that could not be crossed despite multiple attempts. He is now with dense right hemiplegia , aphasia, and dysphagia. He was originally started on Atorvastat in 80 mg, but at some point after hospitaliz ation this was stopped? Prior to hospitaliz ation, he was taking Atorvastat in 40 mg daily, LDL was 30. It is also unclear why he is no longer on baby ASA.He originally followed his swallow evaluation . PEG [facility] was [facility] on 02[facility]05. [facility] and was transition ed away from using his PEG tube.Urszula nue Baclofen, Gabapentin , and PRN Lidocaine patch, APAP, & Wadsworth.Cont inue PT/OT/ST.R D to follow.F/U with Dr. Lori Clay (neurology ) in [place], [place] as OP. Aphasia 91784662 I69.302 0888384 SEE ABOVE... Dysphagia as a late effect of cerebrovascular accident 456900085 I69.330 5404520 SEE ABOVE... Aspiration pneumonitis 765501381 J69.0 2756 Suspected due to accidental large bolus TF while inpatient. Completed antibiotic regimen with resolution .Monitor respirator y symptoms for recurrence .ST to follow. Gastrostom y tube in situ 738374430 Z93.6 [id number] SEE ABOVE... Acute kidney injury 1466 9001 N17.9 814671 Per records, baseline Cr is 2.68. Cr peaked at 4.3 while inpatient, improved with fluids and cessation of Chlorthali done.Monit or labs closely and avoid nephrotoxi ns.F/U with Dr. Destiny Wiseman (nephrolog y) in [place], [place] as OP. Hypernatremia 037242262 E87.0 56405 Resolved with fluids. Monitor level. Physical deconditioning 4658457750 9102 R53.81 030719 Related to age, recent inpatient stay, and multiple comorbidit ies. Continue PT/OT/ST and monitor progress. Discharge planning is unclear at this point. Will likely need placement. SW to follow. Anemia 458843195 D64.9 76992847 Hgb 9s. Consider checking anemia panel as do not see that this was done while inpatient. Continue to trend Hgb. Vitamin D deficiency 347 56832 E55.9 32362 Per history. Not on supplement . Monitor for need. Chronic constipation 236 070200 K59.09 819663 Stable. Continue Miralax. Additional cathartics available per standing orders. Chronic insomnia 6023912 04 F51.04 688255 Continue PRN Melatonin. Vomiting 925241006 R11.1 0 0761383039 Improved. Continue Simethicon e, Pantoprazo le, and PRN Zofran. Recurrent major depressive episodes 057333117 F33.9 86914842 Stable at present. Continue Fluoxetine . Health Concerns Section Related Observation LastModified by Organization Detai ls LastModified Time None Recorded Concern Status LastModified by Organization Details LastModified Time None Recorded Payers Encounter Date Sequence Insurance Name Policy Number Policy Henning Covered Member ID Henning Member ID Guarantor Name 03/17/2025 1 [place] Zac Valenzuela [id number] Zac Valenzuela 03/17/2025 2 [employer] (MEDICARE SUPPLEMENT) Zac Valenzuela [id number] Zac Valenzuela Notes Date Note Type Note Provider Name and Address Organization Details Recorded Time 03/17/20 25 text/htm l 70-year-old male with PMH of HTN, DM-2, CKD-3, and HLD presenting for rehabilitation following inpatient stay at [facility] in [place], [place] from 01/16 to 02/08/25 for large LMCA acute CVA with [R] hemiparesis, aphasia, dysphagia s/p PEG tube placement, aspiration of tube feeding with pneumonitis, HUSSEIN on CKD-3/4, hypernatremia, weakness, and chronic medical conditions.It appears he was discharged to [facility] from 02/08 to 02/23/25 (do not have records from this time), then transitioned to [facility] from 02/23 to 03/15/25. He has since transferred here for further rehabilitation. Per original [facility] Discharge Summary =Problem Based course:Zac Valenzuela is a 70-year-old male with the following history as recorded in EpicCare:70 year old male with history of HTN, DM, CKD stage 4, admitted on 01/16 with Acute ischemic stroke. Initial read of CT was unremarkable. CTA head and neck showed chronic appearing occlusive left ICA and diffusely diminished caliber of Left MCA territory vessels. He was outside the window for TPA. He is transferred to consider thrombectomy. During the procedure, found to have complete occluded Left ICA that could not be crossed despite multiple attempts. He is initially admitted to ICU. Then downgraded on 01/23/2025# Large LMCA acute stroke# left carotid occlusion# Cerebral edema- Dense Right hemiplegia with Profound speech defect both receptive and receptive.- Was not a candidate for TPA due to outside of window- S/P Failed attempts to cross occluded Left ICA by Neuro vascular intervention.- S/P 3% saline gtt to get serum Na+ 150-155.- Failed Swallow. S/P Keofeed. Now S/P G tube placement on TF- Continue ASA, Statin- on FluoxetineHypernatremiaAcute kidney injury on CKD Stage 3/4HypermagnesemiaHyperphosphat emiaS/P Hypertonic saline for therapeutic Hypernatremia with goal Na 15-155- Subsequent S/P D5W and started 100 ml/hr free water through G tube.- Na normalized but again started increased. Hence, added free water 200ml Q4 throgh G tube and Na is normalized.- his baseline Cr 2.68. on Admission Cr 2.47 but peaked to 4.3.. then improved to 2.86 and now trending up along with increasing Phos and Mg- Started 1/2 NS At 125 ml/Hr. Nephrology evaluated and stopped IV fluids. Continue free water flushes. Change the TF formula to Nepro and monitor renal function. Phosphorus still high consider phosphate binder. No concern for Mg being high- D/W Administrative Processor. TF will be changed to nepro and bolus feeding continue 100 ml/hr free water flushes. However, RN reports patient only getting 200 ml water with bolus feeding 4 X day. RN confirmed patient is getting 100 ml/hr free water total 2.4 L/day- Overnight RN accidentally administered 1 L of TF over 4/5 hours (02/04 night). Due to Vomiting episode, TF held 02/05 morning and observed. Respiratory status stable. TF re initiated this afternoon.- Renal panel mildly elevated. D/W Nephrology who evaluated and restarted IV fluids with NS, creatinine improved, nephrology cleared patient for discharge.Aspiration of tube feeding with RLL pneumonitis- RN mistakenly administered large quantity of TF in short period and subsequently patient developed vomiting with possible aspiration. Noted increased WBC. CXR showed RLL consolidation.- Not in distress and room air saturating.- Start Augmentin to prevent pneumonia X 7 daysWorsening leukocytosis- Urine C/S, respiratory viral Panel negative. Blood cultures are growing gram-positive rods. Repeat cultures negative. Per ID likely contamination- Completed antibiotics as per ID recommendations on 01/29- Resolved. But increased due to aspirationHyperglycemia, uncontrolledDiabetes mellitus- BG increasing. Increase Lantus 30 U BID- Increase SSI to high dose.- BG significantly improving after changing to Nepro TF. Lantus changed to 15 U daily.Hx HTN- Initial SBP goal <220 then decreased to <180. And subsequently Goal <140. Chcf BP goal <130/70- BP is acceptable on Coreg, Hydralazine and NorvascAnemia of CKD- Hb stable New meds: Amlodipine, Augmentin x 7 days, Colace, Famotidine, Prozac, Lantus, SSI, Senna, Renvela, Tube Feeding (Nepro QID) with 200 ml free water BID.Adjusted meds: NoneStopped meds: Astelin, Chlorthalidone, Felodipine, Flonase, Biotin, Humulin 70/30, Losartan, MVI, Fish Oil, Vit C Per [facility] latest records available =Zac Valenzuela is a 70 year old male with a past medical history of diabetes, CKD, left MCA with right sided paralysis status post Gtube and HTN who presented to Hospital on 02/08/25 for a left acute MCA stroke secondary to L carotid artery occlusion. on 01/16/25 was found to have an acute ischemic stroke. Initial CT was unremarkable. CTA head and neck showed chronic appearing occlusive left ICA and diffusely diminished caliber of Left MCA territory vessels. Pt was outside the window for TPA. was transferred to consider thrombectomy. During the procedure, found to have complete occluded Left ICA that could not be crossed despite multiple attempts. hospital course was complicated by pneumonia, positive blood cultures for diphtheria. Pt failed his speech evaluation and G-tube was placed. Pt experienced aspiration pneumonia after large-volume emesis on 02/05 s/p Augmentin. Pt also had an acute kidney injury on chronic kidney disease and is on renal specific formula for feedings; requiring nephrology follow up in 2-3 months.Interval hx:02/25:Seen and evaluated at bedside. No acute events overnight. Overall feeling well without complaints.Objective data reviewed. blood glu elevated, will add 2u qhs glargine.een and evaluated at bedside. No acute events overnight. Overall feeling well without complaints.Objective data revlewed. BS still elevated. Increase glargine to 5u qhs.02/27/25patient seen on daily roundsno overnight reports from the nurseNo reports of N/V/D/C, fever, chills, palpitations, chest pain, SOB or dizzinessVital sign were reviewedblood sugar remained elevated will increase glargine to 8 units, continue monitornurse reports right hand swallowing getting worse, patient unable to answer questions, stat x ray and a Doppler ordered, PM&R follow-up for pain, continue wrucere19/18/25patient seen on daily roundsno overnight reports from the nurseNo reports of N/V/D/C, fever, chilis, palpitatlons, chest paln, SOB or dizzinessVital sign were reviewedblood sugar remains elevated, increase glargine to 12U, continue monitorright hand x-ray negative, Doppler wlxcxyc10/19/25patient seen on daily roundsno ovemight reports from the nurseNo reports of N/V/D/C, fever, chills, palpitations, chest pain, SOB or dizzinessVital sign were reviewedreports right leg sore, PM& R notice and follow-up, per PM&R patient reports RLQ pain, noacute rebounding pain noticed, nurse reports patient's family has viral gastroenteritis, continuemonitorblood sugar remained elevated, increase glargine to 15Ulabs unremarkable, continue /20/25patient seen on daily roundsno overnight reports from the nurseNo reports of N/V/D/C, fever, chills, palpitations, chest pain, SOB or dizzinessVital sign were reviewedblood sugar remains elevated, increase glargine to 18U105/03/24patient seen on daily roundsno overnight reports from the nurseNo reports of N/V/D/C, fever, chills, palpitations, chest pain, SOB or dizzinessVital sign were reviewedblood sugar remained elevated, increase glargine to 21 ulabs unremarkable, continue vluxwyt49/22Seen and evaluated at bedside. No acute events overnight. Overall feeling well without complaints.Objective data reviewed. Blood glu remains elevated. Increase glargine to 25u qhs.03/05Seen and evaluated at bedside. No acute events overnight. Was complaining of pain around penilearea, did complain of dsyuria though was unclear. Nursing noting that patient complaining ofabdominal pain with tube feedings. Will obtain UA. Start pantoprazole. WIll plan to discuss TF withdietician. Objective data reviewed.03/06/25patient seen on daily roundsno overnight reports from the nurse.No reports of N/V/D/C, fever, chills, palpitations, chest pain, SOB or dizzinessVital sign were reviewedlabs unremarkable, UA negative, blood sugar remained elevated, Increase glargine 30 units,continue rgtyhou41/25/25patient seen on daily roundsno overnight reports from the nurseNo reports of N/V/D/C, fever, chills, palpitations, chest pain, SOB or dizzinessVital sign were reviewedblood sugar remaining elevated, increased glargine to 32 units, increases ssi to moderate dose03/08/25patient seen on daily roundsno overnight reports from the nurseNo reports of N/V/D/C, fever, chills, palpitations, chest pain, SOB or dizzinessVital sign were reviewedno new medical issues today03/09Seen and evaluated at bedside. No acute events overnight. Overall feeling well without complaints.Objective data reviewed.en and evaluated at bedside. No acute events overnight. Overall feeling well without complaints.Objective data reviewed.een and evaluated at bedside. No acute events overnight. Overall feeling well without complaints.Objective data reviewed.03/13/25patient seen on daily roundsno overnight reports from the nurseNo reports of N/V/D/C, fever, chills, palpitations, chest pain, SOB or dizzinessVital sign were reviewedBS remain elevated, increase ssi to high dose, cont monitor New meds: Baclofen, Gabapentin, Lactobacillus, PRN Lidocaine, PRN Melatonin, PRN Wadsworth, PRN Zofran, Pantoprazole, Miralax, SimethiconeAdjusted meds: Lantus, SSIStopped meds: Albuterol, Amlodipine 5 mg, Famotidine 20 mg, Renvela 800 mg TID, Tube Feeding (Nepro QID), Atorvastatin 80 mg, Baby ASA, Carvedilol 6.25 mg BID, CoQ10, Hydralazine 50 mg BID, PCP Dr. Meng Lucero in [facility].Sadie is daughter Carey. He also has a significant other Gabrielle Portillo and son Bhupinder. ---03/17/25Zac is seated in his w/c in the common area, aphasic but alert, does not appear to be in any distress and shakes his head no when I ask if he has pain. He attempts to answer my question about how many children he has, but ultimately is unable to come up with their names. He does nod when I prompt him that his daughter's name is Carey. I assist him in elevating his right arm, which is flaccid with a compression glove in place, as it is hanging dependently in his w/c. VSS. Staff are without concerns but would like clarification in regards to his g-tube flushes. He is receiving adequate intake by mouth. While instructions were not given, he was reportedly receiving 200 ml free water flushes BID at discharge. Will resume this and recommend they contact dietitian for proper evaluation. Request they document his intake closely so this can be monitored. Makenzie Laamr, KRISTI [address] [facility], [place], [address], [facility] [place] [place] - [facility] 03/17/2025 19:05:13
--- OUTSIDE RECORDS SUMMARY | 2025-03-25 11:24 | XMS_ITS | Continuity of Care Document ---
Author Organization [place] [facility] Address [address] [place] [address] Care Team Providers Care Apprentice Carpenter Name Role Phone [facility] FAX OTHER MENG CHEN Primary Care Provider [phone] Assessment Encounter Date Assessment Date Assessment LastModified by Organization Details LastModified Time 03/22/2025 03/22/2025 Another episode of crampy abdominal pain likely related to constipation. I discussed his bowel regimen with nursing. Nursing to contact neurology Dr. Lori Clay to see if he is supposed to be on baby ASA & Atorvastatin. He has been a few different places and this was stopped -- unclear why, when, by whom. If not having routine BMs, will schedule suppositories routinely. Adjust Lantus with goal to stop SSI. All current meds reviewed All recent laboratory data fully reviewed. Not available 03/22/2025 19:29:27 Plan of Treatment Reminders Order Date Submit [...] Modified By Organization Details Last Modified Time 03/22/2025 [id number] I spent 32 minutes providing care to the patient today. More than 50% of that time was spent in discussing the expected course of the disease, discussing prognosis, coordinating care and counseling of the patient/family. Not available 03/22/2025 19:30:15 Reason for Referral None Reported. Results Created Date Observation Date Name Description Value Unit Range Abnormal Flag Note LastModifiedBy Organization Detail LastModifiedTime 03/19/2003/18/2025 XR, abdom en No observ ation record ed. [facility] [address] [place], [address], 03/20/2025 10:26:15 03/19/20 25 03/18/2025 XR, abdom en No observ ation record ed. [facility] [address] [place], [address], 03/20/2025 10:26:31 Result Notes None recorded. Procedures Surgical History Date Name Laterality Status Provider Name and Address Organization Details Recorded Time 02/06/20 endoscopic placement of gastrostomy tube completed Makenzie Lamar, KRISTI [address] [place], [address], [facility] 03/17/2025 18:12:51 Imaging Results None [...] Not Available Not Available Vitals Date Recorded Body height Body temperature Heart rate Oxygen saturation Respiratory rate Systolic And Diastolic Provider Name and Address Organization Details Last Updated DateTime 187.96 cm 98.6 [degF] 65 /min 96 % 16 /min 110/70 mm[Hg] [place] [address] [place], [address], [facility] 19:24:14 Social History Question Answer Notes LastModified by Organizat ion Details LastModified Time Tobacco Smoking Status Unknown If Ever Smoked [place] [address] [place], [address], [facility] 03/17/2025 17:54:49 Do You Have [...] ICD10 Code Diagnosis IMO Codes Diagnosis Note [id number] Meme Adorno, [address] [address] [place] [address] 03/17/2025 09:44:15 03/25/2025 06:04:25 Hypertensive heart AND chronic kidney disease stage 3 [id number] 9100 I13.10 N18.30 [id number] Pt was taking Carvedilol , Chlorthali done, Felodipine , Hydralazin e, and Losartan as OP. All of these medication s were discontinu ed while inpatient. Stable off medication s.Continue to trend blood pressures, monitor lytes and renal function, and add meds as clinically indicated. Insulin tr eated type 2 diabetes mellitus 694847609 E11.9 Z79.4 564375 HgA1c 7.8% on 01/16/25. Pt was on Humulin 70/30 (30 u BID) prior to hospitaliz ation. This was changed to Lantus & SSI while inpatient. Continue Lantus & SSI. Goal is to adjust Lantus so can stop SSI.Monito r blood sugars and encourage LCS diet. Mixed hyperlipidemia 267 965693 E78.2 39387 SEE ABOVE... Hemiparesi s as late effect of cerebrovascular accident 765237820 I69.351 92310672 SEE ABOVE... Ischemic stroke 77483628 2 I63.9 114069 CTA head and neck on 01/16 showed [...] was placed on 02/05. However, while at [facility], he improved markedly and was transition ed away from using his PEG tube.Urszula nue Baclofen, Gabapentin , and PRN Lidocaine patch, APAP, & [place].Cont inue PT/OT/ST.R D to follow.F/U with Dr. Lori Clay (neurology ) in [place], [place] as OP. Aphasia 16667564 I69.230 3048283 SEE ABOVE... Dysphagia as a late effect of cerebrovascular accident 246032268 I69.615 2844841 SEE ABOVE... Aspiration pneumonitis 978841674 J69.0 2756 Suspected due to accidental large bolus TF while inpatient. Completed antibiotic regimen with resolution .Monitor respirator y symptoms for recurrence .ST to follow. Gastrostom y tube in situ 696860135 Z93.1 5050173159 SEE ABOVE... Acute kidney injury 1466 9001 N17.9 919496 Per records, baseline Cr is 2.68. Cr peaked at 4.3 while inpatient, improved with fluids and cessation of Chlorthali done.Monit or labs closely and avoid nephrotoxi ns.F/U with Dr. Destiny Wiseman (nephrolog y) in [place], [place] as OP. Hypernatremia 169053902 E87.0 22504 Resolved with fluids. Monitor level. Physical deconditioning 0598255786 9102 R53.81 096390 Related to age, recent inpatient stay, and multiple comorbidit ies. Continue PT/OT/ST and monitor progress. Discharge planning is unclear at this point. Will likely need placement. SW to follow. Anemia 241026764 D64.9 45351192 Hgb 9s. Consider checking anemia panel as do not see that this was done while inpatient. Continue to trend Hgb. Vitamin D deficiency 347 62204 E55.9 71045 Per history. Not on supplement . Monitor for need. Chronic constipation 236 209194 K59.09 092973 Stable. Continue Miralax. Additional cathartics available per standing orders. Chronic insomnia 6934742 04 F51.04 759061 Continue PRN Melatonin. Vomiting 400140106 R11.1 0 2914547888 Improved. Continue Simethicon e, Pantoprazo le, and PRN Zofran. Recurrent major depressive episodes 619059307 F33.9 16642569 Stable at present. Continue Fluoxetine . [id number] Meme Mohiniinocencio, DO [address] [address] [place] [address] 03/21/2025 10:06:25 03/25/2025 06:05:18 Acute constipation 318064946 K59.[address] imaging noted fecal impaction with stercoral colitis. Treated with cathartics while inpatient. Continue Miralax, Senna BID, & Simethicon e QID. Additional cathartics available per standing orders.Als o on Baclofen, Gabapentin , and PRN APAP & [place] for pain.If not having routine BMs, will schedule suppositor ies routinely. May need to add Lactulose, however pt is having frequent stools at this point. Right lowe r quadrant pain 196108519 R10.31 750514 SEE ABOVE... Ischemic stroke 13905725 2 I63.9 328936 CTA head and neck on 01/16 showed chronic appearing occlusive left ICA and diffusely diminished caliber of Left MCA territory vessels. He was outside the window for TPA. During attempted thrombecto my, found to have complete occluded Left ICA that could not be crossed despite multiple attempts. He is now with dense right hemiplegia , aphasia, and dysphagia. He originally followed his swallow evaluation . PEG tube was placed on 02/05. However, while at [facility], he improved markedly and was transition ed away from using his PEG tube.He was originally started on Atorvastat in 80 mg, but at some point after hospitaliz ation this was stopped. Prior to hospitaliz ation, he was taking Atorvastat in 40 mg daily, LDL was 30.Nursing to contact neurology Dr. Lori Clay to see if he is supposed to be on baby ASA & Atorvastat in. He has been a few different places and this was stopped -- unclear why, when, by whom.Urszula nue Baclofen, Gabapentin , and PRN APAP & [place].Cont inue PT/OT/ST.R D to follow.F/U with Dr. Lori Clay (neurology ) in [place] as OP. Hemiparesi s as late effect of cerebrovascular accident 151292468 I69.351 00322922 SEE ABOVE... Aphasia 12759125 I69.935 6416120 SEE ABOVE... Dysphagia as a late effect of cerebrovascular accident 346338817 I69.439 7325355 SEE ABOVE... Gastrostom y tube in situ 947654554 Z93.7 0766966720 SEE ABOVE... Aspiration pneumonitis 110787794 J69.0 2756 Suspected due to accidental large bolus TF while inpatient. Completed antibiotic regimen with resolution .Monitor respirator y symptoms for recurrence .ST to follow. Acute kidney injury 1466 9001 N17.9 470627 Per records, baseline Cr is 2.68. Cr peaked at 4.3 while inpatient, improved with fluids and cessation of Chlorthali done.Monit or labs closely and avoid nephrotoxi ns.Nursing to make sure that RD has evaluated and calculated proper fluid intake. Receiving 200 ml BID free water flushes per tube. Otherwise intake is PO.F/U with Dr. Destiny Wiseman (nephrolog y) in [place], [place] as OP. Hypertensi ve heart AND chronic kidney disease stage 3 [id number] 9100 I13.10 N18.30 05353074 Pt was taking Carvedilol , Chlorthali done, Felodipine , Hydralazin e, and Losartan as OP. All of these medication s were discontinu ed while inpatient. Stable off medication s.Continue to trend blood pressures, monitor lytes and renal function, and add meds as clinically indicated. Hypernatremia 330262830 E87.0 81570 Resolved with fluids. Monitor level. Insulin tr eated type 2 diabetes mellitus 133095226 E11.9 Z79.4 724655 HgA1c 7.8% on 01/16/25. Pt was on Humulin 70/30 (30 u BID) prior to hospitaliz ation. This was changed to Lantus & SSI while inpatient. HgA1c 8.3% on 03/20/25.Co ntinue Lantus & SSI. Goal is to adjust Lantus so can stop SSI.Monito r blood sugars and encourage LCS diet. Anemia 894654932 D64.9 96513975 Hgb 9s. Consider checking anemia panel as do not see that this was done while inpatient. Continue to trend Hgb. Mixed hyperlipidemia 267 972997 E78.2 49751 SEE ABOVE... Recurrent major depressive episodes 307115427 F33.9 92023352 Stable at present. Continue Fluoxetine . Chronic insomnia 4449696 04 F51.04 611562 Continue PRN Melatonin. Vomiting 821227434 R11.1 0 8468369598 Resolved. Continue Simethicon e, Pantoprazo le, and PRN Zofran.SEE ABOVE... Vitamin D deficiency 347 59323 E55.9 42659 Per history. Not on supplement . Monitor for need. Physical deconditioning 0533061692 9102 R53.81 646857 Related to age, recent inpatient stay, and multiple comorbidit ies.Contin ue PT/OT/ST and monitor progress. Discharge planning is unclear at this point. Will likely need placement. SW to follow. Nodule of lung 627170861 R91.[address] on 03/19 at [facility] incidental ly noted 15 mm right lower lobe pulmonary nodule, which may be infection or primary bronchogen ic carcinoma. Noncontras t chest CT is recommende d in 1-3 months. Interstiti al opacities in right middle lobe and right lower lobe, consistent with mild pulmonary edema versus chronic interstiti al lung disease. Small right pleural effusion. PCP to f/u as OP. Stercoral colitis 208837 001 K52.89 5038946673 SEE ABOVE... [id number] Vidal Barbosa MD [address] [address] 03/22/2025 19:23:43 03/22/2025 19:30:31 Right lower quadrant pain 750857263 R10.31 643148 SEE ABOVE... Acute constipation [address] imaging noted fecal impaction with stercoral colitis. Treated with cathartics while inpatient. Continue Miralax, Senna BID, & Simethicon e QID. Additional cathartics available per standing orders.Als o on Baclofen, Gabapentin , and PRN APAP & [place] for pain.If not having routine BMs, will schedule suppositor ies routinely. May need to add Lactulose, however pt is having frequent stools at this point.Limi t narcotic use. Yeah Stercoral colitis 731519 001 K52.89 6232429568 SEE ABOVE... Nodule of lung 681141463 R91.[address] on 03/19 at [facility] incidental ly noted 15 mm right lower lobe pulmonary nodule, which may be infection or primary bronchogen ic carcinoma. Noncontras t chest CT is recommende d in 1-3 months. Interstiti al opacities in right middle lobe and right lower lobe, consistent with mild pulmonary edema versus chronic interstiti al lung disease. Small right pleural effusion. PCP to f/u as OP. Ischemic stroke 19533980 2 I63.9 910764 CTA head and neck on 01/16 showed chronic appearing occlusive left ICA and diffusely diminished caliber of Left MCA territory vessels. He was outside the window for TPA. During attempted thrombecto my, found to have complete occluded Left ICA that could not be crossed despite multiple attempts. He is now with dense right hemiplegia , aphasia, and dysphagia. He originally followed his swallow evaluation . PEG tube was placed on 02/05. However, while at [facility], he improved markedly and was transition ed away from using his PEG tube.He was originally started on Atorvastat in 80 mg, but at some point after hospitaliz ation this was stopped. Prior to hospitaliz ation, he was taking Atorvastat in 40 mg daily, LDL was 30.Nursing to contact neurology Dr. Lori Clay to see if he is supposed to be on baby ASA & Atorvastat in. He has been a few different places and this was stopped -- unclear why, when, by whom.Urszula nue Baclofen, Gabapentin , and PRN APAP & [place].Cont inue PT/OT/ST.R D to follow.F/U with Dr. Lori Clay (neurology ) in [place] as OP. Hemiparesi s as late effect of cerebrovascular accident 641627760 I69.351 67992043 SEE ABOVE... Aphasia 45271337 I69.581 9736985 SEE ABOVE... Dysphagia as a late effect of cerebrovascular accident 722929825 I69.990 6746123 SEE ABOVE... Gastrostom y tube in situ 871023934 Z93.5 2340796908 SEE ABOVE... Aspiration pneumonitis 935909249 J69.0 2756 Suspected due to accidental large bolus TF while inpatient. Completed antibiotic regimen with resolution .Monitor respirator y symptoms for recurrence .ST to follow. Acute kidney injury 1466 9001 N17.9 629256 Per records, baseline Cr is 2.68. Cr peaked at 4.3 while inpatient, improved with fluids and cessation of Chlorthali done.Monit or labs closely and avoid nephrotoxi ns.Nursing to make sure that RD has evaluated and calculated proper fluid intake. Receiving 200 ml BID free water flushes per tube. Otherwise intake is PO.F/U with Dr. Destiny Wiseman (nephrolog y) in [place] as OP. Hypertensi ve heart AND chronic kidney disease stage 3 3915876718 9100 I13.10 N18.30 78656723 Pt was taking Carvedilol , Chlorthali done, Felodipine , Hydralazin e, and Losartan as OP. All of these medication s were discontinu ed while inpatient. Stable off medication s.Continue to trend blood pressures, monitor lytes and renal function, and add meds as clinically indicated. Hypernatremia 541123469 E87.0 58289 Resolved with fluids. Monitor level. Insulin tr eated type 2 diabetes mellitus 241487117 E11.9 Z79.4 261989 HgA1c 7.8% on 01/16/25. Pt was on Humulin 70/30 (30 u BID) prior to hospitaliz ation. This was changed to Lantus & SSI while inpatient. HgA1c 8.3% on 03/20/25.Co ntinue Lantus & SSI. Goal is to adjust Lantus so can stop SSI.Monito r blood sugars and encourage LCS diet. Anemia 142437709 D64.9 99422296 Hgb 9s. Consider checking anemia panel as do not see that this was done while inpatient. Continue to trend Hgb. Mixed hyperlipidemia 267 517252 E78.2 19310 SEE ABOVE... Recurrent major depressive episodes 580318276 F33.9 10957193 Stable at present. Continue Fluoxetine . Chronic insomnia 9869797 04 F51.04 172861 Continue PRN Melatonin. Vomiting 444456400 R11.1 0 9800195934 Resolved. Continue Simethicon e, Pantoprazo le, and PRN Zofran.SEE ABOVE... Vitamin D deficiency 347 83412 E55.9 84387 Per history. Not on supplement . Monitor for need. Physical deconditioning 3992075578 9102 R53.81 855059 Related to age, recent inpatient stay, and multiple comorbidit ies.Contin ue PT/OT/ST and monitor progress. Discharge planning is unclear at this point. Will likely need placement. SW to follow. Health Concerns Section Related Observation LastModified by Organization Detai ls LastModified Time None Recorded Concern Status LastModified by Organization Details LastModified Time None Recorded Payers Encounter Date Sequence Insurance Name Policy Number Policy Henning Covered Member ID Henning Member ID Guarantor Name 03/22/2025 1 [place] Zac Valenzuela [id number] Zac Valenzuela 03/22/2025 2 [employer] (MEDICARE SUPPLEMENT) Zac Valenzuela [id number] Zac Valenzuela Notes Date Note Type Note Provider Name and Address Organization Details Recorded Time 03/22/20 text/htm l 70-year-old male with PMH of HTN, DM-2, CKD-3, and HLD presenting for rehabilitation following inpatient stay at [facility] in [place], [place] from 01/16 to 02/08/25 for large LMCA acute CVA with [R] hemiparesis, aphasia, dysphagia s/p PEG tube placement, aspiration of tube feeding with pneumonitis, HUSSEIN on CKD-3/4, hypernatremia, weakness, and chronic medical conditions.It appears he was discharged to [facility] [place] from 02/08 to 02/23/25 (do not have records from this time), then transitioned to [facility] from 02/23 to 03/15/25. He has since transferred here for further rehabilitation. Per original [facility] Discharge Summary =Problem Based course:Zac Valenzuela is a 70-year-old male with the following history as recorded in [facility]:70 year old male with history of HTN, [...] initially admitted to ICU. Then downgraded on # Large LMCA acute stroke# left carotid occlusion# [...] on FluoxetineHypernatremiaAcute kidney injury on CKD Stage 3/4HypermagnesemiaHyperphosphate miaS/P Hypertonic saline for therapeutic Hypernatremia with goal [...] No concern for Mg being high- D/W Chief Digital Media Officer. TF will be changed to nepro and [...] decreased to <180. And subsequently Goal <140. Mcc BP goal <130/70- BP is acceptable on Coreg, Hydralazine and NorvascAnemia of CKD- Hb stable New meds: Amlodipine, Augmentin x 7 days, Colace, Famotidine, Prozac, Lantus, SSI, Senna, Renvela, Tube Feeding (Nepro QID) with 200 ml free water BID.Adjusted meds: NoneStopped meds: Astelin, Chlorthalidone, Felodipine, Flonase, Biotin, Humulin 70/30, Losartan, MVI, Fish Oil, Vit C Per [facility] latest records available =Zac Maharaj Nicolas is a 70 year old male with [...] Doppler ordered, PM&R follow-up for pain, continue cliofbm61/18/25patient seen on daily roundsno overnight reports from the nurseNo reports of N/V/D/C, fever, chilis, palpitatlons, chest paln, SOB or dizzinessVital sign were reviewedblood sugar remains elevated, increase glargine to 12U, continue monitorright hand x-ray negative, Doppler hkyjplc40/19/25patient seen on daily roundsno ovemight reports from the nurseNo reports of N/V/D/C, fever, chills, palpitations, chest pain, SOB or dizzinessVital sign were reviewedreports right leg sore, PM& R notice and follow-up, per PM&R patient reports RLQ pain, noacute rebounding pain noticed, nurse reports patient's family has viral gastroenteritis, continuemonitorblood sugar remained elevated, increase glargine to 15Ulabs unremarkable, continue efjpfof79/20/25patient seen on daily roundsno overnight reports from the nurseNo reports of N/V/D/C, fever, chills, palpitations, chest pain, SOB or dizzinessVital sign were reviewedblood sugar remains elevated, increase glargine to 18U105/03/24patient seen on daily roundsno overnight reports from the nurseNo reports of N/V/D/C, fever, chills, palpitations, chest pain, SOB or dizzinessVital sign were reviewedblood sugar remained elevated, increase glargine to 21 ulabs unremarkable, continue hefdvtw39/22Seen and evaluated at bedside. No acute events overnight. Overall feeling well without complaints.Objective data reviewed. Blood glu remains elevated. Increase glargine to 25u qhs.03/05Seen and evaluated at bedside. No acute events overnight. Was complaining of pain around penile area, did complain of dsyuria though was unclear. Nursing noting that patient complaining of abdominal pain with tube feedings. Will obtain UA. Start pantoprazole. WIll plan to discuss TF with air pollution control engineer. Objective data reviewed.03/06/25patient seen on daily roundsno overnight reports from the nurse.No reports of N/V/D/C, fever, chills, palpitations, chest pain, SOB or dizzinessVital sign were reviewedlabs unremarkable, UA negative, blood sugar remained elevated, Increase glargine 30 units,continue mulytto09/25/25patient seen on daily roundsno overnight reports from [...] Gabapentin, Lactobacillus, PRN Lidocaine, PRN Melatonin, PRN [place], PRN Zofran, Pantoprazole, Miralax, SimethiconeAdjusted meds: Lantus, SSIStopped meds: Albuterol, Amlodipine 5 mg, Famotidine 20 mg, Renvela 800 mg TID, Tube Feeding (Nepro QID), Atorvastatin 80 mg, Baby ASA, Carvedilol 6.25 mg BID, CoQ10, Hydralazine 50 mg BID, PCP Dr. Meng Lucero in [facility] Code.Sadie is daughter Carey. He also has [...] his intake closely so this can be monitored.---03/21/25Pt was recently readmitted to [facility] from 03/18 to 03/20/25. Per nursing notes on 03/18 = resident c/o 9/10 pain to RLQ despite having routine Gas X and having L BM. N.O. received for STAT KUB and bladder scan, if over 300 insert catheter and get UA.... KUB done. Awaiting results. Bladder scan done with 154ml residual. Patient's brief saturated with urine. Patient had two more bowel movements. One medium and one small soft BMs. At 9:45pm patient showed S/S of extreme pain to RLQ. Moaning, cursing and holding right side. Patient rated 10/10 pain to RLQ... send patient to [facility] for evaluation. KUB from facility received after pt left, read, No radiographic evidence for bowelobstruction or bowel perforation. Do incidentally note comment, Contrast noted in the lower left colon/rectum, suspect from prior MBS. He was admitted to [facility], where he was noted to have a fecal impaction with stercoral colitis.Per discharge summary =Hospital Course:The patient is a 70-year-old male with a complex medical history including stage 4 chronic kidneydisease, type 2 diabetes mellitus, hypertension, hyperlipidemia, and a 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 He was admitted from a rehabilitation facility due to lower abdominal pain and was found to have a fecal impaction on imaging. On arrival, he was alert but limited in communication due to expressive aphasia, able to respond to questions with head nods. He denied other systemic symptoms. Examination revealed lower abdominal tenderness without guarding or peritoneal signs, and a G-tube was present for medication and nutritional supplementation.Initial management included continuation of his home bowel regimen (polyethylene glycol, senna), and a soap suds enema was attempted without success. GI was consulted and recommended escalation of therapy with lactulose and linaclotide (Linzess), as well as dietary fiber supplementation.The patient's pain resolved following these interventions. Laboratory studies were notable for stable CKD (creatinine 2.27, BUN 47), mild anemia (Hgb 9.8), and hyperglycemia (glucose 173), with no evidence of infection or acute metabolic derangement. Imaging also revealed a 15 mm right lower lobe pulmonary nodule and mild interstitial opacities, but no acute pulmonary process.Throughout the admission, the patient remained hemodynamically stable, afebrile, and comfortable, with no recurrence of abdominal pain. His chronic conditions, including diabetes and CKD, were managed per protocol, and his home medications were continued with adjustments as needed. The patient's neurological deficits remained at his new baseline following his recent stroke. He tolerated regular diet after passing a swallow evaluation, and his G-tube was used as needed for medications.The hospital course was uncomplicated, with resolution of the acute fecal impaction and stabilization of his chronic comorbidities. Discussed the case with Gastroenterology who agrees with discharge stability at this time given the patient has had passage of bowel movements at this time without any abdominal pain/discomfort. Vitals and blood work remained stable. Plan for discharge to [facility] at this time. He was discharged with NNO. It does appear that there was an incidentally-noted 15 mm RLL pulmonary nodule, for which they recommended F/U CT chest as OP in 1-3 months.Today, I am requested to see Zac as he is complaining of RLQ pain once again in therapy. He is lying on the table in the therapy gym, is pinching the subcutaneous tissue of his RLQ and reporting pain. Due to dysphasia, he is not able to answer ROS questions except in the form of yes/no questions and his responses in this regard are inconsistent. He does agree that the pain is cramping but is not able to tell me any more about the pain (such as whether it travels, whether it feels deep or surface level (since he is specifically pinching the fat of his abdomen, not guarding deeper), etc.). He ate breakfast as usual without concerns for N/V noted by nursing. He has received his PRN [place] this morning and is having regular BMs since his return. VSS otherwise. Staff is without concerns beyond aforementioned. 03/22/25:Again patient had an episode of crampy right lower quadrant abdominal pain. This improved after he had a bowel movement. He did tolerate tube feeds without nausea and vomiting. [place] [id number] [facility], [place], [address], [place] [facility] 03/22/2025 19:30:29
--- OUTSIDE RECORDS SUMMARY | 2025-03-25 11:24 | XMS_ITS | Encounter Summary ---
Author Organization [facility] Address [facility] [place] [address] Care Team Providers Care Respiratory Scientist Name Role Phone Srinivasan Lucero MD Primary Care Provider [phone] Encounter Details Date Type Department Care Team (Late st Contact Info) Description 08/12/2023 Abstract [facility] [address] [place], [place] [address] Tadeo Clemons MD [address] [place] [address] Social History Tobacco Use Types Packs/Day Years Used Date Smoking Tobacco: Never Assessed Sex and Gender Information Value Date Recorded Sex Assigned at Male 05/13/2024 9:03 AM PREPRINT ANALYST Legal Sex Male 11:19 PM PREPRINT ANALYST Gender Identity Not on file Sexual Orientation Not on file documented as of this encounter Plan of Treatment Not on file documented as of this encounter Visit Diagnoses Not on filedocumented in this encounter Additional Health Concerns Infection Onset Date Last Indicated Resolved Time Respiratory Rule Out 01/24/2025 01/25/2025 025 3:42 PM CDT documented as of this encounter Care Teams Respiratory Scientist Relationship Specialty Start Date End Date Srinivasan Lucero MD [address] [place] [address] PCP - General INTERNAL MEDICINE 06/11/22 documented as of this encounter
--- OUTSIDE RECORDS SUMMARY | 2025-03-25 11:24 | XMS_ITS | Data Portability ---
Author Organization [employer] [facility], Main Office Address [address] [place] [address] Care Team Providers Care Automotive Manufacturer Name Role Phone P [facility] [employer] OTHER MENG CHEN Primary Care Provider Assessment Encounter Date Assessment Date Assessment LastModified by Organization Details LastModified Time 03/17/2025 03/17/2025 Will need to clarify with Dr. Lori Clay (neurology) in [place], [place] if pt is supposed to be on baby ASA & Atorvastatin -- unclear why/when these were stopped. Consider d/c Lactobacillus & PRN Gabapentin. [email or web address] Not available 03/17/2025 18:48:31 03/21/2025 03/21/2025 D/C PRN Gabapentin. Nursing to make sure that RD has evaluated and calculated proper fluid intake. Nursing to contact neurology Dr. Lori Clay to see if he is supposed to be on baby ASA & Atorvastatin. He has been a few different places and this was stopped -- unclear why, when, by whom. If not having routine BMs, will schedule suppositories routinely. Adjust Lantus with goal to stop SSI. Not available 03/22/2025 08:27:09 03/22/2025 03/22/2025 Another episode of crampy abdominal [...] data fully reviewed. Not available 03/22/2025 19:29:27 03/23/2025 03/23/2025 Nursing to contact neurology Dr. Lori Clay to see if he is supposed to be on baby ASA & Atorvastatin. Adjust Lantus with goal to stop SSI. Consider checking anemia panel with next lab draw. elvin Not available 03/23/2025 20:39:33 Plan of Treatment Reminders Order Date Submit [...] By Organization Details Last Modified Time 03/17/2025 [id number] I spent 60 minutes providing care to the patient today. More than 50% of that time was spent in discussing the expected course of the disease, discussing prognosis, coordinating care and counseling of the patient/family. Not available 03/17/2025 19:05:01 03/21/2025 [id number] I spent 55 minutes providing care to the patient today. More than 50% of that time was spent in discussing the expected course of the disease, discussing prognosis, coordinating care and counseling of the patient/family. Not available 03/22/2025 08:27:37 03/22/2025 [id number] I spent 32 minutes providing care to the patient today. More than 50% of that time was spent in discussing the expected course of the disease, discussing prognosis, coordinating care and counseling of the patient/family. Not available 03/22/2025 19:30:15 03/23/2025 [id number] I spent 37 minutes providing care to the patient today. More than 50% of that time was spent in discussing the expected course of the disease, discussing prognosis, coordinating care and counseling of the patient/family. Not available 03/23/2025 20:39:38 Reason for Referral None Reported. Results Created Date Observation Date Name Description Value Unit Range Abnormal Flag Note LastModifiedBy Organization Detail LastModifiedTime 03/19/20 25 03/18/2025 XR, abdom en No observ ation record ed. elvin [place] [address], [place], [address], 03/20/2025 10:26:15 03/19/20 25 03/18/2025 XR, abdom en No observ ation record ed. elvin [address] [place], [address], 03/20/2025 10:26:31 Result Notes None recorded. Procedures Surgical History Date Name Laterality Status Provider Name and Address Organization Details Recorded Time 02/06/20 endoscopic placement of gastrostomy tube completed Makenzie Lamar, KRISTI [address] [place], [address], [facility] 03/17/2025 18:12:51 Imaging Results None [...] and Address Organization Details Last Updated DateTime 5 80 /min 97.6 [degF] 18 /min 94 % 42316.0 8 g 27.6 kg/m2 187.96 cm 122/74 mm[Hg] [place] [address] [place], [address] [facility] [employer] [facility] 5 16:21:15 Date Recorded Body height Heart rate Body temperature Respiratory rate Oxygen saturation Body mass index (BMI) Body weight Systolic And Diastolic Provider Name and Address Organization Details Last Updated DateTime 5 187.96 cm 57 /min 97.9 [degF] 18 /min 98 % 27 kg/m2 40750.8 3 g 125/80 mm[Hg] [place] [address] [place], [address] [place] [address] 5 07:52:38 Date Recorded Body height Body temperature Heart rate Oxygen saturation Respiratory rate Systolic And Diastolic Provider Name and Address Organization Details Last Updated DateTime 5 187.96 cm 98.6 [degF] 65 /min 96 % 16 /min 110/70 mm[Hg] [place] [address] [place], [address], [facility] 19:24:14 Date Recorded Body height Heart rate Body temperature Respiratory rate Oxygen saturation Body mass index (BMI) Body weight Systolic And Diastolic Provider Name and Address Organization Details Last Updated DateTime 187.96 cm 68 /min 97.9 [degF] 18 /min 96 % 27 kg/m2 99200.5 5 g 149/75 mm[Hg] [place] [address] [place], [address], [facility] 20:29:10 Social History Question Answer Notes LastModified by Organizat ion Details LastModified Time Tobacco Smoking Status Unknown If Ever Smoked possible [place] [address] [place], [address], [facility] 03/17/2025 17:54:49 Do You Have [...] ICD10 Code Diagnosis IMO Codes Diagnosis Note [id number] Meme Adorno [address] [address] 03/17/2025 09:44:15 03/25/2025 06:04:25 Hypertensive heart AND chronic kidney disease stage 3 8890008160 9100 I13.10 N18.30 [id number] Pt was taking Carvedilol , Chlorthali done, Felodipine , Hydralazin e, and Losartan as OP. All of these medication s were discontinu ed while inpatient. Stable off medication s.Continue to trend blood pressures, monitor lytes and renal function, and add meds as clinically indicated. Insulin tr eated type 2 diabetes mellitus 549468567 E11.9 Z79.4 305434 HgA1c 7.8% on 01/16/25. Pt was on Humulin 70/30 (30 u BID) prior to hospitaliz ation. This was changed to Lantus & SSI while inpatient. Continue Lantus & SSI. Goal is to adjust Lantus so can stop SSI.Monito r blood sugars and encourage LCS diet. Mixed hyperlipidemia 267 293608 E78.2 84458 SEE ABOVE... Hemiparesi s as late effect of cerebrovascular accident 475095584 I69.351 92937305 SEE ABOVE... Ischemic stroke 86598297 2 I63.9 542994 CTA head and neck on 01/16 showed [...] was placed on 02/05. However, while at [facility], he improved markedly and was transition ed away from using his PEG tube.Urszula nue Baclofen, Gabapentin , and PRN Lidocaine patch, APAP, & [place].Cont inue PT/OT/ST.R D to follow.F/U with Dr. Lori Clay (neurology ) in [place] as OP. Aphasia 57555208 I69.203 0334294 SEE ABOVE... Dysphagia as a late effect of cerebrovascular accident 036716586 I69.803 0650277 SEE ABOVE... Aspiration pneumonitis 863435940 J69.0 2756 Suspected due to accidental large bolus TF while inpatient. Completed antibiotic regimen with resolution .Monitor respirator y symptoms for recurrence .ST to follow. Gastrostom y tube in situ 702918018 Z93.9 3565260246 SEE ABOVE... Acute kidney injury 1466 9001 N17.9 937816 Per records, baseline Cr is 2.68. Cr peaked at 4.3 while inpatient, improved with fluids and cessation of Chlorthali done.Monit or labs closely and avoid nephrotoxi ns.F/U with Dr. Destiny Wiseman (nephrolog y) in [place], [place] as OP. Hypernatremia 334699174 E87.0 82022 Resolved with fluids. Monitor level. Physical deconditioning 2914159169 9102 R53.81 204531 Related to age, recent inpatient stay, and multiple comorbidit ies. Continue PT/OT/ST and monitor progress. Discharge planning is unclear at this point. Will likely need placement. SW to follow. Anemia 884319813 D64.9 58374108 Hgb 9s. Consider checking anemia panel as do not see that this was done while inpatient. Continue to trend Hgb. Vitamin D deficiency 347 12167 E55.9 84775 Per history. Not on supplement . Monitor for need. Chronic constipation 236 117730 K59.09 834630 Stable. Continue Miralax. Additional cathartics available per standing orders. Chronic insomnia 2061532 04 F51.04 770430 Continue PRN Melatonin. Vomiting 928920814 R11.1 0 6188419971 Improved. Continue Simethicon e, Pantoprazo le, and PRN Zofran. Recurrent major depressive episodes 604821390 F33.9 68963509 Stable at present. Continue Fluoxetine . [id number] Meme Adorno DO [address] [address] 03/21/2025 10:06:25 03/25/2025 06:05:18 Acute constipation 504926172 K59.[address] imaging noted fecal impaction with stercoral colitis. Treated with cathartics while inpatient. Continue Miralax, Senna BID, & Simethicon e QID. Additional cathartics available per standing orders.Als o on Baclofen, Gabapentin , and PRN APAP & [place] for pain.If not having routine BMs, will schedule suppositor ies routinely. May need to add Lactulose, however pt is having frequent stools at this point. Right lowe r quadrant pain 952975812 R10.31 886384 SEE ABOVE... Ischemic stroke 77334652 2 I63.9 019621 CTA head and neck on 01/16 showed [...] was placed on 02/05. However, [facility], he improved markedly and was transition [...] Baclofen, Gabapentin , and PRN APAP & [place].Cont inue PT/OT/ST.R D to follow.F/U with Dr. Lori Clay (neurology ) in [place] as OP. Hemiparesi s as late effect of cerebrovascular accident 838655589 I69.351 50669257 SEE ABOVE... Aphasia 60987075 I69.711 0887595 SEE ABOVE... Dysphagia as a late effect of cerebrovascular accident 684123960 I69.940 3991354 SEE ABOVE... Gastrostom y tube in situ 850934323 Z93.8 9869701773 SEE ABOVE... Aspiration pneumonitis 986017898 J69.0 2756 Suspected due to accidental large bolus TF while inpatient. Completed antibiotic regimen with resolution .Monitor respirator y symptoms for recurrence .ST to follow. Acute kidney injury 1466 9001 N17.9 244751 Per records, baseline Cr is 2.68. Cr peaked at 4.3 while inpatient, improved with fluids and cessation of Chlorthali done.Monit or labs closely and avoid nephrotoxi ns.Nursing to make sure that RD has evaluated and calculated proper fluid intake. Receiving 200 ml BID free water flushes per tube. Otherwise intake is PO.F/U with Dr. Destiny Wiseman (nephrolog y) in [place] as OP. Hypertensi ve heart AND chronic kidney disease stage 3 7341935944 9100 I13.10 N18.30 00512106 Pt was taking Carvedilol , Chlorthali done, Felodipine , Hydralazin e, and Losartan as OP. All of these medication s were discontinu ed while inpatient. Stable off medication s.Continue to trend blood pressures, monitor lytes and renal function, and add meds as clinically indicated. Hypernatremia 307684760 E87.0 63495 Resolved with fluids. Monitor level. Insulin tr eated type 2 diabetes mellitus 783160153 E11.9 Z79.4 075762 HgA1c 7.8% on 01/16/25. Pt was on Humulin 70/30 (30 u BID) prior to hospitaliz ation. This was changed to Lantus & SSI while inpatient. HgA1c 8.3% on 03/20/25.Co ntinue Lantus & SSI. Goal is to adjust Lantus so can stop SSI.Monito r blood sugars and encourage LCS diet. Anemia 734807136 D64.9 84511026 Hgb 9s. Consider checking anemia panel as do not see that this was done while inpatient. Continue to trend Hgb. Mixed hyperlipidemia 267 749070 E78.2 97463 SEE ABOVE... Recurrent major depressive episodes 501791841 F33.9 02742336 Stable at present. Continue Fluoxetine . Chronic insomnia 7769910 04 F51.04 625196 Continue PRN Melatonin. Vomiting 437968334 R11.1 0 9166255152 Resolved. Continue Simethicon e, Pantoprazo le, and PRN Zofran.SEE ABOVE... Vitamin D deficiency 347 70730 E55.9 85209 Per history. Not on supplement . Monitor for need. Physical deconditioning 4963209425 9102 R53.81 357720 Related to age, recent inpatient stay, and multiple comorbidit ies.Contin ue PT/OT/ST and monitor progress. Discharge planning is unclear at this point. Will likely need placement. SW to follow. Nodule of lung 217067421 R91.[address] on 03/19 at [facility] noted 15 mm right lower lobe pulmonary nodule, which may be infection or primary bronchogen ic carcinoma. Noncontras t chest CT is recommende d in 1-3 months. Interstiti al opacities in right middle lobe and right lower lobe, consistent with mild pulmonary edema versus chronic interstiti al lung disease. Small right pleural effusion. PCP to f/u as OP. Stercoral colitis 028269 001 K52.89 6885367524 SEE ABOVE... [id number] Vidal Barbosa MD [facility] [address] [place] [address] 03/22/2025 19:23:43 03/22/2025 19:30:31 Right lower quadrant pain 708037088 R10.31 492158 SEE ABOVE... Acute constipation [address] imaging noted fecal impaction with stercoral colitis. Treated with cathartics while inpatient. Continue Miralax, Senna BID, & Simethicon e QID. Additional cathartics available per standing orders.Als o on Baclofen, Gabapentin , and PRN APAP & [place] for pain.If not having routine BMs, will schedule suppositor ies routinely. May need to add Lactulose, however pt is having frequent stools at this point.Limi t narcotic use. [place] Stercoral colitis 037716 001 K52.89 0904692906 SEE ABOVE... Nodule of lung 967751525 R91.[address] on 03/19 at [facility] incidental ly noted 15 mm right lower lobe pulmonary nodule, which may be infection or primary bronchogen ic carcinoma. Noncontras t chest CT is recommende d in 1-3 months. Interstiti al opacities in right middle lobe and right lower lobe, consistent with mild pulmonary edema versus chronic interstiti al lung disease. Small right pleural effusion. PCP to f/u as OP. Ischemic stroke 07676168 2 I63.9 606190 CTA head and neck on 01/16 showed [...] was placed on 02/05. However, while at [facility], he improved markedly and was transition [...] Baclofen, Gabapentin , and PRN APAP & [place].Cont inue PT/OT/ST.R D to follow.F/U with Dr. Lori Clay (neurology ) in [place] as OP. Hemiparesi s as late effect of cerebrovascular accident 574682359 I69.351 06596447 SEE ABOVE... Aphasia 84559660 I69.748 0584295 SEE ABOVE... Dysphagia as a late effect of cerebrovascular accident 153362362 I69.370 0184454 SEE ABOVE... Gastrostom y tube in situ 547017037 Z93.6 0929738579 SEE ABOVE... Aspiration pneumonitis 349446136 J69.0 2756 Suspected due to accidental large bolus TF while inpatient. Completed antibiotic regimen with resolution .Monitor respirator y symptoms for recurrence .ST to follow. Acute kidney injury 1466 9001 N17.9 603328 Per records, baseline Cr is 2.68. Cr peaked at 4.3 while inpatient, improved with fluids and cessation of Chlorthali done.Monit or labs closely and avoid nephrotoxi ns.Nursing to make sure that RD has evaluated and calculated proper fluid intake. Receiving 200 ml BID free water flushes per tube. Otherwise intake is PO.F/U with Dr. Destiny Wiseman (nephrolog y) in [place] as OP. Hypertensi ve heart AND chronic kidney disease stage 3 9096225521 9100 I13.10 N18.30 37114619 Pt was taking Carvedilol , Chlorthali done, Felodipine , Hydralazin e, and Losartan as OP. All of these medication s were discontinu ed while inpatient. Stable off medication s.Continue to trend blood pressures, monitor lytes and renal function, and add meds as clinically indicated. Hypernatremia 621897173 E87.0 20488 Resolved with fluids. Monitor level. Insulin tr eated type 2 diabetes mellitus 556009748 E11.9 Z79.4 224809 HgA1c 7.8% on 01/16/25. Pt was on Humulin 70/30 (30 u BID) prior to hospitaliz ation. This was changed to Lantus & SSI while inpatient. HgA1c 8.3% on 03/20/25.Co ntinue Lantus & SSI. Goal is to adjust Lantus so can stop SSI.Monito r blood sugars and encourage LCS diet. Anemia 719888973 D64.9 25317889 Hgb 9s. Consider checking anemia panel as do not see that this was done while inpatient. Continue to trend Hgb. Mixed hyperlipidemia 267 984799 E78.2 74766 SEE ABOVE... Recurrent major depressive episodes 535240278 F33.9 99161756 Stable at present. Continue Fluoxetine . Chronic insomnia 3869604 04 F51.04 331779 Continue PRN Melatonin. Vomiting 782289337 R11.1 0 8523549022 Resolved. Continue Simethicon e, Pantoprazo le, and PRN Zofran.SEE ABOVE... Vitamin D deficiency 347 82845 E55.9 23641 Per history. Not on supplement . Monitor for need. Physical deconditioning 6054972171 9102 R53.81 715783 Related to age, recent inpatient stay, and multiple comorbidit ies.Contin ue PT/OT/ST and monitor progress. Discharge planning is unclear at this point. Will likely need placement. SW to follow. [id number] Meme Adorno, [address] [address] 03/23/2025 13:28:00 03/23/2025 20:39:53 Acute constipation 766271562 K59.[address] imaging noted fecal impaction with stercoral colitis. Treated with cathartics while inpatient. Continue Miralax, Senna BID, & Simethicon e QID. Additional cathartics available per standing orders. Pt is having regular BMs 1-2 times a day.Also on Baclofen, Gabapentin , and PRN APAP & [place] for pain.Limit narcotic use. Stercoral colitis 663703 001 K52.89 6832312979 SEE ABOVE... Right lowe r quadrant pain 328053890 R10.31 210390 SEE ABOVE... Nodule of lung 449621504 R91.[address] on 03/19 at [facility] incidental ly noted 15 mm right lower lobe pulmonary nodule, which may be infection or primary bronchogen ic carcinoma. Noncontras t chest CT is recommende d in 1-3 months. Interstiti al opacities in right middle lobe and right lower lobe, consistent with mild pulmonary edema versus chronic interstiti al lung disease. Small right pleural effusion. PCP to f/u as OP. Ischemic stroke 68553984 2 I63.9 923509 CTA head and neck on 01/16 showed [...] was placed on 02/05. However, while at [facility], he improved markedly and was transition [...] Baclofen, Gabapentin , and PRN APAP & [place].Cont inue PT/OT/ST.R D to follow.F/U with Dr. Lori Clay (neurology ) in [place] as OP. Hemiparesi s as late effect of cerebrovascular accident 242461009 I69.351 16166973 SEE ABOVE... Aphasia 72143413 I69.546 0535942 SEE ABOVE... Dysphagia as a late effect of cerebrovascular accident 476658554 I69.078 5820248 SEE ABOVE... Gastrostom y tube in situ 462796370 Z93.3 8010463997 SEE ABOVE... Aspiration pneumonitis 558791816 J69.0 2756 Suspected due to accidental large bolus TF while inpatient. Completed antibiotic regimen with resolution .Monitor respirator y symptoms for recurrence .ST to follow. Acute kidney injury 1466 9001 N17.9 285741 Per records, baseline Cr is 2.68. Cr peaked at 4.3 while inpatient, improved with fluids and cessation of Chlorthali done.Monit or labs closely and avoid nephrotoxi ns.Nursing to make sure that RD has evaluated and calculated proper fluid intake. Receiving 200 ml BID free water flushes per tube. Otherwise intake is PO.F/U with Dr. Destiny Wiseman (nephrolog y) in [place] as OP. Hypertensi ve heart AND chronic kidney disease stage 3 3595432060 9100 I13.10 N18.30 36134712 Pt was taking Carvedilol , Chlorthali done, Felodipine , Hydralazin e, and Losartan as OP. All of these medication s were discontinu ed while inpatient. Stable off medication s.Continue to trend blood pressures, monitor lytes and renal function, and add meds as clinically indicated. Hypernatremia 342357199 E87.0 54650 Resolved with fluids. Monitor level. Insulin tr eated type 2 diabetes mellitus 187310353 E11.9 Z79.4 064407 HgA1c 7.8% on 01/16/25. Pt was on Humulin 70/30 (30 u BID) prior to hospitaliz ation. This was changed to Lantus & SSI while inpatient. HgA1c 8.3% on 03/20/25.Co ntinue Lantus & SSI. Goal is to adjust Lantus so can stop SSI.Monito r blood sugars and encourage LCS diet. Anemia 276384480 D64.9 99111073 Hgb 9s. Consider checking anemia panel as do not see that this was done while inpatient. Continue to trend Hgb. Mixed hyperlipidemia 267 386530 E78.2 72887 SEE ABOVE... Recurrent major depressive episodes 935375104 F33.9 03530835 Stable at present. Continue Fluoxetine . Chronic insomnia 2929235 04 F51.04 712901 Continue PRN Melatonin. Vomiting 731301696 R11.1 0 6818981596 Resolved. Continue Simethicon e, Pantoprazo le, and PRN Zofran.SEE ABOVE... Vitamin D deficiency 347 91872 E55.9 79989 Per history. Not on supplement . Monitor for need. Physical deconditioning 1989081475 9102 R53.81 570301 Related to age, recent inpatient stay, and multiple comorbidit ies.Contin ue PT/OT/ST and monitor progress. Discharge planning is unclear at this point. Will likely need placement. SW to follow. Health Concerns Section Related Observation LastModified by Organization Detai ls LastModified Time None Recorded Concern Status LastModified by Organization Details LastModified Time None Recorded Advance Directives Directive N: Payers Insurance Date Sequence Insurance Name Policy Number Policy [place] Covered Member ID [place] Member ID Guarantor Name 03/17/2025 1 [employer] (MEDICARE SUPPLEMENT) Zac Valenzuela [id number] Zac Valenzuela 03/22/2025 1 [place] Zac Valenzuela [id number] Zac Valenzuela 03/22/2025 2 [employer]URANCE [employer] (MEDICARE SUPPLEMENT) Zac Valenzuela [id number] Zac Valenzuela 03/17/2025 1 [employer] (MEDICARE SUPPLEMENT) Zac Valenzuela [id number] Zac Valenzuela Notes Date Note Type Note Provider Name and Address Organization Details Recorded Time 03/17/20 25 text/htm l 70-year-old male with PMH of HTN, DM-2, CKD-3, and HLD presenting for rehabilitation following inpatient stay at [facility] in [place], [place] from 01/16 to 02/08/25 for large LMCA acute CVA with [R] hemiparesis, aphasia, dysphagia s/p PEG tube placement, aspiration of tube feeding with pneumonitis, HUSSEIN on CKD-3/4, hypernatremia, weakness, and chronic medical conditions.It appears he was discharged to [facility] from 02/08 to 02/23/25 (do not have records from this time), then transitioned to [facility] from 02/23 to 03/15/25. He has since transferred here for further rehabilitation. Per original [facility] Discharge Summary =Problem Based course:Zac Valenzuela is a 70-year-old male with the following history as recorded in [facility]:70 year old male with history of HTN, [...] No concern for Mg being high- D/W Mid Level Clinician. TF will be changed to nepro and [...] decreased to <180. And subsequently Goal <140. Skilled Nursing BP goal <130/70- BP is acceptable on Coreg, Hydralazine and NorvascAnemia of CKD- Hb stable New meds: Amlodipine, Augmentin x 7 days, Colace, Famotidine, Prozac, Lantus, SSI, Senna, Renvela, Tube Feeding (Nepro QID) with 200 ml free water BID.Adjusted meds: NoneStopped meds: Astelin, Chlorthalidone, Felodipine, Flonase, Biotin, Humulin 70/30, Losartan, MVI, Fish Oil, Vit C Per [facility]'s latest records available =Zac Maharaj [...] Doppler ordered, PM&R follow-up for pain, continue /18/25patient seen on daily roundsno overnight reports from the nurseNo reports of N/V/D/C, fever, chilis, palpitatlons, chest paln, SOB or dizzinessVital sign were reviewedblood sugar remains elevated, increase glargine to 12U, continue monitorright hand x-ray negative, Doppler waznpjg45/19/25patient seen on daily roundsno ovemight reports from the nurseNo reports of N/V/D/C, fever, chills, palpitations, chest pain, SOB or dizzinessVital sign were reviewedreports right leg sore, PM& R notice and follow-up, per PM&R patient reports RLQ pain, noacute rebounding pain noticed, nurse reports patient's family has viral gastroenteritis, continuemonitorblood sugar remained elevated, increase glargine to 15Ulabs unremarkable, continue srqafcu08/20/25patient seen on daily roundsno overnight reports from the nurseNo reports of N/V/D/C, fever, chills, palpitations, chest pain, SOB or dizzinessVital sign were reviewedblood sugar remains elevated, increase glargine to 18U105/03/24patient seen on daily roundsno overnight reports from the nurseNo reports of N/V/D/C, fever, chills, palpitations, chest pain, SOB or dizzinessVital sign were reviewedblood sugar remained elevated, increase glargine to 21 ulabs unremarkable, continue agjsuei53/22Seen and evaluated at bedside. No acute events overnight. Overall feeling well without complaints.Objective data reviewed. Blood glu remains elevated. Increase glargine to 25u qhs. and evaluated at bedside. No acute events [...] sugar remained elevated, Increase glargine 30 units,continue [id number]/25/25patient seen on daily roundsno overnight reports from the nurseNo reports of N/V/D/C, fever, chills, palpitations, chest pain, SOB or dizzinessVital sign were reviewedblood sugar remaining elevated, increased glargine to 32 units, increases ssi to moderate dose03/08/25patient seen on daily roundsno overnight reports from the nurseNo reports of N/V/D/C, fever, chills, palpitations, chest pain, SOB or dizzinessVital sign were reviewedno new medical issues today and evaluated at bedside. No acute events overnight. Overall feeling well without complaints.Objective data reviewed. and evaluated at bedside. No acute events overnight. Overall feeling well without complaints.Objective data reviewed. and evaluated at bedside. No acute events overnight. Overall feeling well without complaints.Objective data reviewed.03/13/25patient seen on daily roundsno overnight reports from the nurseNo reports of N/V/D/C, fever, chills, palpitations, chest pain, SOB or dizzinessVital sign were reviewedBS remain elevated, increase ssi to high dose, cont monitor New meds: Baclofen, Gabapentin, Lactobacillus, PRN Lidocaine, PRN Melatonin, PRN [place], PRN Zofran, Pantoprazole, Miralax, SimethiconeAdjusted meds: Lantus, SSIStopped meds: Albuterol, Amlodipine 5 mg, Famotidine 20 mg, Renvela 800 mg TID, Tube Feeding (Nepro QID), Atorvastatin 80 mg, Baby ASA, Carvedilol 6.25 mg BID, CoQ10, Hydralazine 50 mg BID, PCP Dr. Meng Lucero in [facility] Code.Sadie is daughter Carey. He also has a significant other Gabrielle Portillo and son Bhupinder. ---03/17/25Daalvaro is seated in his w/c in the [...] closely so this can be monitored. 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 He has since transferred here for further rehabilitation. Per original [facility] Discharge Summary =Problem Based course:Zac Valenzuela is a 70-year-old male with the following history as recorded in [facility]:70 year old male with history of HTN, [...] No concern for Mg being high- D/W Mid Level Clinician. TF will be changed to nepro and [...] decreased to <180. And subsequently Goal <140. Skilled Nursing BP goal <130/70- BP is acceptable on Coreg, Hydralazine and NorvascAnemia of CKD- Hb stable New meds: Amlodipine, Augmentin x 7 days, Colace, Famotidine, Prozac, Lantus, SSI, Senna, Renvela, Tube Feeding (Nepro QID) with 200 ml free water BID.Adjusted meds: NoneStopped meds: Astelin, Chlorthalidone, Felodipine, Flonase, Biotin, Humulin 70/30, Losartan, MVI, Fish Oil, Vit C Per [facility]'s latest records available =Zac Valenzuela [...] Doppler ordered, PM&R follow-up for pain, continue qkqdyoi45/18/25patient seen on daily roundsno overnight reports from the nurseNo reports of N/V/D/C, fever, chilis, palpitatlons, chest paln, SOB or dizzinessVital sign were reviewedblood sugar remains elevated, increase glargine to 12U, continue monitorright hand x-ray negative, Doppler ganwjbr28/19/25patient seen on daily roundsno ovemight reports from [...] increase glargine to 21 ulabs unremarkable, continue xytafun50/22Se and evaluated at bedside. No acute events [...] pantoprazole. WIll plan to discuss TF with wildlife removal specialist. Objective data reviewed.03/06/25patient seen on daily roundsno overnight reports from the nurse.No reports of N/V/D/C, fever, chills, palpitations, chest pain, SOB or dizzinessVital sign were reviewedlabs unremarkable, UA negative, blood sugar remained elevated, Increase glargine 30 units,continue iruxndg59/25/25patient seen on daily roundsno overnight reports from [...] overnight. Overall feeling well without complaints.Objective data reviewed.03/10Seen and evaluated at bedside. No acute events [...] Gabapentin, Lactobacillus, PRN Lidocaine, PRN Melatonin, PRN [place], PRN Zofran, Pantoprazole, Miralax, SimethiconeAdjusted meds: Lantus, SSIStopped meds: Albuterol, Amlodipine 5 mg, Famotidine 20 mg, Renvela 800 mg TID, Tube Feeding (Nepro QID), Atorvastatin 80 mg, Baby ASA, Carvedilol 6.25 mg BID, CoQ10, Hydralazine 50 mg BID, PCP Dr. Meng Lucero in [facility] Code.Sadie is daughter Carey. He also has a significant other Gabrielle Portillo and son Bhupinedr. ---03/17/25Zac is seated in his w/c in [...] can be monitored.---03/21/25Pt was recently readmitted to [facility] from 03/18 to 03/20/25. Per nursing notes [...] 10/10 pain to RLQ... send patient to [facility] for evaluation. KUB from facility received after pt left, read, No radiographic evidence for bowelobstruction or bowel perforation. Do incidentally note comment, Contrast noted in the lower left colon/rectum, suspect from prior MBS. He was admitted to [facility], where he was noted to have a [...] work remained stable. Plan for discharge to [place] at this time. He was discharged with [...] by nursing. He has received his PRN [place] this morning and is having regular BMs since his return. VSS otherwise. Staff is without concerns beyond aforementioned. 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 He has since transferred here for further rehabilitation. Per original [facility] Discharge Summary =Problem Based course:Zac Valenzuela is a 70-year-old male with the following history as recorded in [facility]:70 year old male with history of HTN, [...] No concern for Mg being high- D/W Mid Level Clinician. TF will be changed to nepro and [...] decreased to <180. And subsequently Goal <140. Machine Brush Maker BP goal <130/70- BP is acceptable on Coreg, Hydralazine and NorvascAnemia of CKD- Hb stable New meds: Amlodipine, Augmentin x 7 days, Colace, Famotidine, Prozac, Lantus, SSI, Senna, Renvela, Tube Feeding (Nepro QID) with 200 ml free water BID.Adjusted meds: NoneStopped meds: Astelin, Chlorthalidone, Felodipine, Flonase, Biotin, Humulin 70/30, Losartan, MVI, Fish Oil, Vit C Per [facility]'s latest records available =Zac Valenzuela [...] Doppler ordered, PM&R follow-up for pain, continue [id number]/18/25patient seen on daily roundsno overnight reports from the nurseNo reports of N/V/D/C, fever, chilis, palpitatlons, chest paln, SOB or dizzinessVital sign were reviewedblood sugar remains elevated, increase glargine to 12U, continue monitorright hand x-ray negative, Doppler rawezul83/19/25patient seen on daily roundsno ovemight reports from the nurseNo reports of N/V/D/C, fever, chills, palpitations, chest pain, SOB or dizzinessVital sign were reviewedreports right leg sore, PM& R notice and follow-up, per PM&R patient reports RLQ pain, noacute rebounding pain noticed, nurse reports patient's family has viral gastroenteritis, continuemonitorblood sugar remained elevated, increase glargine to 15Ulabs unremarkable, continue [id number]/20/25patient seen on daily roundsno overnight reports from the nurseNo reports of N/V/D/C, fever, chills, palpitations, chest pain, SOB or dizzinessVital sign were reviewedblood sugar remains elevated, increase glargine to 18U105/03/24patient seen on daily roundsno overnight reports from the nurseNo reports of N/V/D/C, fever, chills, palpitations, chest pain, SOB or dizzinessVital sign were reviewedblood sugar remained elevated, increase glargine to 21 ulabs unremarkable, continue ylhgrbm12/22Se and evaluated at bedside. No acute events [...] pantoprazole. WIll plan to discuss TF with wildlife removal specialist. Objective data reviewed.03/06/25patient seen on daily roundsno overnight reports from the nurse.No reports of N/V/D/C, fever, chills, palpitations, chest pain, SOB or dizzinessVital sign were reviewedlabs unremarkable, UA negative, blood sugar remained elevated, Increase glargine 30 units,continue [id number]/25/25patient seen on daily roundsno overnight reports from [...] overnight. Overall feeling well without complaints.Objective data reviewed.03/10Seen and evaluated at bedside. No acute events [...] Gabapentin, Lactobacillus, PRN Lidocaine, PRN Melatonin, PRN [place], PRN Zofran, Pantoprazole, Miralax, SimethiconeAdjusted meds: Lantus, SSIStopped meds: Albuterol, Amlodipine 5 mg, Famotidine 20 mg, Renvela 800 mg TID, Tube Feeding (Nepro QID), Atorvastatin 80 mg, Baby ASA, Carvedilol 6.25 mg BID, CoQ10, Hydralazine 50 mg BID, PCP Dr. Meng Lucero in [facility] Code.Sadie is daughter Carey. He [...] can be monitored.---03/21/25Pt was recently readmitted to [facility] from 03/18 to 03/20/25. Per nursing notes [...] 10/10 pain to RLQ... send patient to [facility] for evaluation. KUB from facility received after pt left, read, No radiographic evidence for bowelobstruction or bowel perforation. Do incidentally note comment, Contrast noted in the lower left colon/rectum, suspect from prior MBS. He was admitted to [facility], where he was noted to have a [...] work remained stable. Plan for discharge to [place] at this time. He was discharged with [...] by nursing. He has received his PRN [place] this morning and is having regular BMs since his return. VSS otherwise. Staff is without concerns beyond aforementioned. 03/22/25:Again patient had an episode of crampy right lower quadrant abdominal pain. This improved after he had a bowel movement. He did tolerate tube feeds without nausea and vomiting. 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 The hospital course was uncomplicated, with resolution of the acute fecal impaction and stabilization of his chronic comorbidities. He was discharged with NNO. It does [...] by nursing. He has received his PRN [place] this morning and is having regular BMs since his return. VSS otherwise. Staff is without concerns beyond aforementioned.---03/22/25Again patient had an episode of crampy right lower quadrant abdominal pain. This improved after he had a bowel movement. He did tolerate tube feeds without nausea and vomiting. His fiancee was at bedside.---03/23/25Zac is seated at the lunch table, eating his lunch with good appetite and quickly. He remains dysphasic and can answer questions in yes/no form but otherwise cannot answer questions asked. He reports that his RLQ pain is much improved but is still present. It does not appear to be nearly as bothersome as it was previously and he is participating with therapies. He does not appear to be in distress otherwise. VSS. Staff is without concerns at this time. Per therapy notes = Patient performed supine <> sit: requiring moderate assist with LE's and trunk. Patient performed pivot transfers requiring moderate assist x2 for pivot from EOB to wheelchair with cueing for sequencing and safety... Patient performed standing trials in ambrosio steady - max/mod assist x2 to stand, pt able to tolerate standing x2 per trial. Encouraged pt to attempt weight shifting. Rest breaks taken as needed due to fatigue. Makenzie Lamar, KRISTI [id number] [facility], [place], [address], [place] [facility] 03/23/2025 20:39:51
--- OUTSIDE RECORDS SUMMARY | 2025-03-25 11:24 | XMS_ITS | Continuity of Care Document ---
Author Organization [place] [facility] [place] Address [address] [place] [address] Care Team Providers Care Health And Wellness Advisor Name Role Phone P [facility] FAX OTHER MENG CHEN Primary Care Provider Assessment Encounter Date Assessment Date Assessment LastModified by Organization Details LastModified Time 03/23/2025 03/23/2025 Nursing to contact neurology Dr. Lori Clay to see if he is supposed to be on baby ASA & Atorvastatin. Adjust Lantus with goal to stop SSI. Consider checking anemia panel with next lab draw. Not available 03/23/2025 20:39:33 Plan of Treatment [...] Modified By Organization Details Last Modified Time 03/23/2025 [id number] I spent 37 minutes providing care to [...] abdom en No observ ation record ed. [facility] [address], [place], [address], 03/20/2025 10:26:15 03/19/20 25 03/18/2025 XR, abdom en No observ ation record ed. [facility] [address], [place], [address], 03/20/2025 10:26:31 Result Notes None recorded. Procedures Surgical History Date Name Laterality Status Provider Name and Address Organization Details Recorded Time 02/06/20 endoscopic placement of gastrostomy [place] [address] [place], [address], [facility] [employer] [facility] 03/17/2025 18:12:51 Imaging Results None recorded. [...] Not Available Vitals Date Recorded Body height Heart rate Body temperature Respiratory rate Oxygen saturation Body mass index (BMI) Body weight Systolic And Diastolic Provider Name and Address Organization Details Last Updated DateTime 187.96 cm 68 /min 97.9 [degF] 18 /min 96 % 27 kg/m2 41099.5 5 g 149/75 mm[Hg] [place] [address] [place], [address] 20:29:10 Social History Question Answer Notes LastModified by Organizat ion Details LastModified Time Tobacco Smoking Status Unknown If Ever Smoked possible [place] [address] [place], [address], [facility] 03/17/2025 17:54:49 Do You Have An Advance Directive? No [email or web address] Information not available 03/17/2025 What Is Your Relationship Status? Domestic Partner Information not available 03/17/2025 Sex: Unknown Functional [...] ICD10 Code Diagnosis IMO Codes Diagnosis Note [id number] Meme Adorno DO [place] [address] [facility] [address] 03/17/2025 09:44:15 03/25/2025 06:04:25 Hypertensive heart AND chronic kidney disease stage 3 [id number] 9100 I13.10 N18.30 [id number] Pt was taking Carvedilol , Chlorthali done, Felodipine , Hydralazin e, and Losartan as OP. All of these medication s were discontinu ed while inpatient. Stable off medication s.Continue to trend blood pressures, monitor lytes and renal function, and add meds as clinically indicated. Insulin tr eated type 2 diabetes mellitus 102294594 E11.9 Z79.4 517523 HgA1c 7.8% on 01/16/25. Pt was on Humulin 70/30 (30 u BID) prior to hospitaliz ation. This was changed to Lantus & SSI while inpatient. Continue Lantus & SSI. Goal is to adjust Lantus so can stop SSI.Monito r blood sugars and encourage LCS diet. Mixed hyperlipidemia 267 882271 E78.2 32653 SEE ABOVE... Hemiparesi s as late effect of cerebrovascular accident 524366131 I69.351 04407439 SEE ABOVE... Ischemic stroke 80039658 2 I63.9 558989 CTA head and neck on 01/16 showed [...] was placed on 02/05. However, while at [facility], he improved markedly and was transition ed away from using his PEG tube.Urszula nue Baclofen, Gabapentin , and PRN Lidocaine patch, APAP, & [place].Cont inue PT/OT/ST.R D to follow.F/U with Dr. Lori Clay (neurology ) in [place], [place] as OP. Aphasia 72132170 I69.585 6897957 SEE ABOVE... Dysphagia as a late effect of cerebrovascular accident 564174464 I69.133 8394848 SEE ABOVE... Aspiration pneumonitis 943000147 J69.0 2756 Suspected due to accidental large bolus TF while inpatient. Completed antibiotic regimen with resolution .Monitor respirator y symptoms for recurrence .ST to follow. Gastrostom y tube in situ 749551219 Z93.2 1800127597 SEE ABOVE... Acute kidney injury 1466 9001 N17.9 864011 Per records, baseline Cr is 2.68. Cr peaked at 4.3 while inpatient, improved with fluids and cessation of Chlorthali done.Monit or labs closely and avoid nephrotoxi ns.F/U with Dr. Destiny Wiseman (nephrolog y) in [place], [place] as OP. Hypernatremia 774324359 E87.0 74313 Resolved with fluids. Monitor level. Physical deconditioning 1435296625 9102 R53.81 257326 Related to age, recent inpatient stay, and multiple comorbidit ies. Continue PT/OT/ST and monitor progress. Discharge planning is unclear at this point. Will likely need placement. SW to follow. Anemia 765048742 D64.9 88839043 Hgb 9s. Consider checking anemia panel as do not see that this was done while inpatient. Continue to trend Hgb. Vitamin D deficiency 347 03759 E55.9 45288 Per history. Not on supplement . Monitor for need. Chronic constipation 236 468006 K59.09 771712 Stable. Continue Miralax. Additional cathartics available per standing orders. Chronic insomnia 8616977 04 F51.04 062814 Continue PRN Melatonin. Vomiting 218998784 R11.1 0 1185529536 Improved. Continue Simethicon e, Pantoprazo le, and PRN Zofran. Recurrent major depressive episodes 009988799 F33.9 63560129 Stable at present. Continue Fluoxetine . [id number] Meme Adorno DO [address] [place] [address] 03/21/2025 10:06:25 03/25/2025 06:05:18 Acute constipation 544292466 K59.[address] imaging noted fecal impaction with stercoral colitis. Treated with cathartics while inpatient. Continue Miralax, Senna BID, & Simethicon e QID. Additional cathartics available per standing orders.Als o on Baclofen, Gabapentin , and PRN APAP & [place] for pain.If not having routine BMs, will schedule suppositor ies routinely. May need to add Lactulose, however pt is having frequent stools at this point. Right lowe r quadrant pain 085877279 R10.31 760664 SEE ABOVE... Ischemic stroke 30757663 2 I63.9 498617 CTA head and neck on 01/16 showed [...] was placed on 02/05. However, while at [facility], he improved markedly and was transition [...] Baclofen, Gabapentin , and PRN APAP & [place].Cont inue PT/OT/ST.R D to follow.F/U with Dr. Lori Clay (neurology ) in [place] as OP. Hemiparesi s as late effect of cerebrovascular accident 807462497 I69.351 90386386 SEE ABOVE... Aphasia 86095744 I69.827 2935555 SEE ABOVE... Dysphagia as a late effect of cerebrovascular accident 154896905 I69.250 4333118 SEE ABOVE... Gastrostom y tube in situ 492643521 Z93.7 2782684558 SEE ABOVE... Aspiration pneumonitis 783652546 J69.0 2756 Suspected due to accidental large bolus TF while inpatient. Completed antibiotic regimen with resolution .Monitor respirator y symptoms for recurrence .ST to follow. Acute kidney injury 1466 9001 N17.9 803260 Per records, baseline Cr is 2.68. Cr peaked at 4.3 while inpatient, improved with fluids and cessation of Chlorthali done.Monit or labs closely and avoid nephrotoxi ns.Nursing to make sure that RD has evaluated and calculated proper fluid intake. Receiving 200 ml BID free water flushes per tube. Otherwise intake is PO.F/U with Dr. Destiny Wiseman (nephrolog y) in [place], [place] as OP. Hypertensi ve heart AND chronic kidney disease stage 3 2280764409 9100 I13.10 N18.30 58258187 Pt was taking Carvedilol , Chlorthali done, Felodipine , Hydralazin e, and Losartan as OP. All of these medication s were discontinu ed while inpatient. Stable off medication s.Continue to trend blood pressures, monitor lytes and renal function, and add meds as clinically indicated. Hypernatremia 754007556 E87.0 93355 Resolved with fluids. Monitor level. Insulin tr eated type 2 diabetes mellitus 834041651 E11.9 Z79.4 863864 HgA1c 7.8% on 01/16/25. Pt was on Humulin 70/30 (30 u BID) prior to hospitaliz ation. This was changed to Lantus & SSI while inpatient. HgA1c 8.3% on 03/20/25.Co ntinue Lantus & SSI. Goal is to adjust Lantus so can stop SSI.Monito r blood sugars and encourage LCS diet. Anemia 230779534 D64.9 32604439 Hgb 9s. Consider checking anemia panel as do not see that this was done while inpatient. Continue to trend Hgb. Mixed hyperlipidemia 267 602268 E78.2 78687 SEE ABOVE... Recurrent major depressive episodes 116693673 F33.9 24750370 Stable at present. Continue Fluoxetine . Chronic insomnia 2835001 04 F51.04 865794 Continue PRN Melatonin. Vomiting 560736160 R11.1 0 3142854169 Resolved. Continue Simethicon e, Pantoprazo le, and PRN Zofran.SEE ABOVE... Vitamin D deficiency 347 13263 E55.9 26159 Per history. Not on supplement . Monitor for need. Physical deconditioning 0763675918 9102 R53.81 477836 Related to age, recent inpatient stay, and multiple comorbidit ies.Contin ue PT/OT/ST and monitor progress. Discharge planning is unclear at this point. Will likely need placement. SW to follow. Nodule of lung 105268000 R91.[address] on 03/19 at [facility] incidental ly noted 15 mm right lower lobe pulmonary nodule, which may be infection or primary bronchogen ic carcinoma. Noncontras t chest CT is recommende d in 1-3 months. Interstiti al opacities in right middle lobe and right lower lobe, consistent with mild pulmonary edema versus chronic interstiti al lung disease. Small right pleural effusion. PCP to f/u as OP. Stercoral colitis 678219 001 K52.89 3089252852 SEE ABOVE... [id number] Vidal Barbosa MD [address] [address] 03/22/2025 19:23:43 03/22/2025 19:30:31 Right lower quadrant pain 150455134 R10.31 275766 SEE ABOVE... Acute constipation [address] imaging noted fecal impaction with stercoral colitis. Treated with cathartics while inpatient. Continue Miralax, Senna BID, & Simethicon e QID. Additional cathartics available per standing orders.Als o on Baclofen, Gabapentin , and PRN APAP & [place] for pain.If not having routine BMs, will schedule suppositor ies routinely. May need to add Lactulose, however pt is having frequent stools at this point.Limi t narcotic use. Yeah Stercoral colitis 819110 001 K52.89 9915318477 SEE ABOVE... Nodule of lung 611908243 R91.[address] on 03/19 at [facility] incidental ly noted 15 mm right lower lobe pulmonary nodule, which may be infection or primary bronchogen ic carcinoma. Noncontras t chest CT is recommende d in 1-3 months. Interstiti al opacities in right middle lobe and right lower lobe, consistent with mild pulmonary edema versus chronic interstiti al lung disease. Small right pleural effusion. PCP to f/u as OP. Ischemic stroke 76043249 2 I63.9 651799 CTA head and neck on 01/16 showed [...] was placed on 02/05. However, while at [facility], he improved markedly and was transition [...] Baclofen, Gabapentin , and PRN APAP & [place].Cont inue PT/OT/ST.R D to follow.F/U with Dr. Lori Clay (neurology ) in [place] as OP. Hemiparesi s as late effect of cerebrovascular accident 169921350 I69.351 29038324 SEE ABOVE... Aphasia 25043140 I69.692 6950022 SEE ABOVE... Dysphagia as a late effect of cerebrovascular accident 756108868 I69.412 1022175 SEE ABOVE... Gastrostom y tube in situ 823998699 Z93.0 3453520375 SEE ABOVE... Aspiration pneumonitis 366137645 J69.0 2756 Suspected due to accidental large bolus TF while inpatient. Completed antibiotic regimen with resolution .Monitor respirator y symptoms for recurrence .ST to follow. Acute kidney injury 1466 9001 N17.9 539376 Per records, baseline Cr is 2.68. Cr peaked at 4.3 while inpatient, improved with fluids and cessation of Chlorthali done.Monit or labs closely and avoid nephrotoxi ns.Nursing to make sure that RD has evaluated and calculated proper fluid intake. Receiving 200 ml BID free water flushes per tube. Otherwise intake is PO.F/U with Dr. Destiny Wiseman (nephrolog y) in [place] as OP. Hypertensi ve heart AND chronic kidney disease stage 3 3732765447 9100 I13.10 N18.30 35751237 Pt was taking Carvedilol , Chlorthali done, Felodipine , Hydralazin e, and Losartan as OP. All of these medication s were discontinu ed while inpatient. Stable off medication s.Continue to trend blood pressures, monitor lytes and renal function, and add meds as clinically indicated. Hypernatremia 964156831 E87.0 13410 Resolved with fluids. Monitor level. Insulin tr eated type 2 diabetes mellitus 540885608 E11.9 Z79.4 805777 HgA1c 7.8% on 01/16/25. Pt was on Humulin 70/30 (30 u BID) prior to hospitaliz ation. This was changed to Lantus & SSI while inpatient. HgA1c 8.3% on 03/20/25.Co ntinue Lantus & SSI. Goal is to adjust Lantus so can stop SSI.Monito r blood sugars and encourage LCS diet. Anemia 972543755 D64.9 66217051 Hgb 9s. Consider checking anemia panel as do not see that this was done while inpatient. Continue to trend Hgb. Mixed hyperlipidemia 267 353615 E78.2 83187 SEE ABOVE... Recurrent major depressive episodes 868338673 F33.9 50708819 Stable at present. Continue Fluoxetine . Chronic insomnia 2934934 04 F51.04 089132 Continue PRN Melatonin. Vomiting 706204001 R11.1 0 9592124082 Resolved. Continue Simethicon e, Pantoprazo le, and PRN Zofran.SEE ABOVE... Vitamin D deficiency 347 75075 E55.9 33355 Per history. Not on supplement . Monitor for need. Physical deconditioning 9155010644 9102 R53.81 832826 Related to age, recent inpatient stay, and multiple comorbidit ies.Contin ue PT/OT/ST and monitor progress. Discharge planning is unclear at this point. Will likely need placement. SW to follow. [id number] Meme Adorno, [address] [place] [address] 03/23/2025 13:28:00 03/23/2025 20:39:53 Acute constipation 801392053 K59.[address] imaging noted fecal impaction with stercoral colitis. Treated with cathartics while inpatient. Continue Miralax, Senna BID, & Simethicon e QID. Additional cathartics available per standing orders. Pt is having regular BMs 1-2 times a day.Also on Baclofen, Gabapentin , and PRN APAP & [place] for pain.Limit narcotic use. Stercoral colitis 758952 001 K52.89 2528412160 SEE ABOVE... Right lowe r quadrant pain 607327507 R10.31 455546 SEE ABOVE... Nodule of lung 887284549 R91.[address] on 03/19 at [facility] incidental ly noted 15 mm right lower lobe pulmonary nodule, which may be infection or primary bronchogen ic carcinoma. Noncontras t chest CT is recommende d in 1-3 months. Interstiti al opacities in right middle lobe and right lower lobe, consistent with mild pulmonary edema versus chronic interstiti al lung disease. Small right pleural effusion. PCP to f/u as OP. Ischemic stroke 24739743 2 I63.9 284389 CTA head and neck on 01/16 showed [...] was placed on 02/05. However, while at [facility], he improved markedly and was transition [...] Baclofen, Gabapentin , and PRN APAP & [place].Cont inue PT/OT/ST.R D to follow.F/U with Dr. Lori Clay (neurology ) in [place] as OP. Hemiparesi s as late effect of cerebrovascular accident 923802842 I69.351 06580208 SEE ABOVE... Aphasia 55475560 I69.076 3285566 SEE ABOVE... Dysphagia as a late effect of cerebrovascular accident 734732075 I69.991 9402527 SEE ABOVE... Gastrostom y tube in situ 140063513 Z93.8 4679342173 SEE ABOVE... Aspiration pneumonitis 921913523 J69.0 2756 Suspected due to accidental large bolus TF while inpatient. Completed antibiotic regimen with resolution .Monitor respirator y symptoms for recurrence .ST to follow. Acute kidney injury 1466 9001 N17.9 869311 Per records, baseline Cr is 2.68. Cr peaked at 4.3 while inpatient, improved with fluids and cessation of Chlorthali done.Monit or labs closely and avoid nephrotoxi ns.Nursing to make sure that RD has evaluated and calculated proper fluid intake. Receiving 200 ml BID free water flushes per tube. Otherwise intake is PO.F/U with Dr. Destiny Wiseman (nephrolog y) in [place] as OP. Hypertensi ve heart AND chronic kidney disease stage 3 8062008369 9100 I13.10 N18.30 21260804 Pt was taking Carvedilol , Chlorthali done, Felodipine , Hydralazin e, and Losartan as OP. All of these medication s were discontinu ed while inpatient. Stable off medication s.Continue to trend blood pressures, monitor lytes and renal function, and add meds as clinically indicated. Hypernatremia 479932508 E87.0 13554 Resolved with fluids. Monitor level. Insulin tr eated type 2 diabetes mellitus 523381025 E11.9 Z79.4 821240 HgA1c 7.8% on 01/16/25. Pt was on Humulin 70/30 (30 u BID) prior to hospitaliz ation. This was changed to Lantus & SSI while inpatient. HgA1c 8.3% on 03/20/25.Co ntinue Lantus & SSI. Goal is to adjust Lantus so can stop SSI.Monito r blood sugars and encourage LCS diet. Anemia 947055806 D64.9 47266823 Hgb 9s. Consider checking anemia panel as do not see that this was done while inpatient. Continue to trend Hgb. Mixed hyperlipidemia 267 117901 E78.2 04293 SEE ABOVE... Recurrent major depressive episodes 767139225 F33.9 85767427 Stable at present. Continue Fluoxetine . Chronic insomnia 4434466 04 F51.04 994905 Continue PRN Melatonin. Vomiting 765136794 R11.1 0 1352840047 Resolved. Continue Simethicon e, Pantoprazo le, and PRN Zofran.SEE ABOVE... Vitamin D deficiency 347 84420 E55.9 71857 Per history. Not on supplement . Monitor for need. Physical deconditioning 6089413592 9102 R53.81 445392 Related to age, recent inpatient stay, and [...] Member ID Henning Member ID Guarantor Name 03/23/2025 1 [employer] ([place] Zac Valenzuela [id number] Zac Valenzuela 03/23/2025 2 [employer] (MEDICARE SUPPLEMENT) Zac Valenzuela [id number] Zac Valenzuela Notes Date Note Type Note Provider Name and Address Organization Details Recorded Time 03/23/2025 text/html F/U recent large LMCA acute CVA with [R] hemiparesis, aphasia, dysphagia s/p PEG tube placement, aspiration of tube feeding with pneumonitis, HUSSEIN on CKD-3/4, hypernatremia, acute RLQ pain secondary to constipation/fecal impaction, weakness, and chronic medical conditions.---Danidl is seated in his w/c in the [...] his intake closely so this can be monitored.--- Tali was recently readmitted to [facility] from 03/18 to 03/20/25 for acute [...] by nursing. He has received his PRN [place] this morning and is having regular BMs since his return. VSS otherwise. Staff is without concerns beyond aforementioned.---1 05/23/24Again patient had an episode of crampy right lower quadrant abdominal pain. This improved after he had a bowel movement. He did tolerate tube feeds without nausea and vomiting. His fiancee was at bedside.---03/23/25 Zac is seated at the lunch table, eating [...] needed due to fatigue. Makenzie Lamar, KRISTI [address] [facility], [place], [address], [place] [facility] 03/23/2025 20:39:51
--- OUTSIDE RECORDS SUMMARY | 2025-03-25 11:24 | XMS_ITS | Continuity of Care Document ---
Author Organization [place] [facility], [facility] [place] Address [address] [place] [address] Care Team Providers Care Addictions Counselor Name Role Phone [facility] FAX OTHER MENG CHEN Primary Care Provider [phone] Assessment Encounter Date Assessment Date Assessment LastModified by Organization Details LastModified Time 03/21/2025 03/21/2025 D/C PRN Gabapentin. Nursing to [...] to stop SSI. Not available 03/22/2025 08:27:09 Plan of Treatment Reminders Order Date Submit [...] Modified By Organization Details Last Modified Time 03/21/2025 [id number] I spent 55 minutes providing care to the patient today. More than 50% of that time was spent in discussing the expected course of the disease, discussing prognosis, coordinating care and counseling of the patient/family. [email or web address] Not available 03/22/2025 08:27:37 Reason for Referral None Reported. Results Created Date Observation Date Name Description Value Unit Range Abnormal Flag Note LastModifiedBy Organization Detail LastModifiedTime 03/19/2003/18/2025 XR, abdom en No observ ation record ed. [email or web address] [place] [facility] [address], [place], [address], 03/20/2025 10:26:15 03/19/20 25 03/18/2025 XR, abdom en No observ ation record ed. [email or web address] [place] [facility] [address] [place], [address], 03/20/2025 10:26:31 Result Notes None recorded. Procedures Surgical History Date Name Laterality Status Provider Name and Address Organization Details Recorded Time 02/06/20 endoscopic placement of gastrostomy tube completed Makenzie Lamar, KRISTI [address] [place], [address], [facility] 03/17/2025 18:12:51 Imaging Results None [...] [degF] 18 /min 98 % 27 kg/m2 51588.8 3 g 125/80 mm[Hg] [place] [address] [place], [address] [place] [address] 07:52:38 Date Recorded Body height Body temperature Heart rate Oxygen saturation Respiratory rate Systolic And Diastolic Provider Name and Address Organization Details Last Updated DateTime 5 187.96 cm 98.6 [degF] 65 /min 96 % 16 /min 110/70 mm[Hg] [place] [address] [place], [address] 19:24:14 Social History Question Answer Notes LastModified by Organizat ion Details LastModified Time Tobacco Smoking Status Unknown If Ever Smoked possible [place] [address] [place], [address], [place] [facility] 03/17/2025 17:54:49 Do You Have [...] ICD10 Code Diagnosis IMO Codes Diagnosis Note [id number] Meme Adorno, [address] [address] 03/17/2025 09:44:15 03/25/2025 06:04:25 Hypertensive heart AND chronic kidney disease stage 3 4960208033 9100 I13.10 N18.30 [id number] Pt was taking Carvedilol , Chlorthali done, Felodipine , Hydralazin e, and Losartan as OP. All of these medication s were discontinu ed while inpatient. Stable off medication s.Continue to trend blood pressures, monitor lytes and renal function, and add meds as clinically indicated. Insulin tr eated type 2 diabetes mellitus 079643657 E11.9 Z79.4 801547 HgA1c 7.8% on 01/16/25. Pt was on Humulin 70/30 (30 u BID) prior to hospitaliz ation. This was changed to Lantus & SSI while inpatient. Continue Lantus & SSI. Goal is to adjust Lantus so can stop SSI.Monito r blood sugars and encourage LCS diet. Mixed hyperlipidemia 267 696538 E78.2 06376 SEE ABOVE... Hemiparesi s as late effect of cerebrovascular accident 454534867 I69.351 44828796 SEE ABOVE... Ischemic stroke 90542447 2 I63.9 025648 CTA head and neck on 01/16 showed [...] was [facility] on [facility]. [facility] and was transition ed away from using his PEG tube.Urszula nue Baclofen, Gabapentin , and PRN Lidocaine patch, APAP, & Mcguffey.Cont inue PT/OT/ST.R D to follow.F/U with Dr. Lori Clay (neurology ) in [place], [place] as OP. Aphasia 85342481 I69.866 9858129 SEE ABOVE... Dysphagia as a late effect of cerebrovascular accident 981351927 I69.732 8992702 SEE ABOVE... Aspiration pneumonitis 507495707 J69.0 2756 Suspected due to accidental large bolus TF while inpatient. Completed antibiotic regimen with resolution .Monitor respirator y symptoms for recurrence .ST to follow. Gastrostom y tube in situ 257960405 Z93.8 4400734829 SEE ABOVE... Acute kidney injury 1466 9001 N17.9 114086 Per records, baseline Cr is 2.68. Cr peaked at 4.3 while inpatient, improved with fluids and cessation of Chlorthali done.Monit or labs closely and avoid nephrotoxi ns.F/U with Dr. Destiny Wiseman (nephrolog y) in [place], [place] as OP. Hypernatremia 862739879 E87.0 90284 Resolved with fluids. Monitor level. Physical deconditioning 9072293310 9102 R53.81 081541 Related to age, recent inpatient stay, and multiple comorbidit ies. Continue PT/OT/ST and monitor progress. Discharge planning is unclear at this point. Will likely need placement. SW to follow. Anemia 835840035 D64.9 84863576 Hgb 9s. Consider checking anemia panel as do not see that this was done while inpatient. Continue to trend Hgb. Vitamin D deficiency 347 06234 E55.9 66031 Per history. Not on supplement . Monitor for need. Chronic constipation 236 554070 K59.09 234481 Stable. Continue Miralax. Additional cathartics available per standing orders. Chronic insomnia 3612984 04 F51.04 525034 Continue PRN Melatonin. Vomiting 873871098 R11.1 0 7485634066 Improved. Continue Simethicon e, Pantoprazo le, and PRN Zofran. Recurrent major depressive episodes 334229355 F33.9 13623586 Stable at present. Continue Fluoxetine . [id number] Meme Adorno, DO [facility] [address] [place] [address] 03/21/2025 10:06:25 03/25/2025 06:05:18 Acute constipation 919260395 K59.[address] imaging noted fecal impaction with stercoral colitis. Treated with cathartics while inpatient. Continue Miralax, Senna BID, & Simethicon e QID. Additional cathartics available per standing orders.Als o on Baclofen, Gabapentin , and PRN APAP & Mcguffey for pain.If not having routine BMs, will schedule suppositor ies routinely. May need to add Lactulose, however pt is having frequent stools at this point. Right lowe r quadrant pain 876143513 R10.31 340423 SEE ABOVE... Ischemic stroke 26683272 2 I63.9 378080 CTA head and neck on 01/16 showed [...] was placed on 02/05. However, while at [facility], he improved markedly and was transition [...] Baclofen, Gabapentin , and PRN APAP & Mcguffey.Cont inue PT/OT/ST.R D to follow.F/U with Dr. Lori Clay (neurology ) in [place] as OP. Hemiparesi s as late effect of cerebrovascular accident 765842833 I69.351 35451880 SEE ABOVE... Aphasia 63861582 I69.853 6853864 SEE ABOVE... Dysphagia as a late effect of cerebrovascular accident 064949178 I69.004 8115526 SEE ABOVE... Gastrostom y tube in situ 739550841 Z93.6 4074562228 SEE ABOVE... Aspiration pneumonitis 251166124 J69.0 2756 Suspected due to accidental large bolus TF while inpatient. Completed antibiotic regimen with resolution .Monitor respirator y symptoms for recurrence .ST to follow. Acute kidney injury 1466 9001 N17.9 602050 Per records, baseline Cr is 2.68. Cr peaked at 4.3 while inpatient, improved with fluids and cessation of Chlorthali done.Monit or labs closely and avoid nephrotoxi ns.Nursing to make sure that RD has evaluated and calculated proper fluid intake. Receiving 200 ml BID free water flushes per tube. Otherwise intake is PO.F/U with Dr. Destiny Wiseman (nephrolog y) in [place], [place] as OP. Hypertensi ve heart AND chronic kidney disease stage 3 7993938050 9100 I13.10 N18.30 92563504 Pt was taking Carvedilol , Chlorthali done, Felodipine , Hydralazin e, and Losartan as OP. All of these medication s were discontinu ed while inpatient. Stable off medication s.Continue to trend blood pressures, monitor lytes and renal function, and add meds as clinically indicated. Hypernatremia 091313429 E87.0 19736 Resolved with fluids. Monitor level. Insulin tr eated type 2 diabetes mellitus 319307551 E11.9 Z79.4 665494 HgA1c 7.8% on 01/16/25. Pt was on Humulin 70/30 (30 u BID) prior to hospitaliz ation. This was changed to Lantus & SSI while inpatient. HgA1c 8.3% on 03/20/25.Co ntinue Lantus & SSI. Goal is to adjust Lantus so can stop SSI.Monito r blood sugars and encourage LCS diet. Anemia 258853070 D64.9 68246886 Hgb 9s. Consider checking anemia panel as do not see that this was done while inpatient. Continue to trend Hgb. Mixed hyperlipidemia 267 005663 E78.2 03458 SEE ABOVE... Recurrent major depressive episodes 237359515 F33.9 14177053 Stable at present. Continue Fluoxetine . Chronic insomnia 8653769 04 F51.04 751610 Continue PRN Melatonin. Vomiting 802705335 R11.1 0 6177788591 Resolved. Continue Simethicon e, Pantoprazo le, and PRN Zofran.SEE ABOVE... Vitamin D deficiency 347 65828 E55.9 12699 Per history. Not on supplement . Monitor for need. Physical deconditioning 0281758776 9102 R53.81 444922 Related to age, recent inpatient stay, and multiple comorbidit ies.Contin ue PT/OT/ST and monitor progress. Discharge planning is unclear at this point. Will likely need placement. SW to follow. Nodule of lung 798352119 R91.[address] on 03/19 at [facility] incidental ly noted 15 mm right lower lobe pulmonary nodule, which may be infection or primary bronchogen ic carcinoma. Noncontras t chest CT is recommende d in 1-3 months. Interstiti al opacities in right middle lobe and right lower lobe, consistent with mild pulmonary edema versus chronic interstiti al lung disease. Small right pleural effusion. PCP to f/u as OP. Stercoral colitis 435062 001 K52.89 6008409612 SEE ABOVE... Health Concerns Section Related Observation LastModified by Organization Detai ls LastModified Time None Recorded Concern Status LastModified by Organization Details LastModified Time None Recorded Payers Encounter Date Sequence Insurance Name Policy Number Policy Henning Covered Member ID Henning Member ID Guarantor Name 03/21/2025 1 [place] Zac Valenzuela [id number] Zac Valenzuela 03/21/2025 2 [employer] (MEDICARE SUPPLEMENT) Zac Valenzuela [id number] Zac Valenzuela Notes Date Note Type Note Provider Name and Address Organization Details Recorded Time 03/21/20 25 text/htm l 70-year-old male with PMH of HTN, DM-2, CKD-3, and HLD presenting for rehabilitation following inpatient stay at [facility] in [place], [place] from 01/16 to 02/08/25 for large LMCA acute CVA with [R] hemiparesis, aphasia, dysphagia s/p PEG tube placement, aspiration of tube feeding with pneumonitis, HUSSEIN on CKD-3/4, hypernatremia, weakness, and chronic medical conditions.It appears he was discharged to [facility] from 02/08 to 02/23/25 (do not have records from this time), then transitioned to [facility] from 02/23 to 03/15/25. He has since transferred here for further rehabilitation. Per original [facility] Discharge Summary =Problem Based course:Zac Valenzuela is a 70-year-old male with the following history as recorded in 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 TF will be changed to nepro and [...] decreased to <180. And subsequently Goal <140. 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- BP is acceptable on Coreg, Hydralazine and NorvascAnemia of CKD- Hb stable New meds: Amlodipine, Augmentin x 7 days, Colace, Famotidine, Prozac, Lantus, SSI, Senna, Renvela, Tube Feeding (Nepro QID) with 200 ml free water BID.Adjusted meds: NoneStopped meds: Astelin, Chlorthalidone, Felodipine, Flonase, Biotin, Humulin 70/30, Losartan, MVI, Fish Oil, Vit C Per [facility] latest records available =Zac [...] Doppler ordered, PM&R follow-up for pain, continue xeyimnm37/18/25patient seen on daily roundsno overnight reports from the nurseNo reports of N/V/D/C, fever, chilis, palpitatlons, chest paln, SOB or dizzinessVital sign were reviewedblood sugar remains elevated, increase glargine to 12U, continue monitorright hand x-ray negative, Doppler xroaskd62/19/25patient seen on daily roundsno ovemight reports from the nurseNo reports of N/V/D/C, fever, chills, palpitations, chest pain, SOB or dizzinessVital sign were reviewedreports right leg sore, PM& R notice and follow-up, per PM&R patient reports RLQ pain, noacute rebounding pain noticed, nurse reports patient's family has viral gastroenteritis, continuemonitorblood sugar remained elevated, increase glargine to 15Ulabs unremarkable, continue slquadj65/20/25patient seen on daily roundsno overnight reports from the nurseNo reports of N/V/D/C, fever, chills, palpitations, chest pain, SOB or dizzinessVital sign were reviewedblood sugar remains elevated, increase glargine to 18U105/03/24patient seen on daily roundsno overnight reports from the nurseNo reports of N/V/D/C, fever, chills, palpitations, chest pain, SOB or dizzinessVital sign were reviewedblood sugar remained elevated, increase glargine to 21 ulabs unremarkable, continue puldyxv59/22Se and evaluated at bedside. No acute events [...] pantoprazole. WIll plan to discuss TF with hydraulics engineer. Objective data reviewed.03/06/25patient seen on daily roundsno overnight reports from the nurse.No reports of N/V/D/C, fever, chills, palpitations, chest pain, SOB or dizzinessVital sign were reviewedlabs unremarkable, UA negative, blood sugar remained elevated, Increase glargine 30 units,continue ooxijxi02/25/25patient seen on daily roundsno overnight reports from [...] Gabapentin, Lactobacillus, PRN Lidocaine, PRN Melatonin, PRN Mcguffey, PRN Zofran, Pantoprazole, Miralax, SimethiconeAdjusted meds: Lantus, [...] can be monitored.---03/21/25Pt was recently readmitted to [facility] from 03/18 to 03/20/25. Per nursing [...] 10/10 pain to RLQ... send patient to [facility] ED for evaluation. KUB from facility received after pt left, read, No radiographic evidence for bowelobstruction or bowel perforation. Do incidentally note comment, Contrast noted in the lower left colon/rectum, suspect from prior MBS. He was admitted to [facility], where he was noted to have a [...] work remained stable. Plan for discharge to [place] at this time. He was discharged with [...] by nursing. He has received his PRN Mcguffey this morning and is having regular BMs since his return. VSS otherwise. Staff is without concerns beyond aforementioned. Makenzie Lamar, KRISTI [address] [facility], [place], [address], [facility] 03/22/2025 08:27:48 03/22/20 25 text/htm l 70-year-old male with PMH of HTN, DM-2, CKD-3, and HLD presenting for rehabilitation following inpatient stay at [facility] in [place], [place] from 01/16 to 02/08/25 for large LMCA acute CVA with [R] hemiparesis, aphasia, dysphagia s/p PEG tube placement, aspiration of tube feeding with pneumonitis, HUSSEIN on CKD-3/4, hypernatremia, weakness, and chronic medical conditions.It appears he was discharged to [facility] from 02/08 to 02/23/25 (do not have records from this time), then transitioned to [facility] from 02/23 to 03/15/25. He has since transferred here for further rehabilitation. 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 TF will be changed to nepro and [...] decreased to <180. And subsequently Goal <140. 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- BP is acceptable on Coreg, Hydralazine and NorvascAnemia of CKD- Hb stable New meds: Amlodipine, Augmentin x 7 days, Colace, Famotidine, Prozac, Lantus, SSI, Senna, Renvela, Tube Feeding (Nepro QID) with 200 ml free water BID.Adjusted meds: NoneStopped meds: Astelin, Chlorthalidone, Felodipine, Flonase, Biotin, Humulin 70/30, Losartan, MVI, Fish Oil, Vit C Per [facility]'s latest records available =Zac [...] 12U, continue monitorright hand x-ray negative, Doppler fbiveto06/19/25patient seen on daily roundsno ovemight reports from the nurseNo reports of N/V/D/C, fever, chills, palpitations, chest pain, SOB or dizzinessVital sign were reviewedreports right leg sore, PM& R notice and follow-up, per PM&R patient reports RLQ pain, noacute rebounding pain noticed, nurse reports patient's family has viral gastroenteritis, continuemonitorblood sugar remained elevated, increase glargine to 15Ulabs unremarkable, continue mlyhsqo40/20/25patient seen on daily roundsno overnight reports from the nurseNo reports of N/V/D/C, fever, chills, palpitations, chest pain, SOB or dizzinessVital sign were reviewedblood sugar remains elevated, increase glargine to 18U105/03/24patient seen on daily roundsno overnight reports from the nurseNo reports of N/V/D/C, fever, chills, palpitations, chest pain, SOB or dizzinessVital sign were reviewedblood sugar remained elevated, increase glargine to 21 ulabs unremarkable, continue /22Se and evaluated at bedside. No acute events [...] pantoprazole. WIll plan to discuss TF with hydraulics engineer. Objective data reviewed.03/06/25patient seen on daily roundsno overnight reports from the nurse.No reports of N/V/D/C, fever, chills, palpitations, chest pain, SOB or dizzinessVital sign were reviewedlabs unremarkable, UA negative, blood sugar remained elevated, Increase glargine 30 units,continue /25/25patient seen on daily roundsno overnight reports from [...] Gabapentin, Lactobacillus, PRN Lidocaine, PRN Melatonin, PRN Mcguffey, PRN Zofran, Pantoprazole, Miralax, SimethiconeAdjusted meds: Lantus, [...] can be monitored.---03/21/25Pt was recently readmitted to [facility] from 03/18 to 03/20/25. Per nursing [...] 10/10 pain to RLQ... send patient to [facility] ED for evaluation. KUB from facility received after pt left, read, No radiographic evidence for bowelobstruction or bowel perforation. Do incidentally note comment, Contrast noted in the lower left colon/rectum, suspect from prior MBS. He was admitted to [facility], where he was noted to have a [...] work remained stable. Plan for discharge to [place] at this time. He was discharged with [...] by nursing. He has received his PRN Mcguffey this morning and is having regular BMs since his return. VSS otherwise. Staff is without concerns beyond aforementioned. 03/22/25:Again patient had an episode of crampy right lower quadrant abdominal pain. This improved after he had a bowel movement. He did tolerate tube feeds without nausea and vomiting. [place] [address] [facility], [place], [address], [facility] 03/22/2025 19:30:29
[2025-03-25 12:58] VITALS: BP 158/95; PULSE 86; RESP 18; O2SAT 100
[2025-03-25] MEDS: HYDROcodone/acetaminophen (*CRX) 5-325 MG TABLET 1 TAB PO (12:58)
[2025-03-25] MEDS: HYDROmorphone HCL INJ (*CRX) 1 MG/ML SYR IM (13:48)
[2025-03-25 14:30] VITALS: BP 142/90; PULSE 63; RESP 18; O2SAT 99
--- NOTE | 2025-03-25 15:30 | ED.GENADULT ---
HPI - General Adult General Chief complaint: Fall Stated complaint: FALL Time Seen by Provider: 03/25/25 11:14 History of Present Illness HPI narrative: patient is 70-year-old gentleman who presents emergency department with chief complaint of fall from wheelchair. is reported the patient has had a prior stroke is normally alert orient x2 at baseline the patient is responding was simple yes no questions the patient had a hematoma present to the right eyebrow area patient reports pain in his legs and arm Related Data Home Medications ?Medication ?Instructions ?Recorded ?Confirmed ?Last Taken ?Type acetaminophen 325 mg tablet 650 mg feeding tube Q4H PRN pain 02/23/25 03/19/25 Unknown History lactobacillus combination no.4 3 3,000 mmu cells PO HS 02/23/25 03/19/25 03/18/25 History billion cell capsule (Probiotic) melatonin 3 mg tablet 3 mg PO HS PRN sleep 02/23/25 03/19/25 Unknown History polyethylene glycol 3350 17 17 g feeding tube DAILY 02/23/25 03/19/25 03/18/25 History gram/dose oral powder (Miralax) sennosides 8.6 mg tablet (senna) 8.6 mg feeding tube BID PRN 02/23/25 03/19/25 Unknown History constipation albuterol sulfate 2.5 mg/3 mL 2.5 mg inhalation Q2H PRN 03/19/25 03/19/25 Unknown History (0.083 %) solution for nebulization shortness of breath or wheezing Allergies Allergy/AdvReac Type Severity Reaction Status Date / Time No Known Allergies Allergy Verified 03/19/25 10:26 Review of Systems Review of Systems: A 10 system review of systems was completed on the patient and is negative except for what is stated in the HPI. Nursing and ancillary documentation was reviewed. [facility] Past Medical History Medical History Lower abdominal pain Expressive aphasia Constipation CKD (chronic kidney disease) Hyperlipidemia Kidney disorder Diabetes Hypertension Family History Family History Father Hypertension Alcoholism Social History Social History Social History: Caffeine- coffee daily Smoking status: Never smoker Tobacco type: cigars Alcohol intake: unknown Alcohol use details: Beer Substance use: never Lack of Transportation: No Lack of Food: Never True Current Housing: I Have Housing Concerned About Future Housing: No Difficulty Paying Gas/Electric Bills: No Difficulty Paying for Meds: No Currently Unemployed: No Education: Don't Know Difficulty w/ Childcare or Family Care: No Living arrangements: alone Occupation/Education: retired 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 HEAD: Normocephalic, Contusion to the right orbit, 1/2 cm laceration to the right eyebrow. EYES: PERRLA and EOMI. ENT: Nares clear, no rhinorrhea or epistaxis. Mucous membranes moist. NECK: Supple. CHEST: Clear to auscultation. No respiratory distress. HEART: Regular rate and rhythm. No murmur heard. Normal peripheral pulses. ABDOMEN: Soft, nontender, nondistended, normal active bowel sounds. EXTREMITIES: Normal range of motion. No edema. SKIN: Warm, dry, no rash. NEURO: No New focal deficits chronic weakness of the right side. Alert and oriented x3. PSYCH: Normal mood and affect. Course Vital Signs Vital signs: Vital Signs Temperature 36.8 C 03/25/25 10:55 Pulse Rate 75 03/25/25 10:55 Respiratory Rate 27 H 03/25/25 10:55 Blood Pressure 151/76 H 03/25/25 10:55 Pulse Oximetry 100 03/25/25 10:55 Oxygen Delivery Room Air 03/25/25 10:55 Temperature 36.8 C 03/25/25 10:55 Pulse Rate 86 03/25/25 12:58 Respiratory Rate 18 03/25/25 12:58 Blood Pressure 158/95 H 03/25/25 12:58 Pulse Oximetry 100 03/25/25 12:58 Oxygen Delivery Room Air 03/25/25 10:55 Procedures Laceration Laceration 1: Date: 03/25/25 Time: 16:21 Site: face ( right eyebrow) Side (If applicable): right Size (cm): 1.5 Description: linear Depth: simple, single layer Local Anesthetic: none Pre-repair: wound explored and irrigated ====== Skin Level ====== Skin layer closed with: dermabond ====== Subcutaneous Layer ====== ====== Muscle Layer ====== ====== Tendon Layer ====== MDM Differential Diagnosis Differential Diagnosis: had her drink, facial fracture, cervical spine fracture, intrathoracic or intra-abdominal trauma. Upper extremity fracture lower extremity fracture. CT head showed no acute abnormality CT facial bones showed no evidence of fractures C-spine showed no fracture. Plain film x-rays were obtained of the right upper extremity and right lower extremity this showed a small possible avulsion fracture in the right elbow the patient was placed in a sling and referred to Orthopedics CT scan of the chest abdomen pelvis showed constipation and also a pulmonary nodule as well as possible infiltrate versus chronic interstitial lung disease Imaging Data Radiologist's impression: ITS Impressions Head CT 03/25/25 13:02 IMPRESSION: HEAD: 1. No acute intracranial findings. C-SPINE: 1. No acute fracture. CT FACE: 1. No facial fracture. 2. Left maxillary molar fracture, and periapical dental lucency/infections. Head/Cervical Spine/Facial Bones CT 03/25/25 13:02 IMPRESSION: HEAD: 1. No acute intracranial findings. C-SPINE: 1. No acute fracture. CT FACE: 1. No facial fracture. 2. Left maxillary molar fracture, and periapical dental lucency/infections. Chest/Abdomen/Pelvis CT 03/25/25 14:57 IMPRESSION: 1. Probable bilateral bronchopneumonia superimposed on chronic lung disease. Right lung nodule concerning for neoplasm. PET CT is recommended 2. Fecal impaction with probable proctitis. 3. Incidental findings above Discharge Plan Discharge Clinical Impression: Fall from ground level, Head injury, Elbow pain, right, Lung nodule, Laceration of eyebrow, right Patient Disposition: NH Senior Care/Asst Living Condition: Stable Instructions: Antibiotic Form, Laceration (ED), Head Injury (ED), Skin Adhesive Care (ED), Pulmonary Nodules (ED), Avulsion Fracture (ED) Additional Instructions: re-x-ray the right elbow showed a possible avulsion fracture versus osteophyte it is recommended that a repeat x-ray be obtained of the elbow in the near future and he may wear the sling for comfort. The scans of the chest abdomen pelvis showed the interstitial lung disease as well as a pulmonary nodule it is recommended that the nodule be followed up as this may need additional testing that could include a PET-CT CT scan did show a large amount of stool patient was given an enema in the emergency department it is recommended to make sure the patient is on appropriate bowel regimen Patient Language: Ukrainian Prescriptions: No Action albuterol sulfate 2.5 mg /3 mL (0.083 %) solution for nebulization 2.5 mg inhalation Q2H PRN (Reason: shortness of breath or wheezing) acetaminophen 325 mg tablet 650 mg feeding tube Q4H PRN (Reason: pain) Probiotic 3 billion cell capsule 3,000 mmu cells PO HS Rx Instructions: administer with a meal melatonin 3 mg tablet 3 mg PO HS PRN (Reason: sleep) polyethylene glycol 3350 [Miralax] 17 gram/dose powder 17 g feeding tube DAILY sennosides [senna] 8.6 mg tablet 8.6 mg feeding tube BID PRN (Reason: constipation) hydrocodone-acetaminophen 5-325 mg tablet 1 tablet PO Q8H PRN (Reason: pain) Qty: 10 0RF insulin lispro [Humalog U-100 Insulin] 100 unit/mL Solution 4 - 8 unit subcut TID.ARISSI Qty: 3 0RF Protocol: Insulin Corrective High-Dose Condition: glucose < 70 mg/dl Dose/Route: Follow hypoglycemia order Condition: glucose 70-200 mg/dl Dose/Route: No additional insulin Condition: glucose 201-250 mg/dl Dose/Route: 4 units sub-Q Condition: glucose 251-300 mg/dl Dose/Route: 5 units sub-Q Condition: glucose 301-350 mg/dl Dose/Route: 6 units sub-Q Condition: glucose 351-400 mg/dl Dose/Route: 8 units sub-Q Condition: glucose > 400 mg/dl Dose/Route: Call MD Protocol Text: *No Correction Dose at Bedtime* baclofen 10 mg Tablet 5 mg feeding tube Q8HR 30 Days Qty: 45 0RF gabapentin 100 mg Capsule 200 mg feeding tube TID 30 Days Qty: 180 0RF gabapentin 100 mg Capsule 100 mg feeding tube TID PRN (Reason: Anxiety) Qty: 0 0RF pantoprazole 40 mg Tablet,Delayed Release (Dr/Ec) 40 mg PO QAM 30 Days Qty: 30 0RF simethicone 80 mg Tablet,Chewable 80 mg feeding tube QID Qty: 0 0RF ondansetron HCl 4 mg tablet 4 mg PO Q4H PRN (Reason: nausea and vomiting) Qty: 20 0RF fluoxetine 20 mg tablet 20 mg feeding tube QPM 30 Days Qty: 30 0RF Follow-up/Referrals: Srinivasan Lucero MD [Primary Care Provider, Internal Medicine] Kang Vidal MD [Physician, Orthopedics] Time of Disposition: 16:16
--- NOTE | 2025-03-25 16:58 | PC.NURSE ---
RN called facility to give report and RN left a message. RN spoke with daughter Carey about discharge and follow-up.
[2025-03-25 17:15] VITALS: BP 159/92; PULSE 76; RESP 18; O2SAT 99
[2025-03-25 18:42] VITALS: BP 138/72; PULSE 50; RESP 18; O2SAT 98
== END 2025-03-25 18:50 ==
PROVIDERS: Emergency Provider Emergency Medicine; PCP Internal Medicine
DX: S01.111A Laceration without foreign body of right eyelid and periocular area, initial encounter (principal); S59.901A Unspecified injury of right elbow, initial encounter; R91.1 Solitary pulmonary nodule; I69.320 Aphasia following cerebral infarction; I69.351 Hemiplegia and hemiparesis following cerebral infarction affecting right dominant side; I12.9 Hypertensive chronic kidney disease with stage 1 through stage 4 chronic kidney disease, or unspecified chronic kidney disease; E11.22 Type 2 diabetes mellitus with diabetic chronic kidney disease; N18.9 Chronic kidney disease, unspecified; E78.5 Hyperlipidemia, unspecified; R93.6 Abnormal findings on diagnostic imaging of limbs; R91.8 Other nonspecific abnormal finding of lung field; K56.41 Fecal impaction; Z79.4 Long term (current) use of insulin; W05.0XXA Fall from non-moving wheelchair, initial encounter
CPT/HCPCS: 12011; 70450; 70486; 71250; 72125; 73030; 73080; 73110; 73502; 73562; 73610; 74176; 90471; 96372; 99284; A4565; A9270; J1171